=== PATIENT | male | born 1950 | race Caucasian/White ===

== ENCOUNTER 2016-06-18 12:10 | Outpatient (CLI) | payer MEDICARE, MEDICAID | END 2016-06-18 12:11 | disposition home or self-care (01) | DX: E11.9 Type 2 diabetes mellitus without complications (principal); E78.5 Hyperlipidemia, unspecified; E03.9 Hypothyroidism, unspecified; I10 Essential (primary) hypertension; R10.9 Unspecified abdominal pain ==

== ENCOUNTER 2018-01-31 11:15 | Outpatient (CLI) | payer MEDICARE, MEDICAID ==
--- NOTE | 2018-01-31 13:03 | Ultrasound Report ---
Reason: UNDIAGNOSED HEART MURMUR Procedure Date: 01/31/2018 Accession Number: [id number] / [id number] Procedure: US - Aorta Screening CPT Code: FULL RESULT: EXAM: AORTIC DOPPLER ULTRASOUND EXAM DATE: 01/31/2018 11:57 AM. CLINICAL HISTORY: Undiagnosed heart murmur. COMPARISON: Abdomen 01/12/2013 8:37 AM. Abdomen complete 11/11/2015 3:12 PM. TECHNIQUE: Real-time sonographic imaging of retroperitoneal vascular structures, including color-flow, Doppler flow and spectral analysis was performed by the pattern ruler. Multiple patient portal representative static images were saved for review. FINDINGS: Aorta: The abdominal aorta was adequately visualized. There is subjectively atherosclerotic disease without evidence of aneurysm. Aorta: Proximal: Sagittal AP: 2.4 cm. Mid: Transverse: 2.1 x 2.1 cm. Distal: Transverse: 1.8 x 1.9 cm. Caliber WNL: Yes. Plaque visualized: Yes. Iliacs: Right Iliac: Transverse: 0.8 x 0.9 cm. Left Iliac: Transverse: 0.7 x 0.8 cm. Iliac Vessels: The visualized proximal common iliac arteries are normal in caliber. Other: None. IMPRESSION: Atherosclerotic disease. No abdominal aortic aneurysm. RADIA
== END 2018-01-31 11:16 | disposition home or self-care (01) ==
LOC: DI 11:15
PROVIDERS: ATTEND Family Medicine
DX: Z13.6 Encounter for screening for cardiovascular disorders (principal); R01.1 Cardiac murmur, unspecified; F17.200 Nicotine dependence, unspecified, uncomplicated; I70.0 Atherosclerosis of aorta
CPT/HCPCS: 76706

== ENCOUNTER 2018-02-02 11:17 | Outpatient (CLI) | payer MEDICARE, MEDICAID | END 2018-02-02 11:18 | disposition home or self-care (01) | LOC: DI 11:17 | PROVIDERS: ATTEND Family Medicine | DX: R01.1 Cardiac murmur, unspecified (principal); I35.8 Other nonrheumatic aortic valve disorders; I34.0 Nonrheumatic mitral (valve) insufficiency; I51.7 Cardiomegaly | CPT/HCPCS: 93306 ==

== ENCOUNTER 2018-03-10 07:45 | Outpatient (CLI) | payer MEDICARE, MEDICAID | END 2018-03-10 07:46 | disposition short-term general hospital (02) | LOC: EMS 07:45 | PROVIDERS: ATTEND Surgery | DX: M54.5 Low back pain (principal); W08.XXXA Fall from other furniture, initial encounter; Y93.89 Activity, other specified; Y92.008 Other place in unspecified non-institutional (private) residence as the place of occurrence of the external cause | CPT/HCPCS: A0425; A0429 ==

== ENCOUNTER 2019-02-27 05:31 | Outpatient (CLI) | payer MEDICARE, MEDICAID | END 2019-02-27 05:32 | disposition EMS.NT | LOC: EMS 05:31 | PROVIDERS: ATTEND Surgery | DX: R06.02 Shortness of breath (principal) ==

== ENCOUNTER 2019-09-03 17:46 | Outpatient (CLI) | payer MEDICARE, MEDICAID | END 2019-09-03 17:47 | disposition critical access hospital (66) | LOC: EMS 17:46 | PROVIDERS: ATTEND Surgery | DX: R58 Hemorrhage, not elsewhere classified (principal) | CPT/HCPCS: A0425; A0429 ==

== ENCOUNTER 2019-09-03 18:06 | Emergency (ER) | payer MEDICARE, MEDICAID ==
[2019-09-03 18:10] VITALS: BP 118/68
--- NOTE | 2019-09-03 18:10 | ED Physician Documentation ---
History of Present Illness - Stated complaint Stated Complaint: ABNORMAL BLEEDING - History obtained from History obtained from: Patient, EMS - Additonal information Additional information: 68-year-old gentleman gets dialysis on //. After dialysis today the access site in the left upper extremity had continued bleeding which they were unable to stop. He has no other complaints. Review of Systems Constitutional: reports: Reviewed and negative Nose: reports: Reviewed and negative Throat: reports: Reviewed and negative PD PAST MEDICAL HISTORY - Past Medical History Cardiovascular: Hypertension, High cholesterol Respiratory: None Endocrine/Autoimmune: HyPOthyroidism GI: GERD : Dialysis HEENT: None Psych: Schizophrenia Musculoskeletal: Chronic back pain Derm: None - Past Surgical History Past Surgical History: Yes General: Cholecystectomy HEENT: Tonsil/Adenoidectomy - Present Medications Home Medications: Ambulatory Orders Medication Instructions Recorded Confirmed Albuterol Sulfate [Proair Hfa] PRN 07/19/13 01/23/15 Calcium Acetate [Phoslo] 667 mg PO TIDWM 07/19/13 01/23/15 Cholecalciferol (Vitamin D3) 1,000 unit PO BID 07/19/13 01/23/15 [Vitamin D] Gabapentin [Neurontin] 600 mg PO Q6HR 07/19/13 01/23/15 Levothyroxine Sodium [Levoxyl] 225 mcg PO DAILY 07/19/13 01/23/15 Lisinopril 20 mg PO DAILY 07/19/13 01/23/15 Loratadine [Claritin] 10 mg PO DAILY 07/19/13 01/23/15 Methylcellulose [Fiber] 500 mg PO 07/19/13 01/23/15 Metoclopramide Inj [Reglan] 07/19/13 01/23/15 Metoprolol Succinate [Toprol Xl] 25 mg PO DAILY 07/19/13 01/23/15 Metoprolol Succinate [Toprol Xl] 50 mg PO QPM 07/19/13 01/23/15 Morphine Ir [Ms Ir] 15 mg PO Q6H PRN 07/19/13 01/23/15 Olanzapine [Zyprexa] 5 mg PO DAILY 07/19/13 01/23/15 Omeprazole [Prilosec] 40 mg PO DAILY 07/19/13 01/23/15 PARoxetine HCl [Paxil] 20 mg PO DAILY 07/19/13 01/23/15 Sevelamer Carbonate [Renvela] 1,600 mg PO AC 07/19/13 01/23/15 Simvastatin [Zocor] 20 mg PO QPM 07/19/13 01/23/15 levoFLOXacin [Levaquin] 500 mg PO ONCE #5 tablet 04/22/14 01/23/15 Aspirin 325 mg PO DAILY 01/23/15 01/23/15 Testosterone [Androderm] 4 mg TOP DAILY 01/23/15 01/23/15 - Allergies Allergies/Adverse Reactions: Allergies Allergy/AdvReac Type Severity Reaction Status Date / Time Penicillins Allergy Severe Unknown Verified 09/03/19 18:10 codeine AdvReac Severe Unknown Verified 09/03/19 18:10 - Social History Does the pt smoke?: Yes Smoking Status: Current every day smoker Does the pt drink ETOH?: No Does the pt have substance abuse?: No - Immunizations Immunizations are current?: Yes - POLST Patient has POLST: No PD ED PE NORMAL - Vitals Vital signs reviewed: Yes - General General: Alert and oriented X 3, No acute distress - Extremities Extremities: Other (He has a clamp on over the dialysis access on the left upper extremity. On my initial evaluation we remove the clamp and there was no active bleeding.) - Neuro Neuro: Alert and oriented X 3, Normal speech Results - Vitals Vitals: Vital Signs - 24 hr 09/03/19 09/03/19 18:06 18:11 Temperature 37.0 C Heart Rate 88 84 Respiratory 16 16 Rate Blood Pressure 118/68 118/68 O2 Saturation 97 100 Oxygen O2 Source Room air Procedures - Laceration (location) LUE Length in cm: 0.1 Wound type: Linear Anesthesia: Lidocaine 1% with epi Wound Preparation: Betadine Skin layer closure: Nylon, Size #-0 - enter number (4-0), Sutures - enter # (1) Complexity: Simple PD MEDICAL DECISION MAKING - ED course ED course: 68-year-old gentleman presents with vascular access bleeding from dialysis, it has stopped on arrival and we will observe him for a bit to make sure there is no recurrence. Subsequently it did start bleeding again a few minutes later and was closed with a single 4 oh horizontal mattress nylon stitch. Departure - Departure Disposition: 01 Home, Self Care Clinical Impression: Surgical arteriovenous fistula hemorrhage Qualifiers: Encounter type: initial encounter Qualified Code(s): T82.838A - Hemorrhage due to vascular prosthetic devices, implants and grafts, initial encounter Condition: Good Record reviewed to determine appropriate education?: Yes Instructions: ED Shunt Dialysis Fistula Bleeding Comments: Come back for any signs of infection which would include: Redness, swelling, drainage, increased pain, or fevers. You can wash it soap and water. Keep it covered and moist with bacitracin ointment which is available over the counter; avoid neosporin. Follow-up with your physician in 7 days for suture removal. Discharge Date/Time: 09/03/19 18:57
[2019-09-03] MEDS ORDERED: LIDOCAINE 1%-EPI 1:100000 20 ML MDV SUBQ STA (18:20)
== END 2019-09-03 18:57 | disposition home or self-care (01) ==
LOC: EDUNIT# → ED 18:06
DX: T82.838A Hemorrhage due to vascular prosthetic devices, implants and grafts, initial encounter (principal); Y83.2 Surgical operation with anastomosis, bypass or graft as the cause of abnormal reaction of the patient, or of later complication, without mention of misadventure at the time of the procedure; Z99.2 Dependence on renal dialysis; I10 Essential (primary) hypertension; F17.200 Nicotine dependence, unspecified, uncomplicated; Z79.82 Long term (current) use of aspirin
CPT/HCPCS: 12001; 99282; 99283

== ENCOUNTER 2020-05-18 15:38 | Outpatient (CLI) | payer MEDICARE, MEDICAID | END 2020-05-18 15:39 | disposition critical access hospital (66) | LOC: EMS 15:38 | PROVIDERS: ATTEND Emergency Medicine | DX: T82.838A Hemorrhage due to vascular prosthetic devices, implants and grafts, initial encounter (principal) | CPT/HCPCS: A0425; A0429 ==

== ENCOUNTER 2020-05-18 15:40 | Emergency (ER) | payer MEDICARE, MEDICAID ==
[2020-05-18] MEDS ORDERED: SODIUM CHLORIDE 0.9% 1,000 ML IV STA ×2 (15:46→16:09)
--- NOTE | 2020-05-18 15:50 | ED Physician Documentation ---
History of Present Illness - Stated complaint Stated Complaint: BLEED - History obtained from History obtained from: Patient - History of Present Illness Timing: Today Pain level max: 0 Pain level now: 0 - Additonal information Additional information: 69-year-old male with a history of dialysis and AV fistula presents to the emergency department with hemorrhaging from the left AV fistula. Patient is minimally responsive here. Tourniquet applied at 1535 by EMS. Review of Systems Unable to obtain: Unresponsive PD PAST MEDICAL HISTORY - Past Medical History Cardiovascular: Hypertension, High cholesterol Respiratory: None Endocrine/Autoimmune: HyPOthyroidism GI: GERD : Dialysis HEENT: None Psych: Schizophrenia Musculoskeletal: Chronic back pain Derm: None - Past Surgical History Past Surgical History: Yes General: Cholecystectomy HEENT: Tonsil/Adenoidectomy - Present Medications Home Medications: Ambulatory Orders Medication Instructions Recorded Confirmed Albuterol Sulfate [Proair Hfa] PRN 07/19/13 01/23/15 Calcium Acetate [Phoslo] 667 mg PO TIDWM 07/19/13 01/23/15 Cholecalciferol (Vitamin D3) 1,000 unit PO BID 07/19/13 01/23/15 [Vitamin D] Gabapentin [Neurontin] 600 mg PO Q6HR 07/19/13 01/23/15 Levothyroxine Sodium [Levoxyl] 225 mcg PO DAILY 07/19/13 01/23/15 Lisinopril 20 mg PO DAILY 07/19/13 01/23/15 Loratadine [Claritin] 10 mg PO DAILY 07/19/13 01/23/15 Methylcellulose [Fiber] 500 mg PO 07/19/13 01/23/15 Metoclopramide Inj [Reglan] 07/19/13 01/23/15 Metoprolol Succinate [Toprol Xl] 25 mg PO DAILY 07/19/13 01/23/15 Metoprolol Succinate [Toprol Xl] 50 mg PO QPM 07/19/13 01/23/15 Morphine Ir [Ms Ir] 15 mg PO Q6H PRN 07/19/13 01/23/15 Olanzapine [Zyprexa] 5 mg PO DAILY 07/19/13 01/23/15 Omeprazole [Prilosec] 40 mg PO DAILY 07/19/13 01/23/15 PARoxetine HCl [Paxil] 20 mg PO DAILY 07/19/13 01/23/15 Sevelamer Carbonate [Renvela] 1,600 mg PO AC 07/19/13 01/23/15 Simvastatin [Zocor] 20 mg PO QPM 07/19/13 01/23/15 levoFLOXacin [Levaquin] 500 mg PO ONCE #5 tablet 04/22/14 01/23/15 Aspirin 325 mg PO DAILY 01/23/15 01/23/15 Testosterone [Androderm] 4 mg TOP DAILY 01/23/15 01/23/15 - Allergies Allergies/Adverse Reactions: Allergies Allergy/AdvReac Type Severity Reaction Status Date / Time Penicillins Allergy Severe Unknown Verified 09/03/19 18:10 codeine AdvReac Severe Unknown Verified 09/03/19 18:10 - Social History Does the pt smoke?: Yes Smoking Status: Current every day smoker Does the pt drink ETOH?: No Does the pt have substance abuse?: No - Immunizations Immunizations are current?: Yes - POLST Patient has POLST: No PD ED PE NORMAL - Vitals Vital signs reviewed: Yes - General General: Other (pale, minimally responsive) - HEENT HEENT: PERRL, Moist mucous membranes - Neck Neck: Supple, no meningeal sign - Cardiac Cardiac: RRR - Respiratory Respiratory: No respiratory distress, Clear bilaterally - Abdomen Abdomen: Soft, Non tender, Non distended - Derm Derm: Warm and dry - Extremities Extremities: Other (large opening in the L AV fistula, minimal ooze. tourniquet in place. ) - Neuro Neuro: Other (drowsy) Eye Opening: To Pain Motor: Withdraws to Pain Verbal: Incomprehensible GCS Score: 8 Results - Vitals Vitals: Vital Signs - 24 hr 05/18/20 05/18/20 05/18/20 16:00 16:01 16:06 Temperature 36.9 C Heart Rate 126 H 125 H 128 H Respiratory 26 H 22 14 Rate Blood Pressure 111/90 H 111/90 H 59/45 L O2 Saturation 100 98 96 05/18/20 05/18/20 05/18/20 16:10 16:11 16:14 Temperature Heart Rate 128 H 129 H 127 H Respiratory 20 20 20 Rate Blood Pressure 49/38 L 58/38 L 61/42 L O2 Saturation 100 100 100 Oxygen O2 Source Mechanical ventilator - Labs Labs: Laboratory Tests 05/18/20 05/18/2021 15:50 15:50 15:50 WBC 4.6 L RBC 2.49 L Hgb 8.2 L Hct 28.3 L MCV 113.7 H MCH 32.9 H MCHC 29.0 L RDW 13.6 Plt Count 149 MPV 11.2 Neut # (Auto) 2.6 Lymph # (Auto) 1.[address] [place] # (Auto) 0.4 Eos # (Auto) 0.2 Baso # (Auto) 0.1 Absolute Nucleated RBC 0.00 Nucleated RBC % 0.0 Manual Slide Review Indicated Platelet Estimate NORMAL (130-450,000) Platelet Morphology NORMAL APPEARANCE RBC Morph Micro Appear 2+ MACROCYTOSIS PT 11.6 INR 1.0 APTT 54.5 H Sodium 142 Potassium 5.2 H Chloride 95 L Carbon Dioxide 16 L Anion Gap 31.0 H BUN 22 H Creatinine 7.2 H* Estimated GFR (MDRD) 8 L Glucose 252 H Calcium 9.5 Total Bilirubin 0.4 AST 25 ALT 11 Alkaline Phosphatase 119 Total Protein 5.5 L Albumin 3.1 L Globulin 2.4 Albumin/Globulin Ratio 1.3 Lipase 19 L Blood Type Antibody Screen Crossmatch IS Only 05/18/20 15:50 WBC RBC Hgb Hct MCV MCH MCHC RDW Plt Count MPV Neut # (Auto) Lymph # (Auto) [place] # (Auto) Eos # (Auto) Baso # (Auto) Absolute Nucleated RBC Nucleated RBC % Manual Slide Review Platelet Estimate Platelet Morphology RBC Morph Micro Appear PT INR APTT Sodium Potassium Chloride Carbon Dioxide Anion Gap BUN Creatinine Estimated GFR (MDRD) Glucose Calcium Total Bilirubin AST ALT Alkaline Phosphatase Total Protein Albumin Globulin Albumin/Globulin Ratio Lipase Blood Type A POSITIVE Antibody Screen NEGATIVE Crossmatch IS Only See Detail - Rads (name of study) cxr Radiology: Prelim report reviewed, EMP read contemporaneously, See rad report (ETT tube in place) Procedures - Intubation Provider: Emergency physician Medications: Ketamine, Rocuronium Blade: Glidescope Tube: Size-enter number (7.5), Cuffed Route: Oral Confirmation: Direct visualization, Bilateral breath sounds, No abdominal breath sound, End tidal CO2, Pulse ox, Chest xray Complications: No compications PD MEDICAL DECISION MAKING - ED course Complexity details: reviewed results, re-evaluated patient, considered differential, d/w family (patient's prior to life flight leaving), d/w animal nutrition consultant ED course: Patient is a 69-year-old male who was on dialysis, last dialysis was yesterday. AV fistula a large hemorrhage today. Hypotensive. Port accessed. IV fluids and blood given. Patient was intubated. Patient will need to be flown emergently to [facility] for vascular surgery evaluation. Discussed the case with Dr. Barragan, emergency department physician at [facility] in [place] who graciously accepts in transfer. COBRA forms completed. This document was made in part using voice recognition software. While efforts are made to proofread this document, sound alike and grammatical errors may occur. The vascular surgery PA called after the patient had left to go to [facility] in [place]. The history and physical exam as well as the patient's current condition were related to him. The vascular PA questioned why our surgeon was not putting a "stitch in the patient's arm" and why the patient was not sent to [facility] instead. I informed him that they are the closest facility with the appropriate services. This patient is well beyond the scope of a general surgeon at a critical access hospital at this point. The patient is unstable at the time of transfer but as stable as our capabilities would allow here. The tourniquet was left in place. - Critical Care Time(min): 45 Time Includes: Direct patient care, Review records, Reassess patient, Document care, Coordinate care, Medical consult, See progress note Data interpretation: See progress note Procedures included in critical care time: See progress note Procedures excluded from critical care time: Intubation, See progress note Departure - Departure Disposition: 02 Transfer Acute Care Hosp Clinical Impression: Hemorrhage Hemorrhage of arteriovenous fistula Qualifiers: Encounter type: initial encounter Qualified Code(s): T82.838A - Hemorrhage due to vascular prosthetic devices, implants and grafts, initial encounter Condition: Critical Discharge Date/Time: 05/18/20 16:30
[2020-05-18 15:57] LABS: BASOPHILS # (AUTO) 0.1 10^3/uL (0.0-0.1); BASOPHILS % (AUTO) 1.3 %; EOSINOPHILS # (AUTO) 0.2 10^3/uL (0.0-0.7); EOSINOPHILS % (AUTO) 3.9 %; HCT - HEMATOCRIT 28.3 % (42.0-52.0); HGB - HEMOGLOBIN 8.2 g/dL (14.0-18.0); LYMPHOCYTES # (AUTO) 1.3 10^3/uL (1.5-3.5); LYMPHOCYTES % (AUTO) 27.5 %; MEAN CORPUSCULAR HEMOGLOBIN 32.9 pg (27.0-31.0); MEAN CORPUSCULAR VOLUME 113.7 fL (80.0-94.0); MEAN PLATELET VOLUME 11.2 fL (7.4-11.4); MONOCYTES # (AUTO) 0.4 10^3/uL (0.0-1.0); MONOCYTES % (AUTO) 9.3 %; NEUTROPHILS # (AUTO) 2.6 10^3/uL (1.5-6.6); NEUTROPHILS % (AUTO) 57.3 %; PLT - PLATELET COUNT 149 10^3/uL (130-450); RED BLOOD COUNT 2.49 10^6/uL (4.70-6.10); RED CELL DISTRIBUTION WIDTH 13.6 % (12.0-15.0); WHITE BLOOD COUNT 4.6 x10^3/uL (4.8-10.8)
[2020-05-18 16:02] LABS: SLIDE REVIEW? Indicated
[2020-05-18 16:03] LABS: PT - PROTHROMBIN TIME 11.6 secs (9.9-12.6)
[2020-05-18 16:10] LABS: PARTIAL THROMBOPLASTIN TIME 54.5 secs (24.9-33.3)
[2020-05-18] MEDS ORDERED: ROCURONIUM 50 MG/5 ML VIAL ONE (16:11)
[2020-05-18 16:13] LABS: ALBUMIN 3.1 g/dL (3.2-5.5); ALBUMIN/GLOBULIN RATIO 1.3 (1.0-2.2); BILIRUBIN,TOTAL 0.4 mg/dL (0.2-1.0); CALCIUM 9.5 mg/dL (8.5-10.3); POTASSIUM 5.2 mmol/L (3.5-5.0); TOTAL PROTEIN 5.5 g/dL (6.7-8.2)
[2020-05-18] MEDS ORDERED: ROCURONIUM 50 MG/5 ML VIAL IVP STA (16:13)
[2020-05-18] MEDS ORDERED: KETAMINE 500 MG/10 ML VIAL IVP STA (16:13)
[2020-05-18 16:19] LABS: CREATININE 7.2 mg/dL (0.6-1.2)
[2020-05-18 16:22] LABS: PLATELET ESTIMATE, MANUAL NORMAL (130-450,000) (NORMAL); PLATELET MORPHOLOGY NORMAL APPEARANCE (NORMAL); RBC MORPHOLOGY (MULTIPLE) 2+ MACROCYTOSIS (NORMAL)
--- NOTE | 2020-05-18 16:32 | XRAY Report ---
PROCEDURE: Post ET Tube 1V CXR INDICATIONS: New Intubation TECHNIQUE: One view of the chest was acquired. COMPARISON: CXR 02/11/2016. FINDINGS: Surgical changes and devices: Endotracheal tube in the mid trachea. Right-sided port with the cathete r tip in the region of the cavoatrial junction. External pacing pad. ACDF. Lungs and pleura: No pleural effusions or pneumothorax. Lungs are clear. Mediastinum: Mediastinal contours appear normal. Heart size is normal. Bones and chest wall: No suspicious bony lesions. Overlying soft tissues appear unremarkable. IMPRESSION: Endotracheal tube in the mid trachea and satisfactory position. No obvious airspace opacity. Reviewed by: Ravinder Mendoza MD on 05/18/2020 3:31 PM JOHN Approved by: Ravinder Mendoza MD on 05/18/2020 3:31 PM JOHN Station ID: [id number]
[2020-05-18 19:16] VITALS: BP 61/42
== END 2020-05-18 16:30 | disposition short-term general hospital (02) ==
LOC: EDUNIT# → EDBD → SUPCPDRO 15:40 → ED 15:40
DX: T82.838A Hemorrhage due to vascular prosthetic devices, implants and grafts, initial encounter (principal); Y83.2 Surgical operation with anastomosis, bypass or graft as the cause of abnormal reaction of the patient, or of later complication, without mention of misadventure at the time of the procedure; Y92.002 Bathroom of unspecified non-institutional (private) residence as the place of occurrence of the external cause; I95.9 Hypotension, unspecified; R40.0 Somnolence; Z99.2 Dependence on renal dialysis; I10 Essential (primary) hypertension; Z79.82 Long term (current) use of aspirin; F17.200 Nicotine dependence, unspecified, uncomplicated
CPT/HCPCS: 31500; 36415; 36430; 71045; 80053; 83690; 85025; 85610; 85730; 86850; 86900; 86901; 86920; 96361; 96374; 99291; P9016

== ENCOUNTER 2020-06-21 15:51 | Emergency (ER) | payer MEDICARE, MEDICAID ==
--- OUTSIDE RECORDS SUMMARY | 2020-06-21 15:56 | EXTERNAL MEDICAL SUMMARY RPT | Continuity of Care Document ---
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 [id number] Secondary malignant neoplasm of [facility] [id number] Malignant neoplasm of upper lobe, [facility]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 [id number] [facility] [id number] Secondary malignant neoplasm of [facility] [id number] Mal[facility] ne[facility] of [facility], [facility]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 [id number] Secondary malignant neoplasm of [facility] [id number] Malignant neoplasm of [facility] of unspecified bronch [id number] Secondary malignant neoplasm of [facility] [id number] [facility] [employer] [id number] neutropenic fever [employer] [facility] Medications date description facility [id number] Docusate Sodium 100 MG Oral Capsule [facility] [id number] atorvastatin [address] [facility] 87665715 pioglitazone [address] [facility] 02759146 Acetaminophen 325 MG Oral Tablet [facility] 08178506 Metoprolol Tartrate [address] [facility] Procedures date description facility [id number] [facility] date description facility [id number] [facility] date description facility [id number] [facility] Vital Signs date measurement value source 20200407 BP_diastolic 67 mm[Hg] 94717448 BP_systolic 145 mm[Hg] 28717563 heart_rate 77 /min 20572070 respiration_rate 20 /min 82133854 temperature_metric 37 C 50670168 temperature_standard 98.6 F 16097009 weight_metric 33.95 kg 57624722 weight_standard 74.84 lb date measurement value source 78270359 BP_diastolic 54 mm[Hg] 66769140 BP_systolic 103 mm[Hg] 42444203 heart_rate 122 /min 22371511 respiration_rate 8 /min 15229781 temperature_metric 39.56 C 39162397 temperature_standard 103.2 F Social History date description facility [id number]
--- OUTSIDE RECORDS SUMMARY | 2020-06-21 16:41 | EXTERNAL MEDICAL SUMMARY RPT | Continuity of Care Document ---
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 of unspecified bronch 51943231 Secondary malignant neoplasm of [facility] 86962314 [facility] [employer] [id number] neutropenic fever [employer] Medications date description facility [id number] Docusate Sodium 100 MG Oral Capsule [facility] 20021825 atorvastatin 80 MG Oral Tablet [facility] 25473515 pioglitazone 45 MG Oral Tablet [facility] 77892310 Acetaminophen 325 MG Oral Tablet [facility] 64141377 Metoprolol Tartrate 25 MG Oral Tablet [facility] Procedures date description facility [id number] [facility] date description facility [id number] [facility] date description facility 20200612 [facility] Vital Signs date measurement value source 20200407 BP_diastolic 67 mm[Hg] 70884806 BP_systolic 145 mm[Hg] 89343032 heart_rate 77 /min 94191911 respiration_rate 20 /min 60613482 temperature_metric 37 C 42537601 temperature_standard 98.6 F 51794900 weight_metric 33.95 kg 26650083 weight_standard 74.84 lb date measurement value source 68886464 BP_diastolic 54 mm[Hg] 05193677 BP_systolic 103 mm[Hg] 64214584 heart_rate 122 /min 02497618 respiration_rate 8 /min 23822348 temperature_metric 39.56 C 44815418 temperature_standard 103.2 F Social History date description facility [id number]
[2020-06-21 16:55] LABS: BASOPHILS # (AUTO) 0.1 10^3/uL (0.0-0.1); BASOPHILS % (AUTO) 1.6 %; EOSINOPHILS # (AUTO) 0.1 10^3/uL (0.0-0.7); EOSINOPHILS % (AUTO) 3.1 %; HCT - HEMATOCRIT 29.6 % (42.0-52.0); LYMPHOCYTES # (AUTO) 0.5 10^3/uL (1.5-3.5); LYMPHOCYTES % (AUTO) 13.2 %; MEAN CORPUSCULAR HEMOGLOBIN 31.1 pg (27.0-31.0); MEAN CORPUSCULAR HGB CONC 30.4 g/dL (32.0-36.0); MEAN CORPUSCULAR VOLUME 102.4 fL (80.0-94.0); MEAN PLATELET VOLUME 11.8 fL (7.4-11.4); MONOCYTES # (AUTO) 0.5 10^3/uL (0.0-1.0); MONOCYTES % (AUTO) 12.2 %; NEUTROPHILS # (AUTO) 2.6 10^3/uL (1.5-6.6); NEUTROPHILS % (AUTO) 68.3 %; PLT - PLATELET COUNT 173 10^3/uL (130-450); RED BLOOD COUNT 2.89 10^6/uL (4.70-6.10); RED CELL DISTRIBUTION WIDTH 18.3 % (12.0-15.0); WHITE BLOOD COUNT 3.9 x10^3/uL (4.8-10.8)
[2020-06-21 17:03] LABS: PT - PROTHROMBIN TIME 11.5 secs (9.9-12.6)
[2020-06-21 17:04] VITALS: BP 120/63
[2020-06-21 17:06] LABS: ALBUMIN 3.3 g/dL (3.2-5.5); ALKALINE PHOSPHATASE 127 IU/L (42-121); ALT ALANINE AMINOTRANSFERASE < 10 IU/L (10-60); AST ASPARTATE AMINOTRANSFERASE 20 IU/L (10-42); BILIRUBIN,TOTAL 0.4 mg/dL (0.2-1.0); BUN - BLOOD UREA NITROGEN 28 mg/dL (6-20); CALCIUM 9.5 mg/dL (8.5-10.3); CARBON DIOXIDE - CO2 29 mmol/L (21-32); CHLORIDE 99 mmol/L (101-111); CREATININE 5.1 mg/dL (0.6-1.2); GFR - MDRD 11 (>89); GLUCOSE 151 mg/dL (70-100); LIPASE 28 U/L (22-51); SODIUM 141 mmol/L (135-145); TOTAL PROTEIN 6.6 g/dL (6.7-8.2)
--- NOTE | 2020-06-21 17:13 | ED Physician Documentation ---
History of Present Illness - Stated complaint Stated Complaint: SENT BY FOR LOW HEMOGLOBIN - Chief complaint Chief Complaint: General - History obtained from History obtained from: Patient - Additonal information Additional information: 69-year-old gentleman with history of stroke and dialysis. Reportedly had a lab draw yesterday during dialysis and was called by his warehouse distribution specialist and referred here because his hemoglobin was low and they recommended a transfusion. He says he feels fine without dark or tarry stools, weakness or dizziness. 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" - Past Surgical History Past Surgical History: Yes General: Cholecystectomy Neuro: Other HEENT: Tonsil/Adenoidectomy - Present Medications Home Medications: Ambulatory Orders Medication Instructions Recorded Confirmed Albuterol Sulfate [Proair Hfa] PRN 07/19/13 01/23/15 Calcium Acetate [Phoslo] 667 mg PO TIDWM 07/19/13 01/23/15 Cholecalciferol (Vitamin D3) 1,000 unit PO BID 07/19/13 01/23/15 [Vitamin D] Gabapentin [Neurontin] 600 mg PO Q6HR 07/19/13 01/23/15 Levothyroxine Sodium [Levoxyl] 225 mcg PO DAILY 07/19/13 01/23/15 Lisinopril 20 mg PO DAILY 07/19/13 01/23/15 Loratadine [Claritin] 10 mg PO DAILY 07/19/13 01/23/15 Methylcellulose [Fiber] 500 mg PO 07/19/13 01/23/15 Metoclopramide Inj [Reglan] 07/19/13 01/23/15 Metoprolol Succinate [Toprol Xl] 25 mg PO DAILY 07/19/13 01/23/15 Metoprolol Succinate [Toprol Xl] 50 mg PO QPM 07/19/13 01/23/15 Morphine Ir [Ms Ir] 15 mg PO Q6H PRN 07/19/13 01/23/15 Olanzapine [Zyprexa] 5 mg PO DAILY 07/19/13 01/23/15 Omeprazole [Prilosec] 40 mg PO DAILY 07/19/13 01/23/15 PARoxetine HCl [Paxil] 20 mg PO DAILY 07/19/13 01/23/15 Sevelamer Carbonate [Renvela] 1,600 mg PO AC 07/19/13 01/23/15 Simvastatin [Zocor] 20 mg PO QPM 07/19/13 01/23/15 levoFLOXacin [Levaquin] 500 mg PO ONCE #5 tablet 04/22/14 01/23/15 Aspirin 325 mg PO DAILY 01/23/15 01/23/15 Testosterone [Androderm] 4 mg TOP DAILY 01/23/15 01/23/15 - Allergies Allergies/Adverse Reactions: Allergies Allergy/AdvReac Type Severity Reaction Status Date / Time Penicillins Allergy Severe Unknown Verified 06/21/20 15:59 codeine AdvReac Severe Unknown Verified 06/21/20 15:59 - Social History Does the pt smoke?: Yes Smoking Status: Current every day smoker Does the pt drink ETOH?: No Does the pt have substance abuse?: No - Immunizations Immunizations are current?: Yes - POLST Patient has POLST: No PD ED PE NORMAL - Vitals Vital signs reviewed: Yes - General General: Alert and oriented X 3, Other (slight slurred speech from prior stroke) - Neck Neck: Supple, no meningeal sign, No bony TTP - Abdomen Abdomen: Soft, Non tender - Back Back: No CVA TTP - Neuro Neuro: Alert and oriented X 3, Normal speech Results - Vitals Vitals: Vital Signs - 24 hr 06/21/20 06/21/20 15:59 17:03 Temperature 36.5 C 36.9 C Heart Rate 85 85 Respiratory 16 15 Rate Blood Pressure 110/50 L 120/63 O2 Saturation 98 100 Oxygen O2 Source Room air - Labs Labs: Laboratory Tests 06/21/20 06/21/20 06/21/20 16:47 16:47 16:47 WBC 3.9 L RBC 2.89 L Hgb 9.0 L Hct 29.6 L MCV 102.4 H MCH 31.1 H MCHC 30.4 L RDW 18.3 H Plt Count 173 MPV 11.8 H Neut # (Auto) 2.6 Lymph # (Auto) 0.5 L Barber # (Auto) 0.5 Eos # (Auto) 0.1 Baso # (Auto) 0.1 Absolute Nucleated RBC 0.00 Nucleated RBC % 0.0 PT 11.5 INR 1.0 Sodium 141 Potassium 5.0 Chloride 99 L Carbon Dioxide 29 Anion Gap 13.0 BUN 28 H Creatinine 5.1 H Estimated GFR (MDRD) 11 L Glucose 151 H Calcium 9.5 Total Bilirubin 0.4 AST 20 ALT < 10 L Alkaline Phosphatase 127 H Total Protein 6.6 L Albumin 3.3 Globulin 3.3 Albumin/Globulin Ratio 1.0 Lipase 28 PD MEDICAL DECISION MAKING - ED course ED course: With the warehouse distribution specialist on-call for Dr. Vital who had referred him in. He states that their lab had told him that it was 6.5. Today it is 9 which is at his baseline negating necessity for further work-up. Departure - Departure Disposition: 01 Home, Self Care Clinical Impression: Chronic anemia Renal failure Qualifiers: Renal failure chronicity: chronic Chronic kidney disease stage: on chronic dialysis Qualified Code(s): N18.6 - End stage renal disease; Z99.2 - Dependence on renal dialysis Condition: Good Record reviewed to determine appropriate education?: Yes Comments: For us, your labs are basically at their baseline. Presume that the values from yesterday were a lab error or somehow from dilution. Dialysis as routine.
== END 2020-06-21 17:22 | disposition home or self-care (01) ==
LOC: ED 15:51
DX: D53.9 Nutritional anemia, unspecified (principal); I12.0 Hypertensive chronic kidney disease with stage 5 chronic kidney disease or end stage renal disease; N18.6 End stage renal disease; Z99.2 Dependence on renal dialysis; I69.328 Other speech and language deficits following cerebral infarction; F17.200 Nicotine dependence, unspecified, uncomplicated
CPT/HCPCS: 36415; 80053; 83690; 85025; 85610; 86850; 86900; 86901; 99283

== ENCOUNTER 2020-07-11 09:10 | Outpatient (CLI) | payer MEDICARE, MEDICAID | END 2020-07-11 09:11 | disposition home or self-care (01) | LOC: LAB 09:10 | PROVIDERS: ATTEND Surgery Vascular Surgery | DX: Z20.822 Contact with and (suspected) exposure to COVID-19 (principal) ==

== ENCOUNTER 2020-09-26 08:59 | Outpatient (CLI) | payer MEDICARE, MEDICAID | END 2020-09-26 09:00 | disposition home or self-care (01) | LOC: LAB 08:59 | PROVIDERS: ATTEND Specialist | DX: Z20.822 Contact with and (suspected) exposure to COVID-19 (principal) ==

== ENCOUNTER 2020-11-04 11:57 | Outpatient (CLI) | payer MEDICARE, MEDICAID ==
[2020-11-04 13:04] LABS: CHOL/HDL RATIO 2.1 (<5.0); CHOLESTEROL 105 mg/dL; HDL CHOLESTEROL 50 mg/dL; LDL CHOLESTEROL,CALCULATED 39 mg/dL; LDL/HDL RATIO 0.8 (<3.6); TRIGLYCERIDES 80 mg/dL; VLDL CHOLESTEROL 16 mg/dL
[2020-11-04 13:18] LABS: ESTIMATED AVERAGE GLUCOSE 151 mg/dL (70-100); HEMOGLOBIN A1c% 6.9 % (4.27-6.07)
== END 2020-11-04 11:58 | disposition home or self-care (01) ==
LOC: LAB 11:57
PROVIDERS: ATTEND Family Medicine
DX: E11.9 Type 2 diabetes mellitus without complications (principal); E78.5 Hyperlipidemia, unspecified
CPT/HCPCS: 36415; 80061; 82043; 82570; 83036; 83721

== ENCOUNTER 2020-12-08 07:00 | Outpatient (CLI) | payer MEDICARE, MEDICAID | END 2020-12-08 23:59 | disposition home or self-care (01) | LOC: LAB 07:00 | PROVIDERS: ATTEND Surgery | DX: Z01.812 Encounter for preprocedural laboratory examination (principal); Z20.822 Contact with and (suspected) exposure to COVID-19 ==

== ENCOUNTER 2021-02-03 10:38 | Outpatient (CLI) | payer MEDICARE, MEDICAID ==
[2021-02-03 10:56] LABS: BASOPHILS % (AUTO) 0.9 %; EOSINOPHILS # (AUTO) 0.3 10^3/uL (0.0-0.7); EOSINOPHILS % (AUTO) 5.3 %; HCT - HEMATOCRIT 31.3 % (42.0-52.0); HGB - HEMOGLOBIN 10.1 g/dL (14.0-18.0); LYMPHOCYTES # (AUTO) 0.4 10^3/uL (1.5-3.5); LYMPHOCYTES % (AUTO) 8.5 %; MEAN CORPUSCULAR HEMOGLOBIN 33.2 pg (27.0-31.0); MEAN CORPUSCULAR HGB CONC 32.3 g/dL (32.0-36.0); MEAN PLATELET VOLUME 11.1 fL (7.4-11.4); MONOCYTES # (AUTO) 0.4 10^3/uL (0.0-1.0); MONOCYTES % (AUTO) 8.8 %; NEUTROPHILS # (AUTO) 3.6 10^3/uL (1.5-6.6); NEUTROPHILS % (AUTO) 75.9 %; PLT - PLATELET COUNT 91 10^3/uL (130-450); RED BLOOD COUNT 3.04 10^6/uL (4.70-6.10); RED CELL DISTRIBUTION WIDTH 14.4 % (12.0-15.0); WHITE BLOOD COUNT 4.7 x10^3/uL (4.8-10.8)
[2021-02-03 11:17] LABS: ALBUMIN 3.6 g/dL (3.2-5.5); ALBUMIN/GLOBULIN RATIO 1.1 (1.0-2.2); ALKALINE PHOSPHATASE 241 IU/L (42-121); ALT ALANINE AMINOTRANSFERASE 18 IU/L (10-60); AST ASPARTATE AMINOTRANSFERASE 20 IU/L (10-42); BUN - BLOOD UREA NITROGEN 28 mg/dL (6-20); CARBON DIOXIDE - CO2 31 mmol/L (21-32); CHLORIDE 90 mmol/L (101-111); CHOL/HDL RATIO 2.1 (<5.0); CHOLESTEROL 109 mg/dL; CREATININE 4.5 mg/dL (0.6-1.2); GFR - MDRD 13 (>89); GLUCOSE 172 mg/dL (70-100); HDL CHOLESTEROL 53 mg/dL; LDL CHOLESTEROL,CALCULATED 45 mg/dL; LDL/HDL RATIO 0.8 (<3.6); POTASSIUM 4.2 mmol/L (3.5-5.0); SODIUM 135 mmol/L (135-145); TOTAL PROTEIN 6.8 g/dL (6.7-8.2); TRIGLYCERIDES 56 mg/dL; VLDL CHOLESTEROL 11 mg/dL
[2021-02-03 11:29] LABS: THYROID STIMULATING HORMONE 2.52 uIU/mL (0.34-5.60)
[2021-02-03 11:31] LABS: FREE T4 (FREE THYROXINE) 1.18 ng/dL (0.58-1.64)
[2021-02-03 13:28] LABS: ESTIMATED AVERAGE GLUCOSE 166 mg/dL (70-100); HEMOGLOBIN A1c% 7.4 % (4.27-6.07)
== END 2021-02-03 10:39 | disposition home or self-care (01) ==
LOC: LAB 10:38
PROVIDERS: ATTEND Family Medicine
DX: I12.0 Hypertensive chronic kidney disease with stage 5 chronic kidney disease or end stage renal disease (principal); N18.6 End stage renal disease; E11.22 Type 2 diabetes mellitus with diabetic chronic kidney disease; E03.9 Hypothyroidism, unspecified
CPT/HCPCS: 36415; 80053; 80061; 83036; 83721; 84439; 84443; 85025

== ENCOUNTER 2021-05-12 09:32 | Outpatient (CLI) | payer MEDICARE, MEDICAID ==
[2021-05-12 10:15] LABS: ALBUMIN 3.3 g/dL (3.2-5.5); ALKALINE PHOSPHATASE 172 IU/L (42-121); ALT ALANINE AMINOTRANSFERASE 17 IU/L (10-60); AST ASPARTATE AMINOTRANSFERASE 24 IU/L (10-42); BILIRUBIN,TOTAL 0.8 mg/dL (0.2-1.0); BUN - BLOOD UREA NITROGEN 32 mg/dL (6-20); CALCIUM 8.9 mg/dL (8.5-10.3); CARBON DIOXIDE - CO2 30 mmol/L (21-32); CHLORIDE 91 mmol/L (101-111); CHOL/HDL RATIO 2.4 (<5.0); CHOLESTEROL 156 mg/dL; CREATININE 4.3 mg/dL (0.6-1.2); GFR - MDRD 14 (>89); GLUCOSE 181 mg/dL (70-100); HDL CHOLESTEROL 65 mg/dL; LDL CHOLESTEROL,CALCULATED 71 mg/dL; LDL/HDL RATIO 1.1 (<3.6); POTASSIUM 4.1 mmol/L (3.5-5.0); SODIUM 135 mmol/L (135-145); TOTAL PROTEIN 6.5 g/dL (6.7-8.2); TRIGLYCERIDES 98 mg/dL; VLDL CHOLESTEROL 20 mg/dL
[2021-05-12 20:14] LABS: ESTIMATED AVERAGE GLUCOSE 186 mg/dL (70-100); HEMOGLOBIN A1c% 8.1 % (4.27-6.07)
== END 2021-05-12 09:33 | disposition home or self-care (01) ==
LOC: LAB 09:32
PROVIDERS: ATTEND Family Medicine
DX: E11.9 Type 2 diabetes mellitus without complications (principal)
CPT/HCPCS: 36415; 80053; 80061; 82043; 82570; 83036; 83721

== ENCOUNTER 2021-06-18 10:01 | Outpatient (CLI) | payer MEDICARE, MEDICAID ==
[2021-06-18 10:42] LABS: ALBUMIN 3.4 g/dL (3.2-5.5); ALBUMIN/GLOBULIN RATIO 1.1 (1.0-2.2); ALKALINE PHOSPHATASE 152 IU/L (42-121); ALT ALANINE AMINOTRANSFERASE 18 IU/L (10-60); AST ASPARTATE AMINOTRANSFERASE 22 IU/L (10-42); BILIRUBIN,TOTAL 0.8 mg/dL (0.2-1.0); BUN - BLOOD UREA NITROGEN 27 mg/dL (6-20); CALCIUM 9.2 mg/dL (8.5-10.3); CARBON DIOXIDE - CO2 32 mmol/L (21-32); CHLORIDE 92 mmol/L (101-111); CHOL/HDL RATIO 1.9 (<5.0); CHOLESTEROL 151 mg/dL; CREATININE 4.3 mg/dL (0.6-1.2); GFR - MDRD 14 (>89); GLUCOSE 202 mg/dL (70-100); HDL CHOLESTEROL 80 mg/dL; LDL CHOLESTEROL,CALCULATED 57 mg/dL; LDL/HDL RATIO 0.7 (<3.6); POTASSIUM 4.3 mmol/L (3.5-5.0); SODIUM 137 mmol/L (135-145); TOTAL PROTEIN 6.6 g/dL (6.7-8.2); TRIGLYCERIDES 69 mg/dL; VLDL CHOLESTEROL 14 mg/dL
== END 2021-06-18 10:02 | disposition home or self-care (01) ==
LOC: LAB 10:01
PROVIDERS: ATTEND Family Medicine
DX: E11.9 Type 2 diabetes mellitus without complications (principal)
CPT/HCPCS: 36415; 80053; 80061; 81599; 82043; 82570; 83036; 83721

== ENCOUNTER 2021-09-17 09:38 | Outpatient (CLI) | payer MEDICARE, MEDICAID ==
[2021-09-17 10:12] LABS: ALBUMIN 3.4 g/dL (3.2-5.5); ALBUMIN/GLOBULIN RATIO 1.1 (1.0-2.2); ALKALINE PHOSPHATASE 271 IU/L (42-121); ALT ALANINE AMINOTRANSFERASE 22 IU/L (10-60); AST ASPARTATE AMINOTRANSFERASE 32 IU/L (10-42); BILIRUBIN,TOTAL 1.1 mg/dL (0.2-1.0); BUN - BLOOD UREA NITROGEN 30 mg/dL (6-20); CALCIUM 9.8 mg/dL (8.5-10.3); CARBON DIOXIDE - CO2 33 mmol/L (21-32); CHLORIDE 90 mmol/L (101-111); CHOL/HDL RATIO 1.8 (<5.0); CHOLESTEROL 128 mg/dL; CREATININE 3.5 mg/dL (0.6-1.2); GFR - MDRD 18 (>89); GLUCOSE 135 mg/dL (70-100); HDL CHOLESTEROL 71 mg/dL; LDL CHOLESTEROL,CALCULATED 43 mg/dL; LDL/HDL RATIO 0.6 (<3.6); POTASSIUM 3.6 mmol/L (3.5-5.0); SODIUM 135 mmol/L (135-145); TOTAL PROTEIN 6.6 g/dL (6.7-8.2); TRIGLYCERIDES 72 mg/dL; VLDL CHOLESTEROL 14 mg/dL
[2021-09-17 10:23] LABS: THYROID STIMULATING HORMONE 46.9 uIU/mL (0.34-5.60)
[2021-09-17 11:10] LABS: ESTIMATED AVERAGE GLUCOSE 171 mg/dL (70-100); HEMOGLOBIN A1c% 7.6 % (4.27-6.07)
[2021-09-17 11:19] LABS: FREE T4 (FREE THYROXINE) 1.32 ng/dL (0.58-1.64)
== END 2021-09-17 09:39 | disposition home or self-care (01) ==
LOC: LAB 09:38
PROVIDERS: ATTEND Family Medicine
DX: E11.9 Type 2 diabetes mellitus without complications (principal); E78.5 Hyperlipidemia, unspecified; I63.9 Cerebral infarction, unspecified; N04.9 Nephrotic syndrome with unspecified morphologic changes; I10 Essential (primary) hypertension; E03.9 Hypothyroidism, unspecified
CPT/HCPCS: 36415; 80053; 80061; 83036; 83721; 84439; 84443

== ENCOUNTER 2021-09-24 16:28 | Emergency (ER) | payer MEDICARE, MEDICAID ==
--- OUTSIDE RECORDS SUMMARY | 2021-09-24 16:36 | EXTERNAL MEDICAL SUMMARY RPT | Continuity of Care Document ---
:1950 Author Organization [facility] Address [address] [place] [id number] Phone Allergies No information. Encounters No information. Functional Status No information. Immunizations No information. Medications No information. Problems No information. Procedures No information. Results/Labs test date author facility value unit interpret ation Result panel 1 (unknown) (no date) (unknown) (unknown) 0 /uL (unkn own) (unknown) (no date) (unknown) (unknown) 1.0 % (unkn own) (unknown) (no date) (unknown) (unknown) 10.3 g/dL (unkn own) (unknown) (no date) (unknown) (unknown) 100 /uL (unkn own) (unknown) (no date) (unknown) (unknown) 103 X10 3/uL (unkn own) (unknown) (no date) (unknown) (unknown) 15.2 % (unkn own) (unknown) (no date) (unknown) (unknown) 3.05 X10 6/uL (unkn own) (unknown) (no date) (unknown) (unknown) 3.1 % (unkn own) (unknown) (no date) (unknown) (unknown) 30.2 % (unkn own) (unknown) (no date) (unknown) (unknown) 3200 /uL (unkn own) (unknown) (no date) (unknown) (unknown) 33.6 PG (unkn own) (unknown) (no date) (unknown) (unknown) 34.0 % (unkn own) (unknown) (no date) (unknown) (unknown) 4.2 X10 3/uL (unkn own) (unknown) (no date) (unknown) (unknown) 400 /uL (unkn own) (unknown) (no date) (unknown) (unknown) 400 /uL (unkn own) (unknown) (no date) (unknown) (unknown) 76.8 % (unkn own) (unknown) (no date) (unknown) (unknown) 9.3 % (unkn own) (unknown) (no date) (unknown) (unknown) 9.8 % (unkn own) (unknown) (no date) (unknown) (unknown) 99.0 fL (unkn own) Result panel 2 (unknown) (no date) (unknown) (unknown) 0.7 mg/dL (unkn own) (unknown) (no date) (unknown) (unknown) 1.4 (units unknown) (unknown) (unknown) (no date) (unknown) (unknown) 136 mmol/L (unkn own) (unknown) (no date) (unknown) (unknown) 18 mL/min (unkn own) (unknown) (no date) (unknown) (unknown) 185 mg/dL (unkn own) (unknown) (no date) (unknown) (unknown) 199 U/L (unkn own) (unknown) (no date) (unknown) (unknown) 2.7 g/dL (unkn own) (unknown) (no date) (unknown) (unknown) 20 IU/L (unkn own) (unknown) (no date) (unknown) (unknown) 3.58 mg/dL (unkn own) (unknown) (no date) (unknown) (unknown) 3.9 g/dL (unkn own) (unknown) (no date) (unknown) (unknown) 3.9 mmol/L (unkn own) (unknown) (no date) (unknown) (unknown) 33 IU/L (unkn own) (unknown) (no date) (unknown) (unknown) 35 mg/dL (unkn own) (unknown) (no date) (unknown) (unknown) 36 mmol/L (unkn own) (unknown) (no date) (unknown) (unknown) 6.6 g/dL (unkn own) (unknown) (no date) (unknown) (unknown) 9.3 mg/dL (unkn own) (unknown) (no date) (unknown) (unknown) 9.8 (units unknown) (unknown) (unknown) (no date) (unknown) (unknown) 94 mmol/L (unkn own) Result panel 3 (unknown) (no (unknown) (unknown) (no value) (units (unk nown) date) unknown) (unknown) (no (unknown) (unknown) Date of Service: (units (unknown) date) 07/02/21 unknown) (unknown) (no (unknown) (unknown) (no value) (units (unk nown) date) unknown) (unknown) (no (unknown) (unknown) Allergies (units (unkn own) date) unknown) (unknown) (no (unknown) (unknown) Home Medications (units (unknown) date) unknown) (unknown) (no (unknown) (unknown) Intake and Output (units (unknown) date) unknown) (unknown) (no (unknown) (unknown) [facility] (units (unknown) date) [address] unknown) [place] [address] (unknown) (no (unknown) (unknown) Laboratory Last (units (unknown) date) Values unknown) (unknown) (no (unknown) (unknown) Oncology Progress (units (unknown) date) Note unknown) (unknown) (no (unknown) (unknown) Patient Weight (units (unknown) date) unknown) (unknown) (no (unknown) (unknown) (no value) (units (unk nown) date) unknown) (unknown) (no (unknown) (unknown) Weight 79.3 kg (units (unknown) date) unknown) (unknown) (no (unknown) (unknown) 07/01/21 07/02/21 (units (unknown) date) 07/02/21 unknown) (unknown) (no (unknown) (unknown) 07/02/21 (units (unkno wn) date) unknown) (unknown) (no (unknown) (unknown) 23:59 (units (unkno wn) date) unknown) (unknown) (no (unknown) (unknown) 23:59 07:59 15:59 (units (unknown) date) unknown) (unknown) (no (unknown) (unknown) Medication (units (unk nown) date) Instructions unknown) Recorded Confirmed Type (unknown) (no (unknown) (unknown) Rx (units (unkno wn) date) unknown) (unknown) (no (unknown) (unknown) am recommending we (units (unknown) date) continue the unknown) immunotherapy with pembrolizumab. On top of (unknown) (no (unknown) (unknown) and complications (units (unknown) date) of Alimta and unknown) Avastin. 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 unknown) (unknown) (no (unknown) (unknown) (Incruse Ellipta) (units (unknown) date) unknown) (unknown) (no (unknown) (unknown) (Renvela) (units (unkn own) date) unknown) (unknown) (no (unknown) (unknown) - Date of Visit (units (unknown) date) unknown) (unknown) (no (unknown) (unknown) - Imaging (units (unkn own) date) unknown) (unknown) (no (unknown) (unknown) - Labs (units (unkno wn) date) unknown) (unknown) (no (unknown) (unknown) - Patient (units (unkn own) date) Self-Reported unknown) Symptoms (unknown) (no (unknown) (unknown) [id number] (units (unkno wn) date) unknown) (unknown) (no (unknown) (unknown) 05/23/2018. (units (un known) date) unknown) (unknown) (no (unknown) (unknown) 1. 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 (unknown) (no (unknown) (unknown) 2. Stereotactic (units (unknown) date) radiation to the unknown) brain (unknown) (no (unknown) (unknown) 04/01/2021 with (units ( unknown) date) removal of 1350 cc unknown) of bloody fluid. Despite continued treatment (unknown) (no (unknown) (unknown) 3. 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, high PD- (unknown) (no (unknown) (unknown) ALT 18 IU/L (<50) (units (unknown) date) 06/11/21 09:50 unknown) (unknown) (no (unknown) (unknown) AST 26 IU/L (units (u nknown) date) (17-59) 06/11/21 unknown) 09:50 (unknown) (no (unknown) (unknown) Abdomen: Soft, (units (unknown) date) NTND, BS normal, no unknown) palpable organomegaly (unknown) (no (unknown) (unknown) Additional (units (unk nown) date) studies: unknown) (unknown) (no (unknown) (unknown) Age/Sex: 70 / M (units (unknown) date) unknown) (unknown) (no (unknown) (unknown) Albumin 3.6 g/dL (units (unknown) date) (3.5-5.0) unknown) 06/11/21 09:50 (unknown) (no (unknown) (unknown) Albumin/Globulin (units (unknown) date) Ratio 1.3 unknown) (1.0-2.8) 06/11/21 09:50 (unknown) (no (unknown) (unknown) Alkaline (units (unkno wn) date) Phosphatase 167 unknown) U/L (38-126) H 06/11/21 09:50 (unknown) (no (unknown) (unknown) Allergy/AdvReac (units (unknown) date) Type Severity unknown) Reaction Status Date / Time (unknown) (no (unknown) (unknown) Antibody Screen (units (unknown) date) Negative 07/10/20 unknown) 12:55 (unknown) (no (unknown) (unknown) Assessment and (units (unknown) date) Plan unknown) (unknown) (no (unknown) (unknown) Assessment: (units (un known) date) unknown) (unknown) (no (unknown) (unknown) BUN 26 mg/dL (units ( unknown) date) (9-20) H 06/11/21 unknown) 09:50 (unknown) (no (unknown) (unknown) BUN/Creatinine (units (unknown) date) Ratio 7.0 (6-22) unknown) 06/11/21 09:50 (unknown) (no (unknown) (unknown) Baso # (Auto) 0 (units (unknown) date) /uL (0-100) unknown) 07/02/21 08:30 (unknown) (no (unknown) (unknown) Baso % (Auto) 1.0 (units (unknown) date) % (0-2) 07/02/21 unknown) 08:30 (unknown) (no (unknown) (unknown) Because of (units (unk nown) date) worsening shortness unknown) of breath, patient underwent CT of the chest (unknown) (no (unknown) (unknown) Blood Type A (units ( unknown) date) Positive 07/10/20 unknown) 12:55 (unknown) (no (unknown) (unknown) Borderline (units (unk nown) date) axillary lymph unknown) nodes noted slightly worse on the right. (unknown) (no (unknown) (unknown) CALCIUM ACETATE (units (unknown) date) (PHOSLO-) 667 mg PO unknown) QDAY #0 10/11/12 06/11/21 History (unknown) (no (unknown) (unknown) Calcium 9.1 mg/dL (units (unknown) date) (8.4-10.2) unknown) 06/11/21 09:50 (unknown) (no (unknown) (unknown) Call for any (units (u nknown) date) concerns or unknown) questions. (unknown) (no (unknown) (unknown) Carbon Dioxide 31 (units (unknown) date) mmol/L (22-32) unknown) 06/11/21 09:50 (unknown) (no (unknown) (unknown) Cardiovascular: (units (unknown) date) RRR, S1 and S2 unknown) normal, no M/G/R. (unknown) (no (unknown) (unknown) Chief Complaint: (units (unknown) date) Héctor is a 70 year unknown) old with metastatic adenocarcinoma of the lung (unknown) (no (unknown) (unknown) Chloride 96 (units (u nknown) date) mmol/L (98-107) L unknown) 06/11/21 09:50 (unknown) (no (unknown) (unknown) Creatinine 3.71 (units (unknown) date) mg/dL (0.66-1.25) unknown) H 06/11/21 09:50 (unknown) (no (unknown) (unknown) Crossmatch See (units (unknown) date) Detail 07/10/20 unknown) 12:55 (unknown) (no (unknown) (unknown) : 1950 (units (unknown) date) Acct:[id number] unknown) (unknown) (no (unknown) (unknown) Date of visit: (units (unknown) date) 07/02/21 unknown) (unknown) (no (unknown) (unknown) Miladys is a (units (un known) date) 70-year-old man unknown) with metastatic adenocarcinoma of the lung with (unknown) (no (unknown) (unknown) ECOG 1 (units (unkno wn) date) unknown) (unknown) (no (unknown) (unknown) Endoscopic (units (unk nown) date) polypectomy of unknown) large intestine (12/01/11) (unknown) (no (unknown) (unknown) Eos # (Auto) 100 (units (unknown) date) /uL (0-450) unknown) 07/02/21 08:30 (unknown) (no (unknown) (unknown) Eos % (Auto) 3.1 (units (unknown) date) % (2-4) 07/02/21 unknown) 08:30 (unknown) (no (unknown) (unknown) Estimated GFR 17 (units (unknown) date) mL/min (>60) L unknown) 06/11/21 09:50 (unknown) (no (unknown) (unknown) Exam (units (unkno wn) date) unknown) (unknown) (no (unknown) (unknown) Extremities: No LE (units (unknown) date) pitting edema. unknown) (unknown) (no (unknown) (unknown) Free T4 2.20 (units ( unknown) date) ng/dL (0.78-2.19) unknown) H 04/19/19 13:40 (unknown) (no (unknown) (unknown) Gen: WDWN, NAD, (units (unknown) date) pleasant and unknown) cooperative. (unknown) (no (unknown) (unknown) GenericComposite[P (units (unknown) date) lt Count 103 unknown) X10^3/uL (150-400) L 07/02/21 08:30 ] (unknown) (no (unknown) (unknown) GenericComposite[R (units (unknown) date) BC 3.05 X10^6/uL unknown) (4.5-5.9) L 07/02/21 08:30 ] (unknown) (no (unknown) (unknown) GenericComposite[W (units (unknown) date) BC 4.2 X10^3/uL unknown) (4.5-11.0) L 07/02/21 08:30 ] (unknown) (no (unknown) (unknown) Globulin 2.8 g/dL (units (unknown) date) (1.7-4.1) unknown) 06/11/21 09:50 (unknown) (no (unknown) (unknown) Glucose 217 mg/dL (units (unknown) date) (80-110) H unknown) 06/11/21 09:50 (unknown) (no (unknown) (unknown) HEENT: NCAT, (units ( unknown) date) EOMI, PERRLA, unknown) anicteric sclera. (unknown) (no (unknown) (unknown) Hct 30.2 % (units (un known) date) (41-53) L unknown) 07/02/21 08:30 (unknown) (no (unknown) (unknown) He came in today (units (unknown) date) accompanied by her unknown) family member. The patient is complaining (unknown) (no (unknown) (unknown) He has been on (units (unknown) date) immunotherapy with unknown) pembrolizumab since 05/23/2018. (unknown) (no (unknown) (unknown) He is status post (units (unknown) date) resection of a unknown) right frontal brain tumor in February 2018, and (unknown) (no (unknown) (unknown) Hgb 10.3 g/dL (units (unknown) date) (13.5-17.5) L unknown) 07/02/21 08:30 (unknown) (no (unknown) (unknown) History (units (unkno wn) date) unknown) (unknown) (no (unknown) (unknown) Home Medications (units (unknown) date) and Allergies unknown) (unknown) (no (unknown) (unknown) In early 2021, he (units (unknown) date) developed unknown) progressive worsening shortness of breath. He was (unknown) (no (unknown) (unknown) Injection of other (units (unknown) date) agent into spinal unknown) canal (10/19/12) (unknown) (no (unknown) (unknown) Injection of (units (u nknown) date) steroid (10/19/12) unknown) (unknown) (no (unknown) (unknown) Interval history: (units (unknown) date) unknown) (unknown) (no (unknown) (unknown) L1, positive KRAS, (units (unknown) date) and negative for unknown) EGFR/ALK/ROS-1/BRAF . (unknown) (no (unknown) (unknown) Lymph # (Auto) (units (unknown) date) 400 /uL (9550-1989) unknown) L 07/02/21 08:30 (unknown) (no (unknown) (unknown) Lymph % (Auto) (units (unknown) date) 9.3 % (25-40) L unknown) 07/02/21 08:30 (unknown) (no (unknown) (unknown) Lymphatic: no (units ( unknown) date) palpable lymph unknown) nodes in the neck, or axillae (unknown) (no (unknown) (unknown) MCH 33.6 PG (units (u nknown) date) (26-34) 07/02/21 unknown) 08:30 (unknown) (no (unknown) (unknown) MCHC 34.0 % (units (u nknown) date) (30-36) 07/02/21 unknown) 08:30 (unknown) (no (unknown) (unknown) MCV 99.0 fL (units (u nknown) date) (80-100) 07/02/21 unknown) 08:30 (unknown) (no (unknown) (unknown) [place] # (Auto) 400 (units (unknown) date) /uL (0-900) unknown) 07/02/21 08:30 (unknown) (no (unknown) (unknown) [place] % (Auto) 9.8 (units (unknown) date) % (3-14) 07/02/21 unknown) 08:30 (unknown) (no (unknown) (unknown) Narrative: (units (unk nown) date) unknown) (unknown) (no (unknown) (unknown) Neck: Supple, No (units (unknown) date) palpable unknown) thyromegaly or lymphadenopathy. (unknown) (no (unknown) (unknown) Neurological: AOx3, (units (unknown) date) CN II-XII grossly unknown) intact. No focal motor or sensory deficit. (unknown) (no (unknown) (unknown) Neut # (Auto) (units ( unknown) date) 3200 /uL unknown) (5212-0061) 07/02/21 08:30 (unknown) (no (unknown) (unknown) Neut % (Auto) (units ( unknown) date) 76.8 % (50-75) H unknown) 07/02/21 08:30 (unknown) (no (unknown) (unknown) OMEPRAZOLE 40 mg (units (unknown) date) PO BID #0 10/11/12 unknown) 06/11/21 History (unknown) (no (unknown) (unknown) Ok to proceed to (units (unknown) date) Pembolizumab today unknown) (unknown) (no (unknown) (unknown) On 04/30/2021, we (units (unknown) date) restarted unknown) pembrolizumab 200 mg iv q21d. He has tolerated well. (unknown) (no (unknown) (unknown) On 04/21/2021, (units (u nknown) date) patient underwent unknown) successful ultrasound-guided right thoracentesis (unknown) (no (unknown) (unknown) On 05/28/2021, (units ( unknown) date) patient underwent unknown) CT chest abdomen and pelvis with contrast that (unknown) (no (unknown) (unknown) Oncological (units (un known) date) History Summary: unknown) (unknown) (no (unknown) (unknown) Other endoscopy of (units (unknown) date) small intestine unknown) (12/01/11) (unknown) (no (unknown) (unknown) Other x-ray of (units (unknown) date) cervical spine unknown) (10/19/12) (unknown) (no (unknown) (unknown) Other: (units (unkno wn) date) unknown) (unknown) (no (unknown) (unknown) PN -Subjective (units (unknown) date) unknown) (unknown) (no (unknown) (unknown) Patient underwent (units (unknown) date) MRI of the brain unknown) 11/18/2020 that showed no evidence of (unknown) (no (unknown) (unknown) Patient: (units (unkno wn) date) Miladys Díaz Kristin unknown) MR#: [id number] (unknown) (no (unknown) (unknown) Penicillins (units (un known) date) Allergy Severe unknown) passed out Verified 12/09/20 07:05 (unknown) (no (unknown) (unknown) Plan: (units (unkno wn) date) unknown) (unknown) (no (unknown) (unknown) Potassium 4.2 (units (unknown) date) mmol/L (3.4-5.1) unknown) 06/11/21 09:50 (unknown) (no (unknown) (unknown) Procedures (units (unk nown) date) unknown) (unknown) (no (unknown) (unknown) Provider: (units (unkn own) date) Willy Iglesias MD unknown) (unknown) (no (unknown) (unknown) Psychiatric: (units (u nknown) date) normal affect; unknown) normal thought process. (unknown) (no (unknown) (unknown) RDW 15.2 % (units (un known) date) (11.6-14.8) H unknown) 07/02/21 08:30 (unknown) (no (unknown) (unknown) ROS1 and BRAF. The (units (unknown) date) cancer does have unknown) high PD-L1 expression. He underwent (unknown) (no (unknown) (unknown) RTC in 3 weeks for (units (unknown) date) pembrolizuamb/alimt unknown) a/avastin (unknown) (no (unknown) (unknown) Random Cortisol (units (unknown) date) 14.0 ug/dL unknown) 01/24/19 11:25 (unknown) (no (unknown) (unknown) Respiratory: (units (u nknown) date) Significantly unknown) decreased breathing sound heard over on the right (unknown) (no (unknown) (unknown) Results (units (unkno wn) date) unknown) (unknown) (no (unknown) (unknown) Rx (units (unkno wn) date) unknown) (unknown) (no (unknown) (unknown) SR Cardiovascular (units (unknown) date) issues: Shortness unknown) of breath with activity or lying flat (unknown) (no (unknown) (unknown) SR Constitution: (units (unknown) date) Fatigue/Malaise unknown) (unknown) (no (unknown) (unknown) SR Endocrine (units (u nknown) date) issues: Cold unknown) intolerance (unknown) (no (unknown) (unknown) SR (units (unkno wn) date) Gastrointestinal unknown) issues: Vomiting (unknown) (no (unknown) (unknown) SR Musculoskeletal (units (unknown) date) issues: Difficulty unknown) walking (unknown) (no (unknown) (unknown) SR Neuro issues: (units (unknown) date) Tremors or shaking, unknown) Difficulty balancing (unknown) (no (unknown) (unknown) SR Skin issues: (units (unknown) date) Skin rash or unknown) itching (unknown) (no (unknown) (unknown) SR ears, nose, (units (unknown) date) mouth, throat unknown) issues: Cough (unknown) (no (unknown) (unknown) SR eye issues: (units (unknown) date) Double vision unknown) (unknown) (no (unknown) (unknown) SR respiratory (units (unknown) date) issues: Cough, unknown) Shortness of breath, Difficulty breathing (unknown) (no (unknown) (unknown) Signed By: (units (unk nown) date) unknown) (unknown) (no (unknown) (unknown) Sodium 137 mmol/L (units (unknown) date) (137-145) unknown) 06/11/21 09:50 (unknown) (no (unknown) (unknown) TSH 4.60 uIU/mL (units (unknown) date) (0.47-4.68) unknown) 06/11/21 09:50 (unknown) (no (unknown) (unknown) Today, I reviewed (units (unknown) date) the CT of the chest unknown) abdomen pelvis with the patient. It (unknown) (no (unknown) (unknown) Total Bilirubin (units (unknown) date) 0.7 mg/dL (0.2-1.3) unknown) 06/11/21 09:50 (unknown) (no (unknown) (unknown) Total Protein 6.4 (units (unknown) date) g/dL (6.3-8.2) unknown) 06/11/21 09:50 (unknown) (no (unknown) (unknown) Treatment Summary (units (unknown) date) unknown) (unknown) (no (unknown) (unknown) VITAMIN D (Vitamin (units (unknown) date) D3) 4,000 unit PO unknown) DAILY #0 10/11/12 06/11/21 History (unknown) (no (unknown) (unknown) Vital signs: (units (u nknown) date) unknown) (unknown) (no (unknown) (unknown) Vitamin B12 1000 (units (unknown) date) mcg x1 today unknown) (unknown) (no (unknown) (unknown) Weight 79.3 kg (units (unknown) date) unknown) (unknown) (no (unknown) (unknown) [DIALYVITE] 100 mg (units (unknown) date) PO QDAY #0 10/11/12 unknown) 06/11/21 History (unknown) (no (unknown) (unknown) [Endoscopic] (units (u nknown) date) polypectomy of unknown) rectum (12/01/11) (unknown) (no (unknown) (unknown) abnormal right (units (unknown) date) axillary lymph unknown) nodes, new left upper lung nodule, and increasing (unknown) (no (unknown) (unknown) acetaminophen 325 (units (unknown) date) mg tablet 650 mg PO unknown) Q4H PRN 06/12/20 06/11/21 History (unknown) (no (unknown) (unknown) acid 0.8 mg tablet (units (unknown) date) (Kristal-Braden) unknown) (unknown) (no (unknown) (unknown) aerosol inhaler (units (unknown) date) (ProAir HFA) unknown) (unknown) (no (unknown) (unknown) albuterol sulfate (units (unknown) date) 1.25 mg/3 mL 1.25 unknown) mg (3 mL) INHALATION Q4-6H 01/08/19 06/11/21 (unknown) (no (unknown) (unknown) albuterol sulfate (units (unknown) date) 90 mcg/actuation 2 unknown) puff INHALATION Q4-6H 05/09/18 06/11/21 (unknown) (no (unknown) (unknown) as well as (units (unk nown) date) enlarged left unknown) retroperitoneal lymph node. (unknown) (no (unknown) (unknown) aspirin 81 mg (units ( unknown) date) tablet 81 mg PO unknown) DAILY 06/12/20 06/11/21 History (unknown) (no (unknown) (unknown) atorvastatin 80 mg (units (unknown) date) tablet 40 mg PO unknown) DAILY 06/12/20 06/11/21 History (unknown) (no (unknown) (unknown) base with our (units ( unknown) date) pharmacist on unknown) dosing of Alimta and Avastin in patients on (unknown) (no (unknown) (unknown) blister powder for (units (unknown) date) inhalation unknown) (unknown) (no (unknown) (unknown) brain metastasis. (units (unknown) date) His cancer is unknown) positive for KRAS, but negative for EGFR, ALK, (unknown) (no (unknown) (unknown) brinzolamide 1 (units (unknown) date) %-brimonidine 0.2 % unknown) 1 drp OPHTHALMIC (EYE) BID 06/12/20 06/11/21 (unknown) (no (unknown) (unknown) cancer here for (units (unknown) date) scheduled follow up unknown) visit. (unknown) (no (unknown) (unknown) cinnamon (units (unkno wn) date) bark-chromium 1 cap unknown) PO DAILY 09/25/20 06/11/21 History (unknown) (no (unknown) (unknown) clearly showed (units ( unknown) date) evidence of disease unknown) progression. I talked with the patient that I (unknown) (no (unknown) (unknown) codeine AdvReac (units (unknown) date) Intermediate unknown) Vomiting Verified 12/09/20 07:05 (unknown) (no (unknown) (unknown) collapse/consolida (units (unknown) date) tion within the unknown) right middle and lower lobes, new left (unknown) (no (unknown) (unknown) docusate sodium (units (unknown) date) 100 mg capsule 100 unknown) mg PO BID 06/12/20 06/11/21 History (unknown) (no (unknown) (unknown) doxycycline (units (un known) date) hyclate 100 mg unknown) capsule 100 mg PO BID #20 cap 04/17/21 06/11/21 Rx (unknown) (no (unknown) (unknown) enlarged subcarinal (units (unknown) date) lymph node and unknown) abnormal appearing right axillary lymph nodes (unknown) (no (unknown) (unknown) eye (units (unkno wn) date) drops,suspension unknown) (Simbrinza) (unknown) (no (unknown) (unknown) found to have new (units (unknown) date) right pleural unknown) effusion requiring right thoracentesis on (unknown) (no (unknown) (unknown) gabapentin 100 mg (units (unknown) date) tablet 100 mg PO unknown) BEDTIME 09/25/20 06/11/21 History (unknown) (no (unknown) (unknown) hemodialysis. I (units (unknown) date) talked with the unknown) patient briefly about the possible side effects (unknown) (no (unknown) (unknown) intermittent (units (u nknown) date) episodes of unknown) shortness of breath, but no chest pain. He denies any (unknown) (no (unknown) (unknown) ketoconazole 2 % (units (unknown) date) topical cream 1 unknown) applic TOPICAL BID 05/09/18 06/11/21 History (unknown) (no (unknown) (unknown) kidney damage (units ( unknown) date) etc.. Patient unknown) voiced understanding and is interested in the (unknown) (no (unknown) (unknown) levothyroxine 200 (units (unknown) date) mcg tablet 200 mcg unknown) PO DAILY 90 Days #1 tab 04/30/21 06/11/21 (unknown) (no (unknown) (unknown) loratadine 10 mg (units (unknown) date) capsule 10 mg PO unknown) DAILY 05/09/18 06/11/21 History (unknown) (no (unknown) (unknown) metoprolol (units (unk nown) date) tartrate 25 mg unknown) tablet 12.5 mg PO PRN PRN 06/12/20 06/11/21 History (unknown) (no (unknown) (unknown) mg capsule (units (unk nown) date) unknown) (unknown) (no (unknown) (unknown) moderate (units (unkno wn) date) centrilobular unknown) emphysema and stable chronic pericardial thickening. (unknown) (no (unknown) (unknown) morphine AdvReac (units (unknown) date) Vomiting Verified unknown) 12/09/20 07:05 (unknown) (no (unknown) (unknown) new headache. He (units (unknown) date) is experiencing unknown) fatigue. No rashes, and no diarrhea. (unknown) (no (unknown) (unknown) olanzapine 5 mg (units (unknown) date) tablet (Zyprexa) 5 unknown) mg PO QDAY #0 10/11/12 06/11/21 History (unknown) (no (unknown) (unknown) paroxetine HCl 20 (units (unknown) date) mg tablet (Paxil) unknown) 20 mg PO QDAY #0 10/11/12 06/11/21 History (unknown) (no (unknown) (unknown) picolinate-ALA 500 (units (unknown) date) mg-100 mcg-150 unknown) (unknown) (no (unknown) (unknown) pioglitazone 45 mg (units (unknown) date) tablet 45 mg PO unknown) DAILY 06/12/20 06/11/21 History (unknown) (no (unknown) (unknown) preparation for (units (unknown) date) initiation of the unknown) treatment in 3 weeks. (unknown) (no (unknown) (unknown) progression (units (un known) date) involving right unknown) pleural space, increasing subcarinal lymph node, (unknown) (no (unknown) (unknown) pulmonary nodule (units (unknown) date) and a previously unknown) visualized pulmonary nodule unchanged, (unknown) (no (unknown) (unknown) radiation to the (units (unknown) date) brain. He has been unknown) on immunotherapy with pembrolizumab since (unknown) (no (unknown) (unknown) recurrence or (units (u nknown) date) metastasis. 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 In addition it (unknown) (no (unknown) (unknown) sevelamer (units (unkn own) date) carbonate 800 mg unknown) tablet 800 mg PO DAILY #0 10/11/12 06/11/21 History (unknown) (no (unknown) (unknown) showed bilateral (units (unknown) date) solid and subsolid unknown) pulmonary nodules that have increased in (unknown) (no (unknown) (unknown) showed interval (units (unknown) date) increase of the unknown) right pleural effusion and increased (unknown) (no (unknown) (unknown) side of the lung. (units (unknown) date) Rhonchi is and unknown) crackles heard in both lungs. Mild scattered (unknown) (no (unknown) (unknown) size when compared (units (unknown) date) to the prior study unknown) from 09/09/2020. It showed mild to (unknown) (no (unknown) (unknown) solution for (units (u nknown) date) nebulization PRN unknown) #75 ml (unknown) (no (unknown) (unknown) stable. 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 (unknown) (no (unknown) (unknown) stereotactic (units (u nknown) date) radiation to the unknown) brain. (unknown) (no (unknown) (unknown) suppression, (units (u nknown) date) nausea, vomiting, unknown) immune related side effects, as well as possible (unknown) (no (unknown) (unknown) synergistic and (units (unknown) date) helpful for control unknown) of pleural fluid collection. I will touch (unknown) (no (unknown) (unknown) that Alimta is (units (unknown) date) effective in unknown) patients with adenocarcinoma, while Avastin is (unknown) (no (unknown) (unknown) that, I would (units ( unknown) date) recommend adding unknown) Alimta and Avastin. I talked with the patient (unknown) (no (unknown) (unknown) the shortness of (units (unknown) date) breath has improved unknown) significantly. (unknown) (no (unknown) (unknown) travoprost 0.004 % (units (unknown) date) eye drops 1 drp unknown) OPHTHALMIC (EYE) BEDTIME 06/12/20 06/11/21 (unknown) (no (unknown) (unknown) treatment. Today (units (unknown) date) I will give patient unknown) vitamin B12 injection 1000 mcg in (unknown) (no (unknown) (unknown) umeclidinium 62.5 (units (unknown) date) mcg/actuation 1 inh unknown) INHALATION DAILY 05/09/18 06/11/21 History (unknown) (no (unknown) (unknown) vitamin B (units (unkn own) date) complex-vitamin unknown) C-folic 1 tab DAILY 09/25/20 06/11/21 History (unknown) (no (unknown) (unknown) wheezes heard. (units (unknown) date) unknown) (unknown) (no (unknown) (unknown) with (units (unkno wn) date) pembrolizumab, unknown) repeat CT chest abdomen pelvis on 05/28/2021 showed disease (unknown) (no (unknown) (unknown) with removal of (units (unknown) date) 1350 cc of bloody unknown) fluid. After the procedure, patient said that (unknown) (no (unknown) (unknown) without contrast (units (unknown) date) on April 16, unknown) 2021. The scan showed new small to moderate Result panel 4 (unknown) (no (unknown) (unknown) (no value) (units (unk nown) date) unknown) (unknown) (no (unknown) (unknown) Date of Service: (units (unknown) date) 07/02/21 unknown) (unknown) (no (unknown) (unknown) (no value) (units (unk nown) date) unknown) (unknown) (no (unknown) (unknown) Allergies (units (unkn own) date) unknown) (unknown) (no (unknown) (unknown) Home Medications (units (unknown) date) unknown) (unknown) (no (unknown) (unknown) Intake and Output (units (unknown) date) unknown) (unknown) (no (unknown) (unknown) [facility] (units (unknown) date) [address] unknown) [place] [address] (unknown) (no (unknown) (unknown) Laboratory Last (units (unknown) date) Values unknown) (unknown) (no (unknown) (unknown) Oncology Progress (units (unknown) date) Note unknown) (unknown) (no (unknown) (unknown) Patient Weight (units (unknown) date) unknown) (unknown) (no (unknown) (unknown) (no value) (units (unk nown) date) unknown) (unknown) (no (unknown) (unknown) Weight 79.3 kg (units (unknown) date) unknown) (unknown) (no (unknown) (unknown) 07/01/21 07/02/21 (units (unknown) date) 07/02/21 unknown) (unknown) (no (unknown) (unknown) 07/02/21 (units (unkno wn) date) unknown) (unknown) (no (unknown) (unknown) 23:59 (units (unkno wn) date) unknown) (unknown) (no (unknown) (unknown) 23:59 07:59 15:59 (units (unknown) date) unknown) (unknown) (no (unknown) (unknown) Medication (units (unk nown) date) Instructions unknown) Recorded Confirmed Type (unknown) (no (unknown) (unknown) Rx (units (unkno wn) date) unknown) (unknown) (no (unknown) (unknown) am recommending we (units (unknown) date) continue the unknown) immunotherapy with pembrolizumab. On top of (unknown) (no (unknown) (unknown) and complications (units (unknown) date) of Alimta and unknown) Avastin. 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 unknown) (unknown) (no (unknown) (unknown) (Incruse Ellipta) (units (unknown) date) unknown) (unknown) (no (unknown) (unknown) (Renvela) (units (unkn own) date) unknown) (unknown) (no (unknown) (unknown) - Date of Visit (units (unknown) date) unknown) (unknown) (no (unknown) (unknown) - Imaging (units (unkn own) date) unknown) (unknown) (no (unknown) (unknown) - Labs (units (unkno wn) date) unknown) (unknown) (no (unknown) (unknown) - Patient (units (unkn own) date) Self-Reported unknown) Symptoms (unknown) (no (unknown) (unknown) [id number] (units (unkno wn) date) unknown) (unknown) (no (unknown) (unknown) 05/23/2018. (units (un known) date) unknown) (unknown) (no (unknown) (unknown) 1. 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 (unknown) (no (unknown) (unknown) 2. Stereotactic (units (unknown) date) radiation to the unknown) brain (unknown) (no (unknown) (unknown) 04/01/2021 with (units ( unknown) date) removal of 1350 cc unknown) of bloody fluid. Despite continued treatment (unknown) (no (unknown) (unknown) 3. 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, high PD- (unknown) (no (unknown) (unknown) ALT 18 IU/L (<50) (units (unknown) date) 06/11/21 09:50 unknown) (unknown) (no (unknown) (unknown) AST 26 IU/L (units (u nknown) date) (17-59) 06/11/21 unknown) 09:50 (unknown) (no (unknown) (unknown) Abdomen: Soft, (units (unknown) date) NTND, BS normal, no unknown) palpable organomegaly (unknown) (no (unknown) (unknown) Additional (units (unk nown) date) studies: unknown) (unknown) (no (unknown) (unknown) Age/Sex: 70 / M (units (unknown) date) unknown) (unknown) (no (unknown) (unknown) Albumin 3.6 g/dL (units (unknown) date) (3.5-5.0) unknown) 06/11/21 09:50 (unknown) (no (unknown) (unknown) Albumin/Globulin (units (unknown) date) Ratio 1.3 unknown) (1.0-2.8) 06/11/21 09:50 (unknown) (no (unknown) (unknown) Alkaline (units (unkno wn) date) Phosphatase 167 unknown) U/L (38-126) H 06/11/21 09:50 (unknown) (no (unknown) (unknown) Allergy/AdvReac (units (unknown) date) Type Severity unknown) Reaction Status Date / Time (unknown) (no (unknown) (unknown) Antibody Screen (units (unknown) date) Negative 07/10/20 unknown) 12:55 (unknown) (no (unknown) (unknown) Assessment and (units (unknown) date) Plan unknown) (unknown) (no (unknown) (unknown) Assessment: (units (un known) date) unknown) (unknown) (no (unknown) (unknown) BUN 26 mg/dL (units ( unknown) date) (9-20) H 06/11/21 unknown) 09:50 (unknown) (no (unknown) (unknown) BUN/Creatinine (units (unknown) date) Ratio 7.0 (6-22) unknown) 06/11/21 09:50 (unknown) (no (unknown) (unknown) Baso # (Auto) 0 (units (unknown) date) /uL (0-100) unknown) 07/02/21 08:30 (unknown) (no (unknown) (unknown) Baso % (Auto) 1.0 (units (unknown) date) % (0-2) 07/02/21 unknown) 08:30 (unknown) (no (unknown) (unknown) Because of (units (unk nown) date) worsening shortness unknown) of breath, patient underwent CT of the chest (unknown) (no (unknown) (unknown) Blood Type A (units ( unknown) date) Positive 07/10/20 unknown) 12:55 (unknown) (no (unknown) (unknown) Borderline (units (unk nown) date) axillary lymph unknown) nodes noted slightly worse on the right. (unknown) (no (unknown) (unknown) CALCIUM ACETATE (units (unknown) date) (PHOSLO-) 667 mg PO unknown) QDAY #0 10/11/12 06/11/21 History (unknown) (no (unknown) (unknown) Calcium 9.1 mg/dL (units (unknown) date) (8.4-10.2) unknown) 06/11/21 09:50 (unknown) (no (unknown) (unknown) Call for any (units (u nknown) date) concerns or unknown) questions. (unknown) (no (unknown) (unknown) Carbon Dioxide 31 (units (unknown) date) mmol/L (22-32) unknown) 06/11/21 09:50 (unknown) (no (unknown) (unknown) Cardiovascular: (units (unknown) date) RRR, S1 and S2 unknown) normal, no M/G/R. (unknown) (no (unknown) (unknown) Chief Complaint: (units (unknown) date) Don is a 70 year unknown) old with metastatic adenocarcinoma of the lung (unknown) (no (unknown) (unknown) Chloride 96 (units (u nknown) date) mmol/L (98-107) L unknown) 06/11/21 09:50 (unknown) (no (unknown) (unknown) Creatinine 3.71 (units (unknown) date) mg/dL (0.66-1.25) unknown) H 06/11/21 09:50 (unknown) (no (unknown) (unknown) Crossmatch See (units (unknown) date) Detail 07/10/20 unknown) 12:55 (unknown) (no (unknown) (unknown) : 1950 (units (unknown) date) Acct:[id number] unknown) (unknown) (no (unknown) (unknown) Date of visit: (units (unknown) date) 07/02/21 unknown) (unknown) (no (unknown) (unknown) Miladys is a (units (un known) date) 70-year-old man unknown) with metastatic adenocarcinoma of the lung with (unknown) (no (unknown) (unknown) ECOG 1 (units (unkno wn) date) unknown) (unknown) (no (unknown) (unknown) Endoscopic (units (unk nown) date) polypectomy of unknown) large intestine (12/01/11) (unknown) (no (unknown) (unknown) Eos # (Auto) 100 (units (unknown) date) /uL (0-450) unknown) 07/02/21 08:30 (unknown) (no (unknown) (unknown) Eos % (Auto) 3.1 (units (unknown) date) % (2-4) 07/02/21 unknown) 08:30 (unknown) (no (unknown) (unknown) Estimated GFR 17 (units (unknown) date) mL/min (>60) L unknown) 06/11/21 09:50 (unknown) (no (unknown) (unknown) Exam (units (unkno wn) date) unknown) (unknown) (no (unknown) (unknown) Extremities: No LE (units (unknown) date) pitting edema. unknown) (unknown) (no (unknown) (unknown) Free T4 2.20 (units ( unknown) date) ng/dL (0.78-2.19) unknown) H 04/19/19 13:40 (unknown) (no (unknown) (unknown) Gen: WDWN, NAD, (units (unknown) date) pleasant and unknown) cooperative. (unknown) (no (unknown) (unknown) GenericComposite[P (units (unknown) date) lt Count 103 unknown) X10^3/uL (150-400) L 07/02/21 08:30 ] (unknown) (no (unknown) (unknown) GenericComposite[R (units (unknown) date) BC 3.05 X10^6/uL unknown) (4.5-5.9) L 07/02/21 08:30 ] (unknown) (no (unknown) (unknown) GenericComposite[W (units (unknown) date) BC 4.2 X10^3/uL unknown) (4.5-11.0) L 07/02/21 08:30 ] (unknown) (no (unknown) (unknown) Globulin 2.8 g/dL (units (unknown) date) (1.7-4.1) unknown) 06/11/21 09:50 (unknown) (no (unknown) (unknown) Glucose 217 mg/dL (units (unknown) date) (80-110) H unknown) 06/11/21 09:50 (unknown) (no (unknown) (unknown) HEENT: NCAT, (units ( unknown) date) EOMI, PERRLA, unknown) anicteric sclera. (unknown) (no (unknown) (unknown) Hct 30.2 % (units (un known) date) (41-53) L unknown) 07/02/21 08:30 (unknown) (no (unknown) (unknown) He came in today (units (unknown) date) accompanied by her unknown) family member. The patient is complaining (unknown) (no (unknown) (unknown) He has been on (units (unknown) date) immunotherapy with unknown) pembrolizumab since 05/23/2018. (unknown) (no (unknown) (unknown) He is status post (units (unknown) date) resection of a unknown) right frontal brain tumor in February 2018, and (unknown) (no (unknown) (unknown) Hgb 10.3 g/dL (units (unknown) date) (13.5-17.5) L unknown) 07/02/21 08:30 (unknown) (no (unknown) (unknown) History (units (unkno wn) date) unknown) (unknown) (no (unknown) (unknown) Home Medications (units (unknown) date) and Allergies unknown) (unknown) (no (unknown) (unknown) In early 2021, he (units (unknown) date) developed unknown) progressive worsening shortness of breath. He was (unknown) (no (unknown) (unknown) Injection of other (units (unknown) date) agent into spinal unknown) canal (10/19/12) (unknown) (no (unknown) (unknown) Injection of (units (u nknown) date) steroid (10/19/12) unknown) (unknown) (no (unknown) (unknown) Interval history: (units (unknown) date) unknown) (unknown) (no (unknown) (unknown) L1, positive KRAS, (units (unknown) date) and negative for unknown) EGFR/ALK/ROS-1/BRAF . (unknown) (no (unknown) (unknown) Lymph # (Auto) (units (unknown) date) 400 /uL (7121-6024) unknown) L 07/02/21 08:30 (unknown) (no (unknown) (unknown) Lymph % (Auto) (units (unknown) date) 9.3 % (25-40) L unknown) 07/02/21 08:30 (unknown) (no (unknown) (unknown) Lymphatic: no (units ( unknown) date) palpable lymph unknown) nodes in the neck, or axillae (unknown) (no (unknown) (unknown) MCH 33.6 PG (units (u nknown) date) (26-34) 07/02/21 unknown) 08:30 (unknown) (no (unknown) (unknown) MCHC 34.0 % (units (u nknown) date) (30-36) 07/02/21 unknown) 08:30 (unknown) (no (unknown) (unknown) MCV 99.0 fL (units (u nknown) date) (80-100) 07/02/21 unknown) 08:30 (unknown) (no (unknown) (unknown) [place] # (Auto) 400 (units (unknown) date) /uL (0-900) unknown) 07/02/21 08:30 (unknown) (no (unknown) (unknown) [place] % (Auto) 9.8 (units (unknown) date) % (3-14) 07/02/21 unknown) 08:30 (unknown) (no (unknown) (unknown) Narrative: (units (unk nown) date) unknown) (unknown) (no (unknown) (unknown) Neck: Supple, No (units (unknown) date) palpable unknown) thyromegaly or lymphadenopathy. (unknown) (no (unknown) (unknown) Neurological: AOx3, (units (unknown) date) CN II-XII grossly unknown) intact. No focal motor or sensory deficit. (unknown) (no (unknown) (unknown) Neut # (Auto) (units ( unknown) date) 3200 /uL unknown) (4476-1080) 07/02/21 08:30 (unknown) (no (unknown) (unknown) Neut % (Auto) (units ( unknown) date) 76.8 % (50-75) H unknown) 07/02/21 08:30 (unknown) (no (unknown) (unknown) OMEPRAZOLE 40 mg (units (unknown) date) PO BID #0 10/11/12 unknown) 06/11/21 History (unknown) (no (unknown) (unknown) Ok to proceed to (units (unknown) date) Pembolizumab today unknown) (unknown) (no (unknown) (unknown) On 04/30/2021, we (units (unknown) date) restarted unknown) pembrolizumab 200 mg iv q21d. He has tolerated well. (unknown) (no (unknown) (unknown) On 04/21/2021, (units (u nknown) date) patient underwent unknown) successful ultrasound-guided right thoracentesis (unknown) (no (unknown) (unknown) On 05/28/2021, (units ( unknown) date) patient underwent unknown) CT chest abdomen and pelvis with contrast that (unknown) (no (unknown) (unknown) Oncological (units (un known) date) History Summary: unknown) (unknown) (no (unknown) (unknown) Other endoscopy of (units (unknown) date) small intestine unknown) (12/01/11) (unknown) (no (unknown) (unknown) Other x-ray of (units (unknown) date) cervical spine unknown) (10/19/12) (unknown) (no (unknown) (unknown) Other: (units (unkno wn) date) unknown) (unknown) (no (unknown) (unknown) PN -Subjective (units (unknown) date) unknown) (unknown) (no (unknown) (unknown) Patient underwent (units (unknown) date) MRI of the brain unknown) 11/18/2020 that showed no evidence of (unknown) (no (unknown) (unknown) Patient: (units (unkno wn) date) Miladys Díaz unknown) MR#: [id number] (unknown) (no (unknown) (unknown) Penicillins (units (un known) date) Allergy Severe unknown) passed out Verified 12/09/20 07:05 (unknown) (no (unknown) (unknown) Plan: (units (unkno wn) date) unknown) (unknown) (no (unknown) (unknown) Potassium 4.2 (units (unknown) date) mmol/L (3.4-5.1) unknown) 06/11/21 09:50 (unknown) (no (unknown) (unknown) Procedures (units (unk nown) date) unknown) (unknown) (no (unknown) (unknown) Provider: (units (unkn own) date) Willy Iglesias MD unknown) (unknown) (no (unknown) (unknown) Psychiatric: (units (u nknown) date) normal affect; unknown) normal thought process. (unknown) (no (unknown) (unknown) RDW 15.2 % (units (un known) date) (11.6-14.8) H unknown) 07/02/21 08:30 (unknown) (no (unknown) (unknown) ROS1 and BRAF. The (units (unknown) date) cancer does have unknown) high PD-L1 expression. He underwent (unknown) (no (unknown) (unknown) RTC in 3 weeks for (units (unknown) date) pembrolizuamb/alimt unknown) a/avastin (unknown) (no (unknown) (unknown) Random Cortisol (units (unknown) date) 14.0 ug/dL unknown) 11/27/19 11:25 (unknown) (no (unknown) (unknown) Respiratory: (units (u nknown) date) Significantly unknown) decreased breathing sound heard over on the right (unknown) (no (unknown) (unknown) Results (units (unkno wn) date) unknown) (unknown) (no (unknown) (unknown) Rx (units (unkno wn) date) unknown) (unknown) (no (unknown) (unknown) SR Cardiovascular (units (unknown) date) issues: Shortness unknown) of breath with activity or lying flat (unknown) (no (unknown) (unknown) SR Constitution: (units (unknown) date) Fatigue/Malaise unknown) (unknown) (no (unknown) (unknown) SR Endocrine (units (u nknown) date) issues: Cold unknown) intolerance (unknown) (no (unknown) (unknown) SR (units (unkno wn) date) Gastrointestinal unknown) issues: Vomiting (unknown) (no (unknown) (unknown) SR Musculoskeletal (units (unknown) date) issues: Difficulty unknown) walking (unknown) (no (unknown) (unknown) SR Neuro issues: (units (unknown) date) Tremors or shaking, unknown) Difficulty balancing (unknown) (no (unknown) (unknown) SR Skin issues: (units (unknown) date) Skin rash or unknown) itching (unknown) (no (unknown) (unknown) SR ears, nose, (units (unknown) date) mouth, throat unknown) issues: Cough (unknown) (no (unknown) (unknown) SR eye issues: (units (unknown) date) Double vision unknown) (unknown) (no (unknown) (unknown) SR respiratory (units (unknown) date) issues: Cough, unknown) Shortness of breath, Difficulty breathing (unknown) (no (unknown) (unknown) Signed By: (units (unk nown) date) unknown) (unknown) (no (unknown) (unknown) Sodium 137 mmol/L (units (unknown) date) (137-145) unknown) 06/11/21 09:50 (unknown) (no (unknown) (unknown) TSH 4.60 uIU/mL (units (unknown) date) (0.47-4.68) unknown) 06/11/21 09:50 (unknown) (no (unknown) (unknown) Today, I reviewed (units (unknown) date) the CT of the chest unknown) abdomen pelvis with the patient. It (unknown) (no (unknown) (unknown) Total Bilirubin (units (unknown) date) 0.7 mg/dL (0.2-1.3) unknown) 06/11/21 09:50 (unknown) (no (unknown) (unknown) Total Protein 6.4 (units (unknown) date) g/dL (6.3-8.2) unknown) 06/11/21 09:50 (unknown) (no (unknown) (unknown) Treatment Summary (units (unknown) date) unknown) (unknown) (no (unknown) (unknown) VITAMIN D (Vitamin (units (unknown) date) D3) 4,000 unit PO unknown) DAILY #0 10/11/12 06/11/21 History (unknown) (no (unknown) (unknown) Vital signs: (units (u nknown) date) unknown) (unknown) (no (unknown) (unknown) Vitamin B12 1000 (units (unknown) date) mcg x1 today unknown) (unknown) (no (unknown) (unknown) Weight 79.3 kg (units (unknown) date) unknown) (unknown) (no (unknown) (unknown) [DIALYVITE] 100 mg (units (unknown) date) PO QDAY #0 10/11/12 unknown) 06/11/21 History (unknown) (no (unknown) (unknown) [Endoscopic] (units (u nknown) date) polypectomy of unknown) rectum (12/01/11) (unknown) (no (unknown) (unknown) abnormal right (units (unknown) date) axillary lymph unknown) nodes, new left upper lung nodule, and increasing (unknown) (no (unknown) (unknown) acetaminophen 325 (units (unknown) date) mg tablet 650 mg PO unknown) Q4H PRN 06/12/20 06/11/21 History (unknown) (no (unknown) (unknown) acid 0.8 mg tablet (units (unknown) date) (Kristal-Braden) unknown) (unknown) (no (unknown) (unknown) aerosol inhaler (units (unknown) date) (ProAir HFA) unknown) (unknown) (no (unknown) (unknown) albuterol sulfate (units (unknown) date) 1.25 mg/3 mL 1.25 unknown) mg (3 mL) INHALATION Q4-6H 01/08/19 06/11/21 (unknown) (no (unknown) (unknown) albuterol sulfate (units (unknown) date) 90 mcg/actuation 2 unknown) puff INHALATION Q4-6H 05/09/18 06/11/21 (unknown) (no (unknown) (unknown) as well as (units (unk nown) date) enlarged left unknown) retroperitoneal lymph node. (unknown) (no (unknown) (unknown) aspirin 81 mg (units ( unknown) date) tablet 81 mg PO unknown) DAILY 06/12/20 06/11/21 History (unknown) (no (unknown) (unknown) atorvastatin 80 mg (units (unknown) date) tablet 40 mg PO unknown) DAILY 06/12/20 06/11/21 History (unknown) (no (unknown) (unknown) base with our (units ( unknown) date) pharmacist on unknown) dosing of Alimta and Avastin in patients on (unknown) (no (unknown) (unknown) blister powder for (units (unknown) date) inhalation unknown) (unknown) (no (unknown) (unknown) brain metastasis. (units (unknown) date) His cancer is unknown) positive for KRAS, but negative for EGFR, ALK, (unknown) (no (unknown) (unknown) brinzolamide 1 (units (unknown) date) %-brimonidine 0.2 % unknown) 1 drp OPHTHALMIC (EYE) BID 06/12/20 06/11/21 (unknown) (no (unknown) (unknown) cancer here for (units (unknown) date) scheduled follow up unknown) visit. (unknown) (no (unknown) (unknown) cinnamon (units (unkno wn) date) bark-chromium 1 cap unknown) PO DAILY 09/25/20 06/11/21 History (unknown) (no (unknown) (unknown) clearly showed (units ( unknown) date) evidence of disease unknown) progression. I talked with the patient that I (unknown) (no (unknown) (unknown) codeine AdvReac (units (unknown) date) Intermediate unknown) Vomiting Verified 12/09/20 07:05 (unknown) (no (unknown) (unknown) collapse/consolida (units (unknown) date) tion within the unknown) right middle and lower lobes, new left (unknown) (no (unknown) (unknown) docusate sodium (units (unknown) date) 100 mg capsule 100 unknown) mg PO BID 06/12/20 06/11/21 History (unknown) (no (unknown) (unknown) doxycycline (units (un known) date) hyclate 100 mg unknown) capsule 100 mg PO BID #20 cap 04/17/21 06/11/21 Rx (unknown) (no (unknown) (unknown) enlarged subcarinal (units (unknown) date) lymph node and unknown) abnormal appearing right axillary lymph nodes (unknown) (no (unknown) (unknown) eye (units (unkno wn) date) drops,suspension unknown) (Simbrinza) (unknown) (no (unknown) (unknown) found to have new (units (unknown) date) right pleural unknown) effusion requiring right thoracentesis on (unknown) (no (unknown) (unknown) gabapentin 100 mg (units (unknown) date) tablet 100 mg PO unknown) BEDTIME 09/25/20 06/11/21 History (unknown) (no (unknown) (unknown) hemodialysis. I (units (unknown) date) talked with the unknown) patient briefly about the possible side effects (unknown) (no (unknown) (unknown) intermittent (units (u nknown) date) episodes of unknown) shortness of breath, but no chest pain. He denies any (unknown) (no (unknown) (unknown) ketoconazole 2 % (units (unknown) date) topical cream 1 unknown) applic TOPICAL BID 05/09/18 06/11/21 History (unknown) (no (unknown) (unknown) kidney damage (units ( unknown) date) etc.. Patient unknown) voiced understanding and is interested in the (unknown) (no (unknown) (unknown) levothyroxine 200 (units (unknown) date) mcg tablet 200 mcg unknown) PO DAILY 90 Days #1 tab 04/30/21 06/11/21 (unknown) (no (unknown) (unknown) loratadine 10 mg (units (unknown) date) capsule 10 mg PO unknown) DAILY 05/09/18 06/11/21 History (unknown) (no (unknown) (unknown) metoprolol (units (unk nown) date) tartrate 25 mg unknown) tablet 12.5 mg PO PRN PRN 06/12/20 06/11/21 History (unknown) (no (unknown) (unknown) mg capsule (units (unk nown) date) unknown) (unknown) (no (unknown) (unknown) moderate (units (unkno wn) date) centrilobular unknown) emphysema and stable chronic pericardial thickening. (unknown) (no (unknown) (unknown) morphine AdvReac (units (unknown) date) Vomiting Verified unknown) 12/09/20 07:05 (unknown) (no (unknown) (unknown) new headache. He (units (unknown) date) is experiencing unknown) fatigue. No rashes, and no diarrhea. (unknown) (no (unknown) (unknown) olanzapine 5 mg (units (unknown) date) tablet (Zyprexa) 5 unknown) mg PO QDAY #0 10/11/12 06/11/21 History (unknown) (no (unknown) (unknown) paroxetine HCl 20 (units (unknown) date) mg tablet (Paxil) unknown) 20 mg PO QDAY #0 10/11/12 06/11/21 History (unknown) (no (unknown) (unknown) picolinate-ALA 500 (units (unknown) date) mg-100 mcg-150 unknown) (unknown) (no (unknown) (unknown) pioglitazone 45 mg (units (unknown) date) tablet 45 mg PO unknown) DAILY 06/12/20 06/11/21 History (unknown) (no (unknown) (unknown) preparation for (units (unknown) date) initiation of the unknown) treatment in 3 weeks. (unknown) (no (unknown) (unknown) progression (units (un known) date) involving right unknown) pleural space, increasing subcarinal lymph node, (unknown) (no (unknown) (unknown) pulmonary nodule (units (unknown) date) and a previously unknown) visualized pulmonary nodule unchanged, (unknown) (no (unknown) (unknown) radiation to the (units (unknown) date) brain. He has been unknown) on immunotherapy with pembrolizumab since (unknown) (no (unknown) (unknown) recurrence or (units (u nknown) date) metastasis. 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 In addition it (unknown) (no (unknown) (unknown) sevelamer (units (unkn own) date) carbonate 800 mg unknown) tablet 800 mg PO DAILY #0 10/11/12 06/11/21 History (unknown) (no (unknown) (unknown) showed bilateral (units (unknown) date) solid and subsolid unknown) pulmonary nodules that have increased in (unknown) (no (unknown) (unknown) showed interval (units (unknown) date) increase of the unknown) right pleural effusion and increased (unknown) (no (unknown) (unknown) side of the lung. (units (unknown) date) Rhonchi is and unknown) crackles heard in both lungs. Mild scattered (unknown) (no (unknown) (unknown) size when compared (units (unknown) date) to the prior study unknown) from 09/09/2020. It showed mild to (unknown) (no (unknown) (unknown) solution for (units (u nknown) date) nebulization PRN unknown) #75 ml (unknown) (no (unknown) (unknown) stable. 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 (unknown) (no (unknown) (unknown) stereotactic (units (u nknown) date) radiation to the unknown) brain. (unknown) (no (unknown) (unknown) suppression, (units (u nknown) date) nausea, vomiting, unknown) immune related side effects, as well as possible (unknown) (no (unknown) (unknown) synergistic and (units (unknown) date) helpful for control unknown) of pleural fluid collection. I will touch (unknown) (no (unknown) (unknown) that Alimta is (units (unknown) date) effective in unknown) patients with adenocarcinoma, while Avastin is (unknown) (no (unknown) (unknown) that, I would (units ( unknown) date) recommend adding unknown) Alimta and Avastin. I talked with the patient (unknown) (no (unknown) (unknown) the shortness of (units (unknown) date) breath has improved unknown) significantly. (unknown) (no (unknown) (unknown) travoprost 0.004 % (units (unknown) date) eye drops 1 drp unknown) OPHTHALMIC (EYE) BEDTIME 06/12/20 06/11/21 (unknown) (no (unknown) (unknown) treatment. Today (units (unknown) date) I will give patient unknown) vitamin B12 injection 1000 mcg in (unknown) (no (unknown) (unknown) umeclidinium 62.5 (units (unknown) date) mcg/actuation 1 inh unknown) INHALATION DAILY 05/09/18 06/11/21 History (unknown) (no (unknown) (unknown) vitamin B (units (unkn own) date) complex-vitamin unknown) C-folic 1 tab DAILY 09/25/20 06/11/21 History (unknown) (no (unknown) (unknown) wheezes heard. (units (unknown) date) unknown) (unknown) (no (unknown) (unknown) with (units (unkno wn) date) pembrolizumab, unknown) repeat CT chest abdomen pelvis on 05/28/2021 showed disease (unknown) (no (unknown) (unknown) with removal of (units (unknown) date) 1350 cc of bloody unknown) fluid. After the procedure, patient said that (unknown) (no (unknown) (unknown) without contrast (units (unknown) date) on April 16, unknown) 2021. The scan showed new small to moderate Result panel 5 (unknown) (no (unknown) (unknown) (no value) (units (unk nown) date) unknown) (unknown) (no (unknown) (unknown) Date of Service: (units (unknown) date) 07/02/21 unknown) (unknown) (no (unknown) (unknown) (no value) (units (unk nown) date) unknown) (unknown) (no (unknown) (unknown) Allergies (units (unkn own) date) unknown) (unknown) (no (unknown) (unknown) Home Medications (units (unknown) date) unknown) (unknown) (no (unknown) (unknown) Intake and Output (units (unknown) date) unknown) (unknown) (no (unknown) (unknown) [facility] (units (unknown) date) [address] unknown) [place] [address] (unknown) (no (unknown) (unknown) Laboratory Last (units (unknown) date) Values unknown) (unknown) (no (unknown) (unknown) Oncology Progress (units (unknown) date) Note unknown) (unknown) (no (unknown) (unknown) Patient Weight (units (unknown) date) unknown) (unknown) (no (unknown) (unknown) (no value) (units (unk nown) date) unknown) (unknown) (no (unknown) (unknown) Weight 79.3 kg (units (unknown) date) unknown) (unknown) (no (unknown) (unknown) 07/01/21 07/02/21 (units (unknown) date) 07/02/21 unknown) (unknown) (no (unknown) (unknown) 07/02/21 (units (unkno wn) date) unknown) (unknown) (no (unknown) (unknown) 23:59 (units (unkno wn) date) unknown) (unknown) (no (unknown) (unknown) 23:59 07:59 15:59 (units (unknown) date) unknown) (unknown) (no (unknown) (unknown) Medication (units (unk nown) date) Instructions unknown) Recorded Confirmed Type (unknown) (no (unknown) (unknown) Rx (units (unkno wn) date) unknown) (unknown) (no (unknown) (unknown) etc.. During the (units (unknown) date) treatment will unknown) monitoring closely. We will start the Avastin (unknown) (no (unknown) (unknown) in 3 weeks pending (units (unknown) date) approval. unknown) (unknown) (no (unknown) (unknown) will proceed with (units (unknown) date) addition of Avastin unknown) only. 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 unknown) (unknown) (no (unknown) (unknown) (Incruse Ellipta) (units (unknown) date) unknown) (unknown) (no (unknown) (unknown) (Renvela) (units (unkn own) date) unknown) (unknown) (no (unknown) (unknown) - Date of Visit (units (unknown) date) unknown) (unknown) (no (unknown) (unknown) - Imaging (units (unkn own) date) unknown) (unknown) (no (unknown) (unknown) - Labs (units (unkno wn) date) unknown) (unknown) (no (unknown) (unknown) - Patient (units (unkn own) date) Self-Reported unknown) Symptoms (unknown) (no (unknown) (unknown) [id number] (units (unkno wn) date) unknown) (unknown) (no (unknown) (unknown) 05/23/2018. (units (un known) date) unknown) (unknown) (no (unknown) (unknown) 1. 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 (unknown) (no (unknown) (unknown) 2. Stereotactic (units (unknown) date) radiation to the unknown) brain (unknown) (no (unknown) (unknown) 04/01/2021 with (units ( unknown) date) removal of 1350 cc unknown) of bloody fluid. Despite continued treatment (unknown) (no (unknown) (unknown) 3. 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, high PD- (unknown) (no (unknown) (unknown) ALT 18 IU/L (<50) (units (unknown) date) 06/11/21 09:50 unknown) (unknown) (no (unknown) (unknown) AST 26 IU/L (units (u nknown) date) (17-59) 06/11/21 unknown) 09:50 (unknown) (no (unknown) (unknown) Abdomen: Soft, (units (unknown) date) NTND, BS normal, no unknown) palpable organomegaly (unknown) (no (unknown) (unknown) Additional (units (unk nown) date) studies: unknown) (unknown) (no (unknown) (unknown) Age/Sex: 70 / M (units (unknown) date) unknown) (unknown) (no (unknown) (unknown) Albumin 3.6 g/dL (units (unknown) date) (3.5-5.0) unknown) 06/11/21 09:50 (unknown) (no (unknown) (unknown) Albumin/Globulin (units (unknown) date) Ratio 1.3 unknown) (1.0-2.8) 06/11/21 09:50 (unknown) (no (unknown) (unknown) Alkaline (units (unkno wn) date) Phosphatase 167 unknown) U/L (38-126) H 06/11/21 09:50 (unknown) (no (unknown) (unknown) Allergy/AdvReac (units (unknown) date) Type Severity unknown) Reaction Status Date / Time (unknown) (no (unknown) (unknown) Antibody Screen (units (unknown) date) Negative 07/10/20 unknown) 12:55 (unknown) (no (unknown) (unknown) Assessment and (units (unknown) date) Plan unknown) (unknown) (no (unknown) (unknown) Assessment: (units (un known) date) unknown) (unknown) (no (unknown) (unknown) BUN 26 mg/dL (units ( unknown) date) (9-20) H 06/11/21 unknown) 09:50 (unknown) (no (unknown) (unknown) BUN/Creatinine (units (unknown) date) Ratio 7.0 (6-22) unknown) 06/11/21 09:50 (unknown) (no (unknown) (unknown) Baso # (Auto) 0 (units (unknown) date) /uL (0-100) unknown) 07/02/21 08:30 (unknown) (no (unknown) (unknown) Baso % (Auto) 1.0 (units (unknown) date) % (0-2) 07/02/21 unknown) 08:30 (unknown) (no (unknown) (unknown) Because of (units (unk nown) date) worsening shortness unknown) of breath, patient underwent CT of the chest (unknown) (no (unknown) (unknown) Blood Type A (units ( unknown) date) Positive 07/10/20 unknown) 12:55 (unknown) (no (unknown) (unknown) Borderline (units (unk nown) date) axillary lymph unknown) nodes noted slightly worse on the right. (unknown) (no (unknown) (unknown) CALCIUM ACETATE (units (unknown) date) (PHOSLO-) 667 mg PO unknown) QDAY #0 10/11/12 06/11/21 History (unknown) (no (unknown) (unknown) Calcium 9.1 mg/dL (units (unknown) date) (8.4-10.2) unknown) 06/11/21 09:50 (unknown) (no (unknown) (unknown) Call for any (units (u nknown) date) concerns or unknown) questions. (unknown) (no (unknown) (unknown) Carbon Dioxide 31 (units (unknown) date) mmol/L (22-32) unknown) 06/11/21 09:50 (unknown) (no (unknown) (unknown) Cardiovascular: (units (unknown) date) RRR, S1 and S2 unknown) normal, no M/G/R. (unknown) (no (unknown) (unknown) Chief Complaint: (units (unknown) date) Héctor is a 70 year unknown) old with metastatic adenocarcinoma of the lung (unknown) (no (unknown) (unknown) Chloride 96 (units (u nknown) date) mmol/L (98-107) L unknown) 06/11/21 09:50 (unknown) (no (unknown) (unknown) Clinically, (units (un known) date) patient has been unknown) doing relatively stable. He is having some wet (unknown) (no (unknown) (unknown) Clinically, (units (un known) date) patient has unknown) remained relatively stable but has some problems with (unknown) (no (unknown) (unknown) Creatinine 3.71 (units (unknown) date) mg/dL (0.66-1.25) unknown) H 06/11/21 09:50 (unknown) (no (unknown) (unknown) Crossmatch See (units (unknown) date) Detail 07/10/20 unknown) 12:55 (unknown) (no (unknown) (unknown) : 1950 (units (unknown) date) Acct:[id number] unknown) (unknown) (no (unknown) (unknown) Date of visit: (units (unknown) date) 07/02/21 unknown) (unknown) (no (unknown) (unknown) Miladys is a (units (un known) date) 70-year-old man unknown) with metastatic adenocarcinoma of the lung with (unknown) (no (unknown) (unknown) ECOG 1 (units (unkno wn) date) unknown) (unknown) (no (unknown) (unknown) Endoscopic (units (unk nown) date) polypectomy of unknown) large intestine (12/01/11) (unknown) (no (unknown) (unknown) Eos # (Auto) 100 (units (unknown) date) /uL (0-450) unknown) 07/02/21 08:30 (unknown) (no (unknown) (unknown) Eos % (Auto) 3.1 (units (unknown) date) % (2-4) 07/02/21 unknown) 08:30 (unknown) (no (unknown) (unknown) Estimated GFR 17 (units (unknown) date) mL/min (>60) L unknown) 06/11/21 09:50 (unknown) (no (unknown) (unknown) Exam (units (unkno wn) date) unknown) (unknown) (no (unknown) (unknown) Extremities: No LE (units (unknown) date) pitting edema. unknown) (unknown) (no (unknown) (unknown) Free T4 2.20 (units ( unknown) date) ng/dL (0.78-2.19) unknown) H 04/19/19 13:40 (unknown) (no (unknown) (unknown) Gen: WDWN, NAD, (units (unknown) date) pleasant and unknown) cooperative. (unknown) (no (unknown) (unknown) GenericComposite[P (units (unknown) date) lt Count 103 unknown) X10^3/uL (150-400) L 07/02/21 08:30 ] (unknown) (no (unknown) (unknown) GenericComposite[R (units (unknown) date) BC 3.05 X10^6/uL unknown) (4.5-5.9) L 07/02/21 08:30 ] (unknown) (no (unknown) (unknown) GenericComposite[W (units (unknown) date) BC 4.2 X10^3/uL unknown) (4.5-11.0) L 07/02/21 08:30 ] (unknown) (no (unknown) (unknown) Globulin 2.8 g/dL (units (unknown) date) (1.7-4.1) unknown) 06/11/21 09:50 (unknown) (no (unknown) (unknown) Glucose 217 mg/dL (units (unknown) date) (80-110) H unknown) 06/11/21 09:50 (unknown) (no (unknown) (unknown) HEENT: NCAT, (units ( unknown) date) EOMI, PERRLA, unknown) anicteric sclera. (unknown) (no (unknown) (unknown) Hct 30.2 % (units (un known) date) (41-53) L unknown) 07/02/21 08:30 (unknown) (no (unknown) (unknown) He came in today (units (unknown) date) accompanied by her unknown) family member. The patient is complaining (unknown) (no (unknown) (unknown) He has been on (units (unknown) date) immunotherapy with unknown) pembrolizumab since 05/23/2018. (unknown) (no (unknown) (unknown) He is status post (units (unknown) date) resection of a unknown) right frontal brain tumor in February 2018, and (unknown) (no (unknown) (unknown) Hgb 10.3 g/dL (units (unknown) date) (13.5-17.5) L unknown) 07/02/21 08:30 (unknown) (no (unknown) (unknown) History (units (unkno wn) date) unknown) (unknown) (no (unknown) (unknown) Home Medications (units (unknown) date) and Allergies unknown) (unknown) (no (unknown) (unknown) In early 2021, he (units (unknown) date) developed unknown) progressive worsening shortness of breath. He was (unknown) (no (unknown) (unknown) Injection of other (units (unknown) date) agent into spinal unknown) canal (10/19/12) (unknown) (no (unknown) (unknown) Injection of (units (u nknown) date) steroid (10/19/12) unknown) (unknown) (no (unknown) (unknown) Interval history: (units (unknown) date) unknown) (unknown) (no (unknown) (unknown) It has never (units (u nknown) date) happened again. unknown) (unknown) (no (unknown) (unknown) L1, positive KRAS, (units (unknown) date) and negative for unknown) EGFR/ALK/ROS-1/BRAF . (unknown) (no (unknown) (unknown) Lymph # (Auto) (units (unknown) date) 400 /uL (3193-1532) unknown) L 07/02/21 08:30 (unknown) (no (unknown) (unknown) Lymph % (Auto) (units (unknown) date) 9.3 % (25-40) L unknown) 07/02/21 08:30 (unknown) (no (unknown) (unknown) Lymphatic: no (units ( unknown) date) palpable lymph unknown) nodes in the neck, or axillae (unknown) (no (unknown) (unknown) MCH 33.6 PG (units (u nknown) date) (26-34) 07/02/21 unknown) 08:30 (unknown) (no (unknown) (unknown) MCHC 34.0 % (units (u nknown) date) (30-36) 07/02/21 unknown) 08:30 (unknown) (no (unknown) (unknown) MCV 99.0 fL (units (u nknown) date) (80-100) 07/02/21 unknown) 08:30 (unknown) (no (unknown) (unknown) Tuesday, Tuesday, (units (unknown) date) and Tuesday. unknown) Patient reported that about 4 days ago on June 29, (unknown) (no (unknown) (unknown) [place] # (Auto) 400 (units (unknown) date) /uL (0-900) unknown) 07/02/21 08:30 (unknown) (no (unknown) (unknown) [place] % (Auto) 9.8 (units (unknown) date) % (3-14) 07/02/21 unknown) 08:30 (unknown) (no (unknown) (unknown) Narrative: (units (unk nown) date) unknown) (unknown) (no (unknown) (unknown) Neck: Supple, No (units (unknown) date) palpable unknown) thyromegaly or lymphadenopathy. (unknown) (no (unknown) (unknown) Neurological: AOx3, (units (unknown) date) CN II-XII grossly unknown) intact. No focal motor or sensory deficit. (unknown) (no (unknown) (unknown) Neut # (Auto) (units ( unknown) date) 3200 /uL unknown) ([id number]) 07/02/21 08:30 (unknown) (no (unknown) (unknown) Neut % (Auto) (units ( unknown) date) 76.8 % (50-75) H unknown) 07/02/21 08:30 (unknown) (no (unknown) (unknown) OMEPRAZOLE 40 mg (units (unknown) date) PO BID #0 10/11/12 unknown) 06/11/21 History (unknown) (no (unknown) (unknown) Ok to proceed to (units (unknown) date) Pembolizumab today unknown) (unknown) (no (unknown) (unknown) On 04/30/2021, we (units (unknown) date) restarted unknown) pembrolizumab 200 mg iv q21d. He has tolerated well. (unknown) (no (unknown) (unknown) On 04/21/2021, (units (u nknown) date) patient underwent unknown) successful ultrasound-guided right thoracentesis (unknown) (no (unknown) (unknown) On 05/28/2021, (units ( unknown) date) patient underwent unknown) CT chest abdomen and pelvis with contrast that (unknown) (no (unknown) (unknown) Oncological (units (un known) date) History Summary: unknown) (unknown) (no (unknown) (unknown) Other endoscopy of (units (unknown) date) small intestine unknown) (12/01/11) (unknown) (no (unknown) (unknown) Other x-ray of (units (unknown) date) cervical spine unknown) (10/19/12) (unknown) (no (unknown) (unknown) Other: (units (unkno wn) date) unknown) (unknown) (no (unknown) (unknown) PN -Subjective (units (unknown) date) unknown) (unknown) (no (unknown) (unknown) Patient underwent (units (unknown) date) MRI of the brain unknown) 11/18/2020 that showed no evidence of (unknown) (no (unknown) (unknown) Patient: (units (unkno wn) date) Miladys Díaz unknown) MR#: [id number] (unknown) (no (unknown) (unknown) Penicillins (units (un known) date) Allergy Severe unknown) passed out Verified 12/09/20 07:05 (unknown) (no (unknown) (unknown) Plan: (units (unkno wn) date) unknown) (unknown) (no (unknown) (unknown) Potassium 4.2 (units (unknown) date) mmol/L (3.4-5.1) unknown) 06/11/21 09:50 (unknown) (no (unknown) (unknown) Procedures (units (unk nown) date) unknown) (unknown) (no (unknown) (unknown) Provider: (units (unkn own) date) Willy Iglesias MD unknown) (unknown) (no (unknown) (unknown) Psychiatric: (units (u nknown) date) normal affect; unknown) normal thought process. (unknown) (no (unknown) (unknown) RDW 15.2 % (units (un known) date) (11.6-14.8) H unknown) 07/02/21 08:30 (unknown) (no (unknown) (unknown) RN visit only in 3 (units (unknown) date) weeks for unknown) pembrolizuamb/avast in (unknown) (no (unknown) (unknown) ROS1 and BRAF. The (units (unknown) date) cancer does have unknown) high PD-L1 expression. He underwent (unknown) (no (unknown) (unknown) RTC in 6 weeks for (units (unknown) date) follow up visit unknown) (unknown) (no (unknown) (unknown) Random Cortisol (units (unknown) date) 14.0 ug/dL unknown) 01/24/19 11:25 (unknown) (no (unknown) (unknown) Respiratory: (units (u nknown) date) Significantly unknown) decreased breathing sound heard over on the right (unknown) (no (unknown) (unknown) Results (units (unkno wn) date) unknown) (unknown) (no (unknown) (unknown) Rx (units (unkno wn) date) unknown) (unknown) (no (unknown) (unknown) SR Cardiovascular (units (unknown) date) issues: Shortness unknown) of breath with activity or lying flat (unknown) (no (unknown) (unknown) SR Constitution: (units (unknown) date) Fatigue/Malaise unknown) (unknown) (no (unknown) (unknown) SR Endocrine (units (u nknown) date) issues: Cold unknown) intolerance (unknown) (no (unknown) (unknown) SR (units (unkno wn) date) Gastrointestinal unknown) issues: Vomiting (unknown) (no (unknown) (unknown) SR Musculoskeletal (units (unknown) date) issues: Difficulty unknown) walking (unknown) (no (unknown) (unknown) SR Neuro issues: (units (unknown) date) Tremors or shaking, unknown) Difficulty balancing (unknown) (no (unknown) (unknown) SR Skin issues: (units (unknown) date) Skin rash or unknown) itching (unknown) (no (unknown) (unknown) SR ears, nose, (units (unknown) date) mouth, throat unknown) issues: Cough (unknown) (no (unknown) (unknown) SR eye issues: (units (unknown) date) Double vision unknown) (unknown) (no (unknown) (unknown) SR respiratory (units (unknown) date) issues: Cough, unknown) Shortness of breath, Difficulty breathing (unknown) (no (unknown) (unknown) Signed (units (unkno wn) date) By:<Electronically unknown) signed by Willy Iglesias MD>07/02/21 0916 (unknown) (no (unknown) (unknown) Sodium 137 mmol/L (units (unknown) date) (137-145) unknown) 06/11/21 09:50 (unknown) (no (unknown) (unknown) TSH 4.60 uIU/mL (units (unknown) date) (0.47-4.68) unknown) 06/11/21 09:50 (unknown) (no (unknown) (unknown) Total Bilirubin (units (unknown) date) 0.7 mg/dL (0.2-1.3) unknown) 06/11/21 09:50 (unknown) (no (unknown) (unknown) Total Protein 6.4 (units (unknown) date) g/dL (6.3-8.2) unknown) 06/11/21 09:50 (unknown) (no (unknown) (unknown) Treatment Summary (units (unknown) date) unknown) (unknown) (no (unknown) (unknown) VITAMIN D (Vitamin (units (unknown) date) D3) 4,000 unit PO unknown) DAILY #0 10/11/12 06/11/21 History (unknown) (no (unknown) (unknown) Vital signs: (units (u nknown) date) unknown) (unknown) (no (unknown) (unknown) Vitamin B12 1000 (units (unknown) date) mcg x1 today unknown) (unknown) (no (unknown) (unknown) Weight 79.3 kg (units (unknown) date) unknown) (unknown) (no (unknown) (unknown) [DIALYVITE] 100 mg (units (unknown) date) PO QDAY #0 10/11/12 unknown) 06/11/21 History (unknown) (no (unknown) (unknown) [Endoscopic] (units (u nknown) date) polypectomy of unknown) rectum (12/01/11) (unknown) (no (unknown) (unknown) abnormal right (units (unknown) date) axillary lymph unknown) nodes, new left upper lung nodule, and increasing (unknown) (no (unknown) (unknown) acetaminophen 325 (units (unknown) date) mg tablet 650 mg PO unknown) Q4H PRN 06/12/20 06/11/21 History (unknown) (no (unknown) (unknown) acid 0.8 mg tablet (units (unknown) date) (Kristal-Braden) unknown) (unknown) (no (unknown) (unknown) aerosol inhaler (units (unknown) date) (ProAir HFA) unknown) (unknown) (no (unknown) (unknown) albuterol sulfate (units (unknown) date) 1.25 mg/3 mL 1.25 unknown) mg (3 mL) INHALATION Q4-6H 01/08/19 06/11/21 (unknown) (no (unknown) (unknown) albuterol sulfate (units (unknown) date) 90 mcg/actuation 2 unknown) puff INHALATION Q4-6H 05/09/18 06/11/21 (unknown) (no (unknown) (unknown) as well as (units (unk nown) date) enlarged left unknown) retroperitoneal lymph node. (unknown) (no (unknown) (unknown) aspirin 81 mg (units ( unknown) date) tablet 81 mg PO unknown) DAILY 06/12/20 06/11/21 History (unknown) (no (unknown) (unknown) atorvastatin 80 mg (units (unknown) date) tablet 40 mg PO unknown) DAILY 06/12/20 06/11/21 History (unknown) (no (unknown) (unknown) blister powder for (units (unknown) date) inhalation unknown) (unknown) (no (unknown) (unknown) brain metastasis. (units (unknown) date) His cancer is unknown) positive for KRAS, but negative for EGFR, ALK, (unknown) (no (unknown) (unknown) brinzolamide 1 (units (unknown) date) %-brimonidine 0.2 % unknown) 1 drp OPHTHALMIC (EYE) BID 06/12/20 06/11/21 (unknown) (no (unknown) (unknown) cancer here for (units (unknown) date) scheduled follow up unknown) visit. (unknown) (no (unknown) (unknown) cinnamon (units (unkno wn) date) bark-chromium 1 cap unknown) PO DAILY 09/25/20 06/11/21 History (unknown) (no (unknown) (unknown) codeine AdvReac (units (unknown) date) Intermediate unknown) Vomiting Verified 12/09/20 07:05 (unknown) (no (unknown) (unknown) collapse/consolida (units (unknown) date) tion within the unknown) right middle and lower lobes, new left (unknown) (no (unknown) (unknown) cough. But no (units (unknown) date) headache. No fever unknown) and no chills. He continues on hemodialysis (unknown) (no (unknown) (unknown) docusate sodium (units (unknown) date) 100 mg capsule 100 unknown) mg PO BID 06/12/20 06/11/21 History (unknown) (no (unknown) (unknown) doxycycline (units (un known) date) hyclate 100 mg unknown) capsule 100 mg PO BID #20 cap 04/17/21 06/11/21 Rx (unknown) (no (unknown) (unknown) effects of Avastin (units (unknown) date) especially the risk unknown) of blood clot, bleeding, and hypertension (unknown) (no (unknown) (unknown) enlarged subcarinal (units (unknown) date) lymph node and unknown) abnormal appearing right axillary lymph nodes (unknown) (no (unknown) (unknown) eye (units (unkno wn) date) drops,suspension unknown) (Simbrinza) (unknown) (no (unknown) (unknown) found to have new (units (unknown) date) right pleural unknown) effusion requiring right thoracentesis on (unknown) (no (unknown) (unknown) gabapentin 100 mg (units (unknown) date) tablet 100 mg PO unknown) BEDTIME 09/25/20 06/11/21 History (unknown) (no (unknown) (unknown) guidelines, Alimta (units (unknown) date) is contraindicated unknown) in patients on hemodialysis. Therefore we (unknown) (no (unknown) (unknown) he has noticed 1 (units (unknown) date) episode of painless unknown) bleeding from the urine. It is small to (unknown) (no (unknown) (unknown) intermittent (units (u nknown) date) episodes of unknown) shortness of breath, but no chest pain. He denies any (unknown) (no (unknown) (unknown) ketoconazole 2 % (units (unknown) date) topical cream 1 unknown) applic TOPICAL BID 05/09/18 06/11/21 History (unknown) (no (unknown) (unknown) levothyroxine 200 (units (unknown) date) mcg tablet 200 mcg unknown) PO DAILY 90 Days #1 tab 04/30/21 06/11/21 (unknown) (no (unknown) (unknown) loratadine 10 mg (units (unknown) date) capsule 10 mg PO unknown) DAILY 05/09/18 06/11/21 History (unknown) (no (unknown) (unknown) metoprolol (units (unk nown) date) tartrate 25 mg unknown) tablet 12.5 mg PO PRN PRN 06/12/20 06/11/21 History (unknown) (no (unknown) (unknown) mg capsule (units (unk nown) date) unknown) (unknown) (no (unknown) (unknown) moderate amount. (units (unknown) date) It is not unknown) associated with any trauma and any pain problems. (unknown) (no (unknown) (unknown) moderate (units (unkno wn) date) centrilobular unknown) emphysema and stable chronic pericardial thickening. (unknown) (no (unknown) (unknown) morphine AdvReac (units (unknown) date) Vomiting Verified unknown) 12/09/20 07:05 (unknown) (no (unknown) (unknown) new headache. He (units (unknown) date) is experiencing unknown) fatigue. No rashes, and no diarrhea. (unknown) (no (unknown) (unknown) olanzapine 5 mg (units (unknown) date) tablet (Zyprexa) 5 unknown) mg PO QDAY #0 10/11/12 06/11/21 History (unknown) (no (unknown) (unknown) paroxetine HCl 20 (units (unknown) date) mg tablet (Paxil) unknown) 20 mg PO QDAY #0 10/11/12 06/11/21 History (unknown) (no (unknown) (unknown) picolinate-ALA 500 (units (unknown) date) mg-100 mcg-150 unknown) (unknown) (no (unknown) (unknown) pioglitazone 45 mg (units (unknown) date) tablet 45 mg PO unknown) DAILY 06/12/20 06/11/21 History (unknown) (no (unknown) (unknown) progression (units (un known) date) involving right unknown) pleural space, increasing subcarinal lymph node, (unknown) (no (unknown) (unknown) pulmonary nodule (units (unknown) date) and a previously unknown) visualized pulmonary nodule unchanged, (unknown) (no (unknown) (unknown) radiation to the (units (unknown) date) brain. He has been unknown) on immunotherapy with pembrolizumab since (unknown) (no (unknown) (unknown) recurrence or (units (u nknown) date) metastasis. 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 In addition it (unknown) (no (unknown) (unknown) sevelamer (units (unkn own) date) carbonate 800 mg unknown) tablet 800 mg PO DAILY #0 10/11/12 06/11/21 History (unknown) (no (unknown) (unknown) showed bilateral (units (unknown) date) solid and subsolid unknown) pulmonary nodules that have increased in (unknown) (no (unknown) (unknown) showed interval (units (unknown) date) increase of the unknown) right pleural effusion and increased (unknown) (no (unknown) (unknown) side of the lung. (units (unknown) date) Rhonchi is and unknown) crackles heard in both lungs. Mild scattered (unknown) (no (unknown) (unknown) size when compared (units (unknown) date) to the prior study unknown) from 09/09/2020. It showed mild to (unknown) (no (unknown) (unknown) solution for (units (u nknown) date) nebulization PRN unknown) #75 ml (unknown) (no (unknown) (unknown) stable. 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 (unknown) (no (unknown) (unknown) stereotactic (units (u nknown) date) radiation to the unknown) brain. (unknown) (no (unknown) (unknown) the shortness of (units (unknown) date) breath has improved unknown) significantly. (unknown) (no (unknown) (unknown) travoprost 0.004 % (units (unknown) date) eye drops 1 drp unknown) OPHTHALMIC (EYE) BEDTIME 06/12/20 06/11/21 (unknown) (no (unknown) (unknown) umeclidinium 62.5 (units (unknown) date) mcg/actuation 1 inh unknown) INHALATION DAILY 05/09/18 06/11/21 History (unknown) (no (unknown) (unknown) vitamin B (units (unkn own) date) complex-vitamin unknown) C-folic 1 tab DAILY 09/25/20 06/11/21 History (unknown) (no (unknown) (unknown) wet cough. Today (units (unknown) date) I talked with the unknown) patient that upon reviewing of the (unknown) (no (unknown) (unknown) wheezes heard. (units (unknown) date) unknown) (unknown) (no (unknown) (unknown) with (units (unkno wn) date) pembrolizumab, unknown) repeat CT chest abdomen pelvis on 05/28/2021 showed disease (unknown) (no (unknown) (unknown) with removal of (units (unknown) date) 1350 cc of bloody unknown) fluid. After the procedure, patient said that (unknown) (no (unknown) (unknown) without contrast (units (unknown) date) on April 16, unknown) 2021. The scan showed new small to moderate Result panel 6 (unknown) (no date) (unknown) (unknown) 7.04 uIU/mL (unkn own) Result panel 7 (unknown) (no date) (unknown) (unknown) 1.2 % (unkn own) (unknown) (no date) (unknown) (unknown) 10.2 g/dL (unkn own) (unknown) (no date) (unknown) (unknown) 10.7 % (unkn own) (unknown) (no date) (unknown) (unknown) 100 /uL (unkn own) (unknown) (no date) (unknown) (unknown) 100 /uL (unkn own) (unknown) (no date) (unknown) (unknown) 15.0 % (unkn own) (unknown) (no date) (unknown) (unknown) 2.7 % (unkn own) (unknown) (no date) (unknown) (unknown) 3.07 X10 6/uL (unkn own) (unknown) (no date) (unknown) (unknown) 30.5 % (unkn own) (unknown) (no date) (unknown) (unknown) 300 /uL (unkn own) (unknown) (no date) (unknown) (unknown) 33.2 PG (unkn own) (unknown) (no date) (unknown) (unknown) 33.5 % (unkn own) (unknown) (no date) (unknown) (unknown) 3500 /uL (unkn own) (unknown) (no date) (unknown) (unknown) 4.5 X10 3/uL (unkn own) (unknown) (no date) (unknown) (unknown) 500 /uL (unkn own) (unknown) (no date) (unknown) (unknown) 7.2 % (unkn own) (unknown) (no date) (unknown) (unknown) 78.2 % (unkn own) (unknown) (no date) (unknown) (unknown) 97 X10 3/uL (unkn own) (unknown) (no date) (unknown) (unknown) 99.3 fL (unkn own) Result panel 8 (unknown) (no date) (unknown) (unknown) 0.8 mg/dL (unkn own) (unknown) (no date) (unknown) (unknown) 1.4 (units unknown) (unknown) (unknown) (no date) (unknown) (unknown) 134 mmol/L (unkn own) (unknown) (no date) (unknown) (unknown) 16 mL/min (unkn own) (unknown) (no date) (unknown) (unknown) 19 IU/L (unkn own) (unknown) (no date) (unknown) (unknown) 2.8 g/dL (unkn own) (unknown) (no date) (unknown) (unknown) 209 mg/dL (unkn own) (unknown) (no date) (unknown) (unknown) 239 U/L (unkn own) (unknown) (no date) (unknown) (unknown) 3.8 g/dL (unkn own) (unknown) (no date) (unknown) (unknown) 3.83 mg/dL (unkn own) (unknown) (no date) (unknown) (unknown) 3.9 mmol/L (unkn own) (unknown) (no date) (unknown) (unknown) 31 IU/L (unkn own) (unknown) (no date) (unknown) (unknown) 32 mmol/L (unkn own) (unknown) (no date) (unknown) (unknown) 38 mg/dL (unkn own) (unknown) (no date) (unknown) (unknown) 6.6 g/dL (unkn own) (unknown) (no date) (unknown) (unknown) 9.6 mg/dL (unkn own) (unknown) (no date) (unknown) (unknown) 9.9 (units unknown) (unknown) (unknown) (no date) (unknown) (unknown) 94 mmol/L (unkn own) Result panel 9 (unknown) (no date) (unknown) (unknown) 2.82 uIU/mL (unkn own) Result panel 10 (unknown) (no date) (unknown) (unknown) 1.2 % (unkn own) (unknown) (no date) (unknown) (unknown) 100 /uL (unkn own) (unknown) (no date) (unknown) (unknown) 100 /uL (unkn own) (unknown) (no date) (unknown) (unknown) 101 X10 3/uL (unkn own) (unknown) (no date) (unknown) (unknown) 11.4 g/dL (unkn own) (unknown) (no date) (unknown) (unknown) 15.4 % (unkn own) (unknown) (no date) (unknown) (unknown) 2.7 % (unkn own) (unknown) (no date) (unknown) (unknown) 3.40 X10 6/uL (unkn own) (unknown) (no date) (unknown) (unknown) 33.2 % (unkn own) (unknown) (no date) (unknown) (unknown) 33.5 PG (unkn own) (unknown) (no date) (unknown) (unknown) 34.3 % (unkn own) (unknown) (no date) (unknown) (unknown) 400 /uL (unkn own) (unknown) (no date) (unknown) (unknown) 4200 /uL (unkn own) (unknown) (no date) (unknown) (unknown) 5.3 X10 3/uL (unkn own) (unknown) (no date) (unknown) (unknown) 500 /uL (unkn own) (unknown) (no date) (unknown) (unknown) 7.7 % (unkn own) (unknown) (no date) (unknown) (unknown) 79.6 % (unkn own) (unknown) (no date) (unknown) (unknown) 8.8 % (unkn own) (unknown) (no date) (unknown) (unknown) 97.6 fL (unkn own) Result panel 11 (unknown) (no date) (unknown) (unknown) 0.9 mg/dL (unkn own) (unknown) (no date) (unknown) (unknown) 1.4 (units unknown) (unknown) (unknown) (no date) (unknown) (unknown) 135 mmol/L (unkn own) (unknown) (no date) (unknown) (unknown) 154 mg/dL (unkn own) (unknown) (no date) (unknown) (unknown) 19 IU/L (unkn own) (unknown) (no date) (unknown) (unknown) 19 mL/min (unkn own) (unknown) (no date) (unknown) (unknown) 2.8 g/dL (unkn own) (unknown) (no date) (unknown) (unknown) 268 U/L (unkn own) (unknown) (no date) (unknown) (unknown) 27 mg/dL (unkn own) (unknown) (no date) (unknown) (unknown) 3.41 mg/dL (unkn own) (unknown) (no date) (unknown) (unknown) 3.8 g/dL (unkn own) (unknown) (no date) (unknown) (unknown) 3.9 mmol/L (unkn own) (unknown) (no date) (unknown) (unknown) 33 IU/L (unkn own) (unknown) (no date) (unknown) (unknown) 33 mmol/L (unkn own) (unknown) (no date) (unknown) (unknown) 6.6 g/dL (unkn own) (unknown) (no date) (unknown) (unknown) 7.9 (units unknown) (unknown) (unknown) (no date) (unknown) (unknown) 9.1 mg/dL (unkn own) (unknown) (no date) (unknown) (unknown) 92 mmol/L (unkn own) Result panel 12 (unknown) (no (unknown) (unknown) (no value) (units (unk nown) date) unknown) (unknown) (no (unknown) (unknown) Date of Service: (units (unknown) date) 08/13/21 unknown) (unknown) (no (unknown) (unknown) (no value) (units (unk nown) date) unknown) (unknown) (no (unknown) (unknown) Allergies (units (unkn own) date) unknown) (unknown) (no (unknown) (unknown) Home Medications (units (unknown) date) unknown) (unknown) (no (unknown) (unknown) Intake and Output (units (unknown) date) unknown) (unknown) (no (unknown) (unknown) [facility] (units (unknown) date) [address] unknown) [place] [address] (unknown) (no (unknown) (unknown) Laboratory Last (units (unknown) date) Values unknown) (unknown) (no (unknown) (unknown) Oncology Progress (units (unknown) date) Note unknown) (unknown) (no (unknown) (unknown) Patient Weight (units (unknown) date) unknown) (unknown) (no (unknown) (unknown) Vital Signs (units (un known) date) unknown) (unknown) (no (unknown) (unknown) (no value) (units (unk nown) date) unknown) (unknown) (no (unknown) (unknown) Temp Pulse Resp BP (units (unknown) date) Pulse Ox unknown) (unknown) (no (unknown) (unknown) Weight 80.5 kg (units (unknown) date) unknown) (unknown) (no (unknown) (unknown) 08/12/21 08/13/21 (units (unknown) date) 08/13/21 unknown) (unknown) (no (unknown) (unknown) 08/13/21 (units (unkno wn) date) unknown) (unknown) (no (unknown) (unknown) 08/13/21 09:18 98 (units (unknown) date) F 65 18 166/82 H unknown) 97 (unknown) (no (unknown) (unknown) 23:59 (units (unkno wn) date) unknown) (unknown) (no (unknown) (unknown) 23:59 07:59 15:59 (units (unknown) date) unknown) (unknown) (no (unknown) (unknown) Medication (units (unk nown) date) Instructions unknown) Recorded Confirmed Type (unknown) (no (unknown) (unknown) Rx (units (unkno wn) date) unknown) (unknown) (no (unknown) (unknown) etc.. During the (units (unknown) date) treatment will unknown) monitoring closely. We will start the Avastin (unknown) (no (unknown) (unknown) in 3 weeks pending (units (unknown) date) approval. unknown) (unknown) (no (unknown) (unknown) will proceed with (units (unknown) date) addition of Avastin unknown) only. 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 unknown) (unknown) (no (unknown) (unknown) (Incruse Ellipta) (units (unknown) date) unknown) (unknown) (no (unknown) (unknown) (Renvela) (units (unkn own) date) unknown) (unknown) (no (unknown) (unknown) - Date of Visit (units (unknown) date) unknown) (unknown) (no (unknown) (unknown) - Imaging (units (unkn own) date) unknown) (unknown) (no (unknown) (unknown) - Labs (units (unkno wn) date) unknown) (unknown) (no (unknown) (unknown) - Patient (units (unkn own) date) Self-Reported unknown) Symptoms (unknown) (no (unknown) (unknown) [id number] (units (unkno wn) date) unknown) (unknown) (no (unknown) (unknown) 05/23/2018. (units (un known) date) unknown) (unknown) (no (unknown) (unknown) 06/11/21 History (units (unknown) date) unknown) (unknown) (no (unknown) (unknown) 1. 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 (unknown) (no (unknown) (unknown) 2. Stereotactic (units (unknown) date) radiation to the unknown) brain (unknown) (no (unknown) (unknown) 04/01/2021 with (units ( unknown) date) removal of 1350 cc unknown) of bloody fluid. Despite continued treatment (unknown) (no (unknown) (unknown) 3. 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, high PD- (unknown) (no (unknown) (unknown) ALT 19 IU/L (<50) (units (unknown) date) 07/23/21 10:25 unknown) (unknown) (no (unknown) (unknown) AST 31 IU/L (units (u nknown) date) (17-59) 07/23/21 unknown) 10:25 (unknown) (no (unknown) (unknown) Abdomen: Soft, (units (unknown) date) NTND, BS normal, no unknown) palpable organomegaly (unknown) (no (unknown) (unknown) Additional (units (unk nown) date) studies: unknown) (unknown) (no (unknown) (unknown) Age/Sex: 70 / M (units (unknown) date) unknown) (unknown) (no (unknown) (unknown) Albumin 3.8 g/dL (units (unknown) date) (3.5-5.0) unknown) 07/23/21 10:25 (unknown) (no (unknown) (unknown) Albumin/Globulin (units (unknown) date) Ratio 1.4 unknown) (1.0-2.8) 07/23/21 10:25 (unknown) (no (unknown) (unknown) Alkaline (units (unkno wn) date) Phosphatase 239 unknown) U/L (38-126) H 07/23/21 10:25 (unknown) (no (unknown) (unknown) Allergy/AdvReac (units (unknown) date) Type Severity unknown) Reaction Status Date / Time (unknown) (no (unknown) (unknown) Antibody Screen (units (unknown) date) Negative 07/10/20 unknown) 12:55 (unknown) (no (unknown) (unknown) Assessment and (units (unknown) date) Plan unknown) (unknown) (no (unknown) (unknown) Assessment: (units (un known) date) unknown) (unknown) (no (unknown) (unknown) BUN 38 mg/dL (units ( unknown) date) (9-20) H 07/23/21 unknown) 10:25 (unknown) (no (unknown) (unknown) BUN/Creatinine (units (unknown) date) Ratio 9.9 (6-22) unknown) 07/23/21 10:25 (unknown) (no (unknown) (unknown) Baso # (Auto) 100 (units (unknown) date) /uL (0-100) unknown) 08/13/21 08:50 (unknown) (no (unknown) (unknown) Baso % (Auto) 1.2 (units (unknown) date) % (0-2) 08/13/21 unknown) 08:50 (unknown) (no (unknown) (unknown) Because of (units (unk nown) date) worsening shortness unknown) of breath, patient underwent CT of the chest (unknown) (no (unknown) (unknown) Blood Type A (units ( unknown) date) Positive 07/10/20 unknown) 12:55 (unknown) (no (unknown) (unknown) Borderline (units (unk nown) date) axillary lymph unknown) nodes noted slightly worse on the right. (unknown) (no (unknown) (unknown) CALCIUM ACETATE (units (unknown) date) (PHOSLO-) 667 mg PO unknown) QDAY ##0 10/11/12 06/11/21 History (unknown) (no (unknown) (unknown) Calcium 9.6 mg/dL (units (unknown) date) (8.4-10.2) unknown) 07/23/21 10:25 (unknown) (no (unknown) (unknown) Call for any (units (u nknown) date) concerns or unknown) questions. (unknown) (no (unknown) (unknown) Carbon Dioxide 32 (units (unknown) date) mmol/L (22-32) unknown) 07/23/21 10:25 (unknown) (no (unknown) (unknown) Cardiovascular: (units (unknown) date) RRR, S1 and S2 unknown) normal, no M/G/R. (unknown) (no (unknown) (unknown) Chief Complaint: (units (unknown) date) Héctor is a 70 year unknown) old with metastatic adenocarcinoma of the lung (unknown) (no (unknown) (unknown) Chloride 94 (units (u nknown) date) mmol/L (98-107) L unknown) 07/23/21 10:25 (unknown) (no (unknown) (unknown) Clinically, (units (un known) date) patient has been unknown) doing relatively stable. He is having some wet (unknown) (no (unknown) (unknown) Clinically, (units (un known) date) patient has unknown) remained relatively stable but has some problems with (unknown) (no (unknown) (unknown) Creatinine 3.83 (units (unknown) date) mg/dL (0.66-1.25) unknown) H 07/23/21 10:25 (unknown) (no (unknown) (unknown) Crossmatch See (units (unknown) date) Detail 07/10/20 unknown) 12:55 (unknown) (no (unknown) (unknown) : 1950 (units (unknown) date) Acct:[id number] unknown) (unknown) (no (unknown) (unknown) Date of visit: (units (unknown) date) 08/13/21 unknown) (unknown) (no (unknown) (unknown) Miladys is a (units (un known) date) 70-year-old man unknown) with metastatic adenocarcinoma of the lung with (unknown) (no (unknown) (unknown) ECOG 1 (units (unkno wn) date) unknown) (unknown) (no (unknown) (unknown) Endoscopic (units (unk nown) date) polypectomy of unknown) large intestine (12/01/11) (unknown) (no (unknown) (unknown) Eos # (Auto) 100 (units (unknown) date) /uL (0-450) unknown) 08/13/21 08:50 (unknown) (no (unknown) (unknown) Eos % (Auto) 2.7 (units (unknown) date) % (2-4) 08/13/21 unknown) 08:50 (unknown) (no (unknown) (unknown) Estimated GFR 16 (units (unknown) date) mL/min (>60) L unknown) 07/23/21 10:25 (unknown) (no (unknown) (unknown) Exam (units (unkno wn) date) unknown) (unknown) (no (unknown) (unknown) Extremities: No LE (units (unknown) date) pitting edema. unknown) (unknown) (no (unknown) (unknown) Free T4 2.20 (units ( unknown) date) ng/dL (0.78-2.19) unknown) H 04/19/19 13:40 (unknown) (no (unknown) (unknown) Gen: WDWN, NAD, (units (unknown) date) pleasant and unknown) cooperative. (unknown) (no (unknown) (unknown) GenericComposite[P (units (unknown) date) lt Count 101 unknown) X10^3/uL (150-400) L 08/13/21 08:50 ] (unknown) (no (unknown) (unknown) GenericComposite[R (units (unknown) date) BC 3.40 X10^6/uL unknown) (4.5-5.9) L 08/13/21 08:50 ] (unknown) (no (unknown) (unknown) GenericComposite[W (units (unknown) date) BC 5.3 X10^3/uL unknown) (4.5-11.0) 08/13/21 08:50 ] (unknown) (no (unknown) (unknown) Globulin 2.8 g/dL (units (unknown) date) (1.7-4.1) unknown) 07/23/21 10:25 (unknown) (no (unknown) (unknown) Glucose 209 mg/dL (units (unknown) date) (80-110) H unknown) 07/23/21 10:25 (unknown) (no (unknown) (unknown) HEENT: NCAT, (units ( unknown) date) EOMI, PERRLA, unknown) anicteric sclera. (unknown) (no (unknown) (unknown) Hct 33.2 % (units (un known) date) (41-53) L unknown) 08/13/21 08:50 (unknown) (no (unknown) (unknown) He came in today (units (unknown) date) accompanied by her unknown) family member. The patient is complaining (unknown) (no (unknown) (unknown) He has been on (units (unknown) date) immunotherapy with unknown) pembrolizumab since 05/23/2018. 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 He was (unknown) (no (unknown) (unknown) Injection of other (units (unknown) date) agent into spinal unknown) canal (10/19/12) (unknown) (no (unknown) (unknown) Injection of (units (u nknown) date) steroid (10/19/12) unknown) (unknown) (no (unknown) (unknown) Interval history: (units (unknown) date) unknown) (unknown) (no (unknown) (unknown) It has never (units (u nknown) date) happened again. unknown) (unknown) (no (unknown) (unknown) L1, positive KRAS, (units (unknown) date) and negative for unknown) EGFR/ALK/ROS-1/BRAF . (unknown) (no (unknown) (unknown) Lymph # (Auto) (units (unknown) date) 400 /uL (7890-4572) unknown) L 08/13/21 08:50 (unknown) (no (unknown) (unknown) Lymph % (Auto) (units (unknown) date) 7.7 % (25-40) L unknown) 08/13/21 08:50 (unknown) (no (unknown) (unknown) Lymphatic: no (units ( unknown) date) palpable lymph unknown) nodes in the neck, or axillae (unknown) (no (unknown) (unknown) MCH 33.5 PG (units (u nknown) date) (26-34) 08/13/21 unknown) 08:50 (unknown) (no (unknown) (unknown) MCHC 34.3 % (units (u nknown) date) (30-36) 08/13/21 unknown) 08:50 (unknown) (no (unknown) (unknown) MCV 97.6 fL (units (u nknown) date) (80-100) 08/13/21 unknown) 08:50 (unknown) (no (unknown) (unknown) Tuesday, Tuesday, (units (unknown) date) and Tuesday. unknown) Patient reported that about 4 days ago on June 29, (unknown) (no (unknown) (unknown) [place] # (Auto) 500 (units (unknown) date) /uL (0-900) unknown) 08/13/21 08:50 (unknown) (no (unknown) (unknown) [place] % (Auto) 8.8 (units (unknown) date) % (3-14) 08/13/21 unknown) 08:50 (unknown) (no (unknown) (unknown) Narrative: (units (unk nown) date) unknown) (unknown) (no (unknown) (unknown) Neck: Supple, No (units (unknown) date) palpable unknown) thyromegaly or lymphadenopathy. (unknown) (no (unknown) (unknown) Neurological: AOx3, (units (unknown) date) CN II-XII grossly unknown) intact. No focal motor or sensory deficit. (unknown) (no (unknown) (unknown) Neut # (Auto) (units ( unknown) date) 4200 /uL unknown) (3932-0388) 08/13/21 08:50 (unknown) (no (unknown) (unknown) Neut % (Auto) (units ( unknown) date) 79.6 % (50-75) H unknown) 08/13/21 08:50 (unknown) (no (unknown) (unknown) OMEPRAZOLE 40 mg (units (unknown) date) PO BID ##0 10/11/12 unknown) 06/11/21 History (unknown) (no (unknown) (unknown) Ok to proceed to (units (unknown) date) Pembolizumab today unknown) (unknown) (no (unknown) (unknown) On 04/30/2021, we (units (unknown) date) restarted unknown) pembrolizumab 200 mg iv q21d. He has tolerated well. (unknown) (no (unknown) (unknown) On 04/21/2021, (units (u nknown) date) patient underwent unknown) successful ultrasound-guided right thoracentesis (unknown) (no (unknown) (unknown) On 05/28/2021, (units ( unknown) date) patient underwent unknown) CT chest abdomen and pelvis with contrast that (unknown) (no (unknown) (unknown) Oncological (units (un known) date) History Summary: unknown) (unknown) (no (unknown) (unknown) Other endoscopy of (units (unknown) date) small intestine unknown) (12/01/11) (unknown) (no (unknown) (unknown) Other x-ray of (units (unknown) date) cervical spine unknown) (10/19/12) (unknown) (no (unknown) (unknown) Other: (units (unkno wn) date) unknown) (unknown) (no (unknown) (unknown) PN -Subjective (units (unknown) date) unknown) (unknown) (no (unknown) (unknown) Patient underwent (units (unknown) date) MRI of the brain unknown) 11/18/2020 that showed no evidence of (unknown) (no (unknown) (unknown) Patient: (units (unkno wn) date) Miladys Díaz unknown) MR#: [id number] (unknown) (no (unknown) (unknown) Penicillins (units (un known) date) Allergy Severe unknown) passed out Verified 12/09/20 07:05 (unknown) (no (unknown) (unknown) Plan: (units (unkno wn) date) unknown) (unknown) (no (unknown) (unknown) Potassium 3.9 (units (unknown) date) mmol/L (3.4-5.1) unknown) 07/23/21 10:25 (unknown) (no (unknown) (unknown) Procedures (units (unk nown) date) unknown) (unknown) (no (unknown) (unknown) Provider: (units (unkn own) date) Willy Iglesias MD unknown) (unknown) (no (unknown) (unknown) Psychiatric: (units (u nknown) date) normal affect; unknown) normal thought process. (unknown) (no (unknown) (unknown) RDW 15.4 % (units (un known) date) (11.6-14.8) H unknown) 08/13/21 08:50 (unknown) (no (unknown) (unknown) RN visit only in 3 (units (unknown) date) weeks for unknown) pembrolizuamb/avast in (unknown) (no (unknown) (unknown) ROS1 and BRAF. The (units (unknown) date) cancer does have unknown) high PD-L1 expression. He underwent (unknown) (no (unknown) (unknown) RTC in 6 weeks for (units (unknown) date) follow up visit unknown) (unknown) (no (unknown) (unknown) Random Cortisol (units (unknown) date) 14.0 ug/dL unknown) 01/24/19 11:25 (unknown) (no (unknown) (unknown) Respiratory: (units (u nknown) date) Significantly unknown) decreased breathing sound heard over on the right (unknown) (no (unknown) (unknown) Results (units (unkno wn) date) unknown) (unknown) (no (unknown) (unknown) Rx (units (unkno wn) date) unknown) (unknown) (no (unknown) (unknown) SR Cardiovascular (units (unknown) date) issues: Shortness unknown) of breath with activity or lying flat (unknown) (no (unknown) (unknown) SR Constitution: (units (unknown) date) Fatigue/Malaise unknown) (unknown) (no (unknown) (unknown) SR Endocrine (units (u nknown) date) issues: Cold unknown) intolerance (unknown) (no (unknown) (unknown) SR (units (unkno wn) date) Gastrointestinal unknown) issues: Vomiting (unknown) (no (unknown) (unknown) SR Musculoskeletal (units (unknown) date) issues: Muscle unknown) weakness (unknown) (no (unknown) (unknown) SR Neuro issues: (units (unknown) date) Headache, Tremors unknown) or shaking (unknown) (no (unknown) (unknown) SR Skin issues: (units (unknown) date) Skin rash or unknown) itching (unknown) (no (unknown) (unknown) SR ears, nose, (units (unknown) date) mouth, throat unknown) issues: Cough (unknown) (no (unknown) (unknown) SR eye issues: (units (unknown) date) Vision changes unknown) (unknown) (no (unknown) (unknown) SR respiratory (units (unknown) date) issues: Cough, unknown) Shortness of breath (unknown) (no (unknown) (unknown) Signed By: (units (unk nown) date) unknown) (unknown) (no (unknown) (unknown) Sodium 134 mmol/L (units (unknown) date) (137-145) L unknown) 07/23/21 10:25 (unknown) (no (unknown) (unknown) TSH 2.82 uIU/mL (units (unknown) date) (0.47-4.68) unknown) 07/23/21 10:25 (unknown) (no (unknown) (unknown) Total Bilirubin (units (unknown) date) 0.8 mg/dL (0.2-1.3) unknown) 07/23/21 10:25 (unknown) (no (unknown) (unknown) Total Protein 6.6 (units (unknown) date) g/dL (6.3-8.2) unknown) 07/23/21 10:25 (unknown) (no (unknown) (unknown) Treatment Summary (units (unknown) date) unknown) (unknown) (no (unknown) (unknown) VITAMIN D (Vitamin (units (unknown) date) D3) 4,000 unit PO unknown) DAILY ##0 10/11/12 06/11/21 History (unknown) (no (unknown) (unknown) Vital signs: (units (u nknown) date) unknown) (unknown) (no (unknown) (unknown) Vitamin B12 1000 (units (unknown) date) mcg x1 today unknown) (unknown) (no (unknown) (unknown) Weight 80.5 kg (units (unknown) date) unknown) (unknown) (no (unknown) (unknown) [DIALYVITE] 100 mg (units (unknown) date) PO QDAY ##0 unknown) 10/11/12 06/11/21 History (unknown) (no (unknown) (unknown) [Endoscopic] (units (u nknown) date) polypectomy of unknown) rectum (12/01/11) (unknown) (no (unknown) (unknown) abnormal right (units (unknown) date) axillary lymph unknown) nodes, new left upper lung nodule, and increasing (unknown) (no (unknown) (unknown) acetaminophen 325 (units (unknown) date) mg tablet 650 mg PO unknown) Q4H PRN Pain, Moderate 06/12/20 06/11/21 (unknown) (no (unknown) (unknown) acid 0.8 mg tablet (units (unknown) date) (Kristal-Braden) unknown) (unknown) (no (unknown) (unknown) aerosol inhaler (units (unknown) date) (ProAir HFA) unknown) (unknown) (no (unknown) (unknown) albuterol sulfate (units (unknown) date) 1.25 mg/3 mL 1.25 unknown) mg (3 mL) inhalation Q4-6H 01/08/19 06/11/21 (unknown) (no (unknown) (unknown) albuterol sulfate (units (unknown) date) 90 mcg/actuation 2 unknown) puff inhalation Q4-6H 05/09/18 06/11/21 (unknown) (no (unknown) (unknown) as well as (units (unk nown) date) enlarged left unknown) retroperitoneal lymph node. (unknown) (no (unknown) (unknown) aspirin 81 mg (units ( unknown) date) tablet 81 mg PO unknown) DAILY 06/12/20 06/11/21 History (unknown) (no (unknown) (unknown) atorvastatin 80 mg (units (unknown) date) tablet 40 mg PO unknown) DAILY 06/12/20 06/11/21 History (unknown) (no (unknown) (unknown) blister powder for (units (unknown) date) inhalation unknown) (unknown) (no (unknown) (unknown) brain metastasis. (units (unknown) date) His cancer is unknown) positive for KRAS, but negative for EGFR, ALK, (unknown) (no (unknown) (unknown) brinzolamide 1 (units (unknown) date) %-brimonidine 0.2 % unknown) 1 drp ophthalmic (eye) BID 06/12/20 06/11/21 (unknown) (no (unknown) (unknown) cancer here for (units (unknown) date) scheduled follow up unknown) visit. (unknown) (no (unknown) (unknown) cinnamon (units (unkno wn) date) bark-chromium 1 cap unknown) PO DAILY 09/25/20 06/11/21 History (unknown) (no (unknown) (unknown) codeine AdvReac (units (unknown) date) Intermediate unknown) Vomiting Verified 12/09/20 07:05 (unknown) (no (unknown) (unknown) collapse/consolida (units (unknown) date) tion within the unknown) right middle and lower lobes, new left (unknown) (no (unknown) (unknown) cough. But no (units (unknown) date) headache. No fever unknown) and no chills. He continues on hemodialysis (unknown) (no (unknown) (unknown) docusate sodium (units (unknown) date) 100 mg capsule 100 unknown) mg PO BID 06/12/20 06/11/21 History (unknown) (no (unknown) (unknown) doxycycline (units (un known) date) hyclate 100 mg unknown) capsule 100 mg PO BID #20 caps 04/17/21 06/11/21 Rx (unknown) (no (unknown) (unknown) effects of Avastin (units (unknown) date) especially the risk unknown) of blood clot, bleeding, and hypertension (unknown) (no (unknown) (unknown) enlarged subcarinal (units (unknown) date) lymph node and unknown) abnormal appearing right axillary lymph nodes (unknown) (no (unknown) (unknown) eye (units (unkno wn) date) drops,suspension unknown) (Simbrinza) (unknown) (no (unknown) (unknown) found to have new (units (unknown) date) right pleural unknown) effusion requiring right thoracentesis on (unknown) (no (unknown) (unknown) gabapentin 100 mg (units (unknown) date) tablet 100 mg PO unknown) BEDTIME 09/25/20 06/11/21 History (unknown) (no (unknown) (unknown) guidelines, Alimta (units (unknown) date) is contraindicated unknown) in patients on hemodialysis. Therefore we (unknown) (no (unknown) (unknown) he has noticed 1 (units (unknown) date) episode of painless unknown) bleeding from the urine. It is small to (unknown) (no (unknown) (unknown) intermittent (units (u nknown) date) episodes of unknown) shortness of breath, but no chest pain. He denies any (unknown) (no (unknown) (unknown) ketoconazole 2 % (units (unknown) date) topical cream 1 unknown) applic topical BID 05/09/18 06/11/21 History (unknown) (no (unknown) (unknown) levothyroxine 200 (units (unknown) date) mcg tablet 200 mcg unknown) PO DAILY 90 days #1 tab 04/30/21 06/11/21 (unknown) (no (unknown) (unknown) loratadine 10 mg (units (unknown) date) capsule 10 mg PO unknown) DAILY 05/09/18 06/11/21 History (unknown) (no (unknown) (unknown) metoprolol (units (unk nown) date) tartrate 25 mg unknown) tablet 12.5 mg PO PRN PRN Hypertension 06/12/20 (unknown) (no (unknown) (unknown) mg capsule (units (unk nown) date) unknown) (unknown) (no (unknown) (unknown) moderate amount. (units (unknown) date) It is not unknown) associated with any trauma and any pain problems. (unknown) (no (unknown) (unknown) moderate (units (unkno wn) date) centrilobular unknown) emphysema and stable chronic pericardial thickening. (unknown) (no (unknown) (unknown) morphine AdvReac (units (unknown) date) Vomiting Verified unknown) 12/09/20 07:05 (unknown) (no (unknown) (unknown) new headache. He (units (unknown) date) is experiencing unknown) fatigue. No rashes, and no diarrhea. (unknown) (no (unknown) (unknown) olanzapine 5 mg (units (unknown) date) tablet (Zyprexa) 5 unknown) mg PO QDAY ##0 10/11/12 06/11/21 History (unknown) (no (unknown) (unknown) paroxetine HCl 20 (units (unknown) date) mg tablet (Paxil) unknown) 20 mg PO QDAY ##0 10/11/12 06/11/21 History (unknown) (no (unknown) (unknown) picolinate-ALA 500 (units (unknown) date) mg-100 mcg-150 unknown) (unknown) (no (unknown) (unknown) pioglitazone 45 mg (units (unknown) date) tablet 45 mg PO unknown) DAILY 06/12/20 06/11/21 History (unknown) (no (unknown) (unknown) progression (units (un known) date) involving right unknown) pleural space, increasing subcarinal lymph node, (unknown) (no (unknown) (unknown) pulmonary nodule (units (unknown) date) and a previously unknown) visualized pulmonary nodule unchanged, (unknown) (no (unknown) (unknown) radiation to the (units (unknown) date) brain. He has been unknown) on immunotherapy with pembrolizumab since (unknown) (no (unknown) (unknown) recurrence or (units (u nknown) date) metastasis. 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 In addition it (unknown) (no (unknown) (unknown) sevelamer (units (unkn own) date) carbonate 800 mg unknown) tablet 800 mg PO DAILY ##0 10/11/12 06/11/21 History (unknown) (no (unknown) (unknown) showed bilateral (units (unknown) date) solid and subsolid unknown) pulmonary nodules that have increased in (unknown) (no (unknown) (unknown) showed interval (units (unknown) date) increase of the unknown) right pleural effusion and increased (unknown) (no (unknown) (unknown) side of the lung. (units (unknown) date) Rhonchi is and unknown) crackles heard in both lungs. Mild scattered (unknown) (no (unknown) (unknown) size when compared (units (unknown) date) to the prior study unknown) from 09/09/2020. It showed mild to (unknown) (no (unknown) (unknown) solution for (units (u nknown) date) nebulization PRN unknown) bronchospasm #75 mL (unknown) (no (unknown) (unknown) stable. 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 (unknown) (no (unknown) (unknown) stereotactic (units (u nknown) date) radiation to the unknown) brain. (unknown) (no (unknown) (unknown) the shortness of (units (unknown) date) breath has improved unknown) significantly. (unknown) (no (unknown) (unknown) travoprost 0.004 % (units (unknown) date) eye drops 1 drp unknown) ophthalmic (eye) BEDTIME 06/12/20 06/11/21 (unknown) (no (unknown) (unknown) umeclidinium 62.5 (units (unknown) date) mcg/actuation 1 inh unknown) inhalation DAILY 05/09/18 06/11/21 History (unknown) (no (unknown) (unknown) vitamin B (units (unkn own) date) complex-vitamin unknown) C-folic 1 tab DAILY 09/25/20 06/11/21 History (unknown) (no (unknown) (unknown) wet cough. Today (units (unknown) date) I talked with the unknown) patient that upon reviewing of the (unknown) (no (unknown) (unknown) wheezes heard. (units (unknown) date) unknown) (unknown) (no (unknown) (unknown) with (units (unkno wn) date) pembrolizumab, unknown) repeat CT chest abdomen pelvis on 05/28/2021 showed disease (unknown) (no (unknown) (unknown) with removal of (units (unknown) date) 1350 cc of bloody unknown) fluid. After the procedure, patient said that (unknown) (no (unknown) (unknown) without contrast (units (unknown) date) on April 16, unknown) 2021. The scan showed new small to moderate Result panel 13 (unknown) (no (unknown) (unknown) (no value) (units (unk nown) date) unknown) (unknown) (no (unknown) (unknown) Date of Service: (units (unknown) date) 08/13/21 unknown) (unknown) (no (unknown) (unknown) (no value) (units (unk nown) date) unknown) (unknown) (no (unknown) (unknown) Allergies (units (unkn own) date) unknown) (unknown) (no (unknown) (unknown) Home Medications (units (unknown) date) unknown) (unknown) (no (unknown) (unknown) Intake and Output (units (unknown) date) unknown) (unknown) (no (unknown) (unknown) [facility] (units (unknown) date) [address] unknown) [place] [address] (unknown) (no (unknown) (unknown) Laboratory Last (units (unknown) date) Values unknown) (unknown) (no (unknown) (unknown) Oncology Progress (units (unknown) date) Note unknown) (unknown) (no (unknown) (unknown) Patient Weight (units (unknown) date) unknown) (unknown) (no (unknown) (unknown) Vital Signs (units (un known) date) unknown) (unknown) (no (unknown) (unknown) (no value) (units (unk nown) date) unknown) (unknown) (no (unknown) (unknown) Temp Pulse Resp BP (units (unknown) date) Pulse Ox unknown) (unknown) (no (unknown) (unknown) Weight 80.5 kg (units (unknown) date) unknown) (unknown) (no (unknown) (unknown) 08/12/21 08/13/21 (units (unknown) date) 08/13/21 unknown) (unknown) (no (unknown) (unknown) 08/13/21 (units (unkno wn) date) unknown) (unknown) (no (unknown) (unknown) 08/13/21 09:18 98 (units (unknown) date) F 65 18 166/82 H unknown) 97 (unknown) (no (unknown) (unknown) 23:59 (units (unkno wn) date) unknown) (unknown) (no (unknown) (unknown) 23:59 07:59 15:59 (units (unknown) date) unknown) (unknown) (no (unknown) (unknown) Medication (units (unk nown) date) Instructions unknown) Recorded Confirmed Type (unknown) (no (unknown) (unknown) Rx (units (unkno wn) date) unknown) (unknown) (no (unknown) (unknown) tolerated quite (units (unknown) date) well. 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 unknown) (unknown) (no (unknown) (unknown) (Incruse Ellipta) (units (unknown) date) unknown) (unknown) (no (unknown) (unknown) (Renvela) (units (unkn own) date) unknown) (unknown) (no (unknown) (unknown) - Date of Visit (units (unknown) date) unknown) (unknown) (no (unknown) (unknown) - Imaging (units (unkn own) date) unknown) (unknown) (no (unknown) (unknown) - Labs (units (unkno wn) date) unknown) (unknown) (no (unknown) (unknown) - Patient (units (unkn own) date) Self-Reported unknown) Symptoms (unknown) (no (unknown) (unknown) [id number] (units (unkno wn) date) unknown) (unknown) (no (unknown) (unknown) 05/23/2018. (units (un known) date) unknown) (unknown) (no (unknown) (unknown) 06/11/21 History (units (unknown) date) unknown) (unknown) (no (unknown) (unknown) 1. 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 (unknown) (no (unknown) (unknown) 2. Stereotactic (units (unknown) date) radiation to the unknown) brain (unknown) (no (unknown) (unknown) 04/01/2021 with (units ( unknown) date) removal of 1350 cc unknown) of bloody fluid. Despite continued treatment (unknown) (no (unknown) (unknown) 3. 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, high PD- (unknown) (no (unknown) (unknown) ALT 19 IU/L (<50) (units (unknown) date) 07/23/21 10:25 unknown) (unknown) (no (unknown) (unknown) AST 31 IU/L (units (u nknown) date) (17-59) 07/23/21 unknown) 10:25 (unknown) (no (unknown) (unknown) Abdomen: Soft, (units (unknown) date) NTND, BS normal, no unknown) palpable organomegaly (unknown) (no (unknown) (unknown) Additional (units (unk nown) date) studies: unknown) (unknown) (no (unknown) (unknown) Age/Sex: 70 / M (units (unknown) date) unknown) (unknown) (no (unknown) (unknown) Albumin 3.8 g/dL (units (unknown) date) (3.5-5.0) unknown) 07/23/21 10:25 (unknown) (no (unknown) (unknown) Albumin/Globulin (units (unknown) date) Ratio 1.4 unknown) (1.0-2.8) 07/23/21 10:25 (unknown) (no (unknown) (unknown) Alkaline (units (unkno wn) date) Phosphatase 239 unknown) U/L (38-126) H 07/23/21 10:25 (unknown) (no (unknown) (unknown) Allergy/AdvReac (units (unknown) date) Type Severity unknown) Reaction Status Date / Time (unknown) (no (unknown) (unknown) Antibody Screen (units (unknown) date) Negative 07/10/20 unknown) 12:55 (unknown) (no (unknown) (unknown) Assessment and (units (unknown) date) Plan unknown) (unknown) (no (unknown) (unknown) Assessment: (units (un known) date) unknown) (unknown) (no (unknown) (unknown) BUN 38 mg/dL (units ( unknown) date) (9-20) H 07/23/21 unknown) 10:25 (unknown) (no (unknown) (unknown) BUN/Creatinine (units (unknown) date) Ratio 9.9 (6-22) unknown) 07/23/21 10:25 (unknown) (no (unknown) (unknown) Baso # (Auto) 100 (units (unknown) date) /uL (0-100) unknown) 08/13/21 08:50 (unknown) (no (unknown) (unknown) Baso % (Auto) 1.2 (units (unknown) date) % (0-2) 08/13/21 unknown) 08:50 (unknown) (no (unknown) (unknown) Because of (units (unk nown) date) worsening shortness unknown) of breath, patient underwent CT of the chest (unknown) (no (unknown) (unknown) Blood Type A (units ( unknown) date) Positive 07/10/20 unknown) 12:55 (unknown) (no (unknown) (unknown) Borderline (units (unk nown) date) axillary lymph unknown) nodes noted slightly worse on the right. (unknown) (no (unknown) (unknown) CALCIUM ACETATE (units (unknown) date) (PHOSLO-) 667 mg PO unknown) QDAY ##0 10/11/12 06/11/21 History (unknown) (no (unknown) (unknown) Calcium 9.6 mg/dL (units (unknown) date) (8.4-10.2) unknown) 07/23/21 10:25 (unknown) (no (unknown) (unknown) Call for any (units (u nknown) date) concerns or unknown) questions. (unknown) (no (unknown) (unknown) Carbon Dioxide 32 (units (unknown) date) mmol/L (22-32) unknown) 07/23/21 10:25 (unknown) (no (unknown) (unknown) Cardiovascular: (units (unknown) date) RRR, S1 and S2 unknown) normal, no M/G/R. (unknown) (no (unknown) (unknown) Chief Complaint: (units (unknown) date) Héctor is a 70 year unknown) old with metastatic adenocarcinoma of the lung (unknown) (no (unknown) (unknown) Chloride 94 (units (u nknown) date) mmol/L (98-107) L unknown) 07/23/21 10:25 (unknown) (no (unknown) (unknown) Clinically, (units (un known) date) patient has been unknown) doing well. Patient has been followed closely by (unknown) (no (unknown) (unknown) Creatinine 3.83 (units (unknown) date) mg/dL (0.66-1.25) unknown) H 07/23/21 10:25 (unknown) (no (unknown) (unknown) Crossmatch See (units (unknown) date) Detail 07/10/20 unknown) 12:55 (unknown) (no (unknown) (unknown) : 1950 (units (unknown) date) Acct:[id number] unknown) (unknown) (no (unknown) (unknown) Date of visit: (units (unknown) date) 08/13/21 unknown) (unknown) (no (unknown) (unknown) Miladys is a (units (un known) date) 70-year-old man unknown) with metastatic adenocarcinoma of the lung with (unknown) (no (unknown) (unknown) ECOG 1 (units (unkno wn) date) unknown) (unknown) (no (unknown) (unknown) Endoscopic (units (unk nown) date) polypectomy of unknown) large intestine (12/01/11) (unknown) (no (unknown) (unknown) Eos # (Auto) 100 (units (unknown) date) /uL (0-450) unknown) 08/13/21 08:50 (unknown) (no (unknown) (unknown) Eos % (Auto) 2.7 (units (unknown) date) % (2-4) 08/13/21 unknown) 08:50 (unknown) (no (unknown) (unknown) Estimated GFR 16 (units (unknown) date) mL/min (>60) L unknown) 07/23/21 10:25 (unknown) (no (unknown) (unknown) Exam (units (unkno wn) date) unknown) (unknown) (no (unknown) (unknown) Extremities: No LE (units (unknown) date) pitting edema. unknown) (unknown) (no (unknown) (unknown) Free T4 2.20 (units ( unknown) date) ng/dL (0.78-2.19) unknown) H 04/19/19 13:40 (unknown) (no (unknown) (unknown) Gen: WDWN, NAD, (units (unknown) date) pleasant and unknown) cooperative. (unknown) (no (unknown) (unknown) GenericComposite[P (units (unknown) date) lt Count 101 unknown) X10^3/uL (150-400) L 08/13/21 08:50 ] (unknown) (no (unknown) (unknown) GenericComposite[R (units (unknown) date) BC 3.40 X10^6/uL unknown) (4.5-5.9) L 08/13/21 08:50 ] (unknown) (no (unknown) (unknown) GenericComposite[W (units (unknown) date) BC 5.3 X10^3/uL unknown) (4.5-11.0) 08/13/21 08:50 ] (unknown) (no (unknown) (unknown) Globulin 2.8 g/dL (units (unknown) date) (1.7-4.1) unknown) 07/23/21 10:25 (unknown) (no (unknown) (unknown) Glucose 209 mg/dL (units (unknown) date) (80-110) H unknown) 07/23/21 10:25 (unknown) (no (unknown) (unknown) HEENT: NCAT, (units ( unknown) date) EOMI, PERRLA, unknown) anicteric sclera. (unknown) (no (unknown) (unknown) Hct 33.2 % (units (un known) date) (41-53) L unknown) 08/13/21 08:50 (unknown) (no (unknown) (unknown) He came in today (units (unknown) date) accompanied by her unknown) family member. The patient is complaining (unknown) (no (unknown) (unknown) He has been on (units (unknown) date) immunotherapy with unknown) pembrolizumab since 05/23/2018. 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 He was (unknown) (no (unknown) (unknown) Injection of other (units (unknown) date) agent into spinal unknown) canal (10/19/12) (unknown) (no (unknown) (unknown) Injection of (units (u nknown) date) steroid (10/19/12) unknown) (unknown) (no (unknown) (unknown) Interval history: (units (unknown) date) unknown) (unknown) (no (unknown) (unknown) L1, positive KRAS, (units (unknown) date) and negative for unknown) EGFR/ALK/ROS-1/BRAF . (unknown) (no (unknown) (unknown) Lymph # (Auto) (units (unknown) date) 400 /uL (1072-8415) unknown) L 08/13/21 08:50 (unknown) (no (unknown) (unknown) Lymph % (Auto) (units (unknown) date) 7.7 % (25-40) L unknown) 08/13/21 08:50 (unknown) (no (unknown) (unknown) Lymphatic: no (units ( unknown) date) palpable lymph unknown) nodes in the neck, or axillae (unknown) (no (unknown) (unknown) MCH 33.5 PG (units (u nknown) date) (26-34) 08/13/21 unknown) 08:50 (unknown) (no (unknown) (unknown) MCHC 34.3 % (units (u nknown) date) (30-36) 08/13/21 unknown) 08:50 (unknown) (no (unknown) (unknown) MCV 97.6 fL (units (u nknown) date) (80-100) 08/13/21 unknown) 08:50 (unknown) (no (unknown) (unknown) [place] # (Auto) 500 (units (unknown) date) /uL (0-900) unknown) 08/13/21 08:50 (unknown) (no (unknown) (unknown) [place] % (Auto) 8.8 (units (unknown) date) % (3-14) 08/13/21 unknown) 08:50 (unknown) (no (unknown) (unknown) Narrative: (units (unk nown) date) unknown) (unknown) (no (unknown) (unknown) Neck: Supple, No (units (unknown) date) palpable unknown) thyromegaly or lymphadenopathy. (unknown) (no (unknown) (unknown) Neurological: AOx3, (units (unknown) date) CN II-XII grossly unknown) intact. No focal motor or sensory deficit. (unknown) (no (unknown) (unknown) Neut # (Auto) (units ( unknown) date) 4200 /uL unknown) ([id number]) 08/13/21 08:50 (unknown) (no (unknown) (unknown) Neut % (Auto) (units ( unknown) date) 79.6 % (50-75) H unknown) 08/13/21 08:50 (unknown) (no (unknown) (unknown) OMEPRAZOLE 40 mg (units (unknown) date) PO BID ##0 10/11/12 unknown) 06/11/21 History (unknown) (no (unknown) (unknown) Ok to proceed to (units (unknown) date) Pembolizumab today unknown) (unknown) (no (unknown) (unknown) On 04/30/2021, we (units (unknown) date) restarted unknown) pembrolizumab 200 mg iv q21d. He has tolerated well. (unknown) (no (unknown) (unknown) On 04/21/2021, (units (u nknown) date) patient underwent unknown) successful ultrasound-guided right thoracentesis (unknown) (no (unknown) (unknown) On 05/28/2021, (units ( unknown) date) patient underwent unknown) CT chest abdomen and pelvis with contrast that (unknown) (no (unknown) (unknown) On 07/23/2021, we (units (unknown) date) also initiated unknown) Avastin once every 3 weeks. Patient overall has (unknown) (no (unknown) (unknown) Oncological (units (un known) date) History Summary: unknown) (unknown) (no (unknown) (unknown) Other endoscopy of (units (unknown) date) small intestine unknown) (12/01/11) (unknown) (no (unknown) (unknown) Other x-ray of (units (unknown) date) cervical spine unknown) (10/19/12) (unknown) (no (unknown) (unknown) Other: (units (unkno wn) date) unknown) (unknown) (no (unknown) (unknown) PN -Subjective (units (unknown) date) unknown) (unknown) (no (unknown) (unknown) Patient started (units (unknown) date) Avastin on unknown) 07/24/2019 to together with pembrolizumab. (unknown) (no (unknown) (unknown) Patient underwent (units (unknown) date) MRI of the brain unknown) 11/18/2020 that showed no evidence of (unknown) (no (unknown) (unknown) Patient: (units (unkno wn) date) Miladys Díaz unknown) MR#: [id number] (unknown) (no (unknown) (unknown) Penicillins (units (un known) date) Allergy Severe unknown) passed out Verified 12/09/20 07:05 (unknown) (no (unknown) (unknown) Plan: (units (unkno wn) date) unknown) (unknown) (no (unknown) (unknown) Potassium 3.9 (units (unknown) date) mmol/L (3.4-5.1) unknown) 07/23/21 10:25 (unknown) (no (unknown) (unknown) Procedures (units (unk nown) date) unknown) (unknown) (no (unknown) (unknown) Provider: (units (unkn own) date) Willy Iglesias MD unknown) (unknown) (no (unknown) (unknown) Psychiatric: (units (u nknown) date) normal affect; unknown) normal thought process. (unknown) (no (unknown) (unknown) RDW 15.4 % (units (un known) date) (11.6-14.8) H unknown) 08/13/21 08:50 (unknown) (no (unknown) (unknown) RN visit only in 3 (units (unknown) date) weeks for unknown) pembrolizuamb/avast in (unknown) (no (unknown) (unknown) ROS1 and BRAF. The (units (unknown) date) cancer does have unknown) high PD-L1 expression. He underwent (unknown) (no (unknown) (unknown) RTC in 6 weeks for (units (unknown) date) follow up visit unknown) (unknown) (no (unknown) (unknown) Random Cortisol (units (unknown) date) 14.0 ug/dL unknown) 01/24/19 11:25 (unknown) (no (unknown) (unknown) Respiratory: (units (u nknown) date) Significantly unknown) decreased breathing sound heard over on the right (unknown) (no (unknown) (unknown) Results (units (unkno wn) date) unknown) (unknown) (no (unknown) (unknown) Rx (units (unkno wn) date) unknown) (unknown) (no (unknown) (unknown) SR Cardiovascular (units (unknown) date) issues: Shortness unknown) of breath with activity or lying flat (unknown) (no (unknown) (unknown) SR Constitution: (units (unknown) date) Fatigue/Malaise unknown) (unknown) (no (unknown) (unknown) SR Endocrine (units (u nknown) date) issues: Cold unknown) intolerance (unknown) (no (unknown) (unknown) SR (units (unkno wn) date) Gastrointestinal unknown) issues: Vomiting (unknown) (no (unknown) (unknown) SR Musculoskeletal (units (unknown) date) issues: Muscle unknown) weakness (unknown) (no (unknown) (unknown) SR Neuro issues: (units (unknown) date) Headache, Tremors unknown) or shaking (unknown) (no (unknown) (unknown) SR Skin issues: (units (unknown) date) Skin rash or unknown) itching (unknown) (no (unknown) (unknown) SR ears, nose, (units (unknown) date) mouth, throat unknown) issues: Cough (unknown) (no (unknown) (unknown) SR eye issues: (units (unknown) date) Vision changes unknown) (unknown) (no (unknown) (unknown) SR respiratory (units (unknown) date) issues: Cough, unknown) Shortness of breath (unknown) (no (unknown) (unknown) Signed By: (units (unk nown) date) unknown) (unknown) (no (unknown) (unknown) Sodium 134 mmol/L (units (unknown) date) (137-145) L unknown) 07/23/21 10:25 (unknown) (no (unknown) (unknown) TSH 2.82 uIU/mL (units (unknown) date) (0.47-4.68) unknown) 07/23/21 10:25 (unknown) (no (unknown) (unknown) Total Bilirubin (units (unknown) date) 0.8 mg/dL (0.2-1.3) unknown) 07/23/21 10:25 (unknown) (no (unknown) (unknown) Total Protein 6.6 (units (unknown) date) g/dL (6.3-8.2) unknown) 07/23/21 10:25 (unknown) (no (unknown) (unknown) Treatment Summary (units (unknown) date) unknown) (unknown) (no (unknown) (unknown) VITAMIN D (Vitamin (units (unknown) date) D3) 4,000 unit PO unknown) DAILY ##0 10/11/12 06/11/21 History (unknown) (no (unknown) (unknown) Vital signs: (units (u nknown) date) unknown) (unknown) (no (unknown) (unknown) Weight 80.5 kg (units (unknown) date) unknown) (unknown) (no (unknown) (unknown) [DIALYVITE] 100 mg (units (unknown) date) PO QDAY ##0 unknown) 10/11/12 06/11/21 History (unknown) (no (unknown) (unknown) [Endoscopic] (units (u nknown) date) polypectomy of unknown) rectum (12/01/11) (unknown) (no (unknown) (unknown) abnormal right (units (unknown) date) axillary lymph unknown) nodes, new left upper lung nodule, and increasing (unknown) (no (unknown) (unknown) acetaminophen 325 (units (unknown) date) mg tablet 650 mg PO unknown) Q4H PRN Pain, Moderate 06/12/20 06/11/21 (unknown) (no (unknown) (unknown) acid 0.8 mg tablet (units (unknown) date) (Kristal-Braden) unknown) (unknown) (no (unknown) (unknown) aerosol inhaler (units (unknown) date) (ProAir HFA) unknown) (unknown) (no (unknown) (unknown) albuterol sulfate (units (unknown) date) 1.25 mg/3 mL 1.25 unknown) mg (3 mL) inhalation Q4-6H 01/08/19 06/11/21 (unknown) (no (unknown) (unknown) albuterol sulfate (units (unknown) date) 90 mcg/actuation 2 unknown) puff inhalation Q4-6H 05/09/18 06/11/21 (unknown) (no (unknown) (unknown) appropriate. Will (units (unknown) date) proceed with unknown) scheduled treatment with pembrolizumab/Avast in. (unknown) (no (unknown) (unknown) as well as (units (unk nown) date) enlarged left unknown) retroperitoneal lymph node (unknown) (no (unknown) (unknown) aspirin 81 mg (units ( unknown) date) tablet 81 mg PO unknown) DAILY 06/12/20 06/11/21 History (unknown) (no (unknown) (unknown) atorvastatin 80 mg (units (unknown) date) tablet 40 mg PO unknown) DAILY 06/12/20 06/11/21 History (unknown) (no (unknown) (unknown) blister powder for (units (unknown) date) inhalation unknown) (unknown) (no (unknown) (unknown) brain metastasis. (units (unknown) date) His cancer is unknown) positive for KRAS, but negative for EGFR, ALK, (unknown) (no (unknown) (unknown) brinzolamide 1 (units (unknown) date) %-brimonidine 0.2 % unknown) 1 drp ophthalmic (eye) BID 06/12/20 06/11/21 (unknown) (no (unknown) (unknown) cancer here for (units (unknown) date) scheduled follow up unknown) visit. (unknown) (no (unknown) (unknown) cinnamon (units (unkno wn) date) bark-chromium 1 cap unknown) PO DAILY 09/25/20 06/11/21 History (unknown) (no (unknown) (unknown) codeine AdvReac (units (unknown) date) Intermediate unknown) Vomiting Verified 12/09/20 07:05 (unknown) (no (unknown) (unknown) collapse/consolida (units (unknown) date) tion within the unknown) right middle and lower lobes, new left (unknown) (no (unknown) (unknown) day. Patient will (units (unknown) date) continue follow-up unknown) with Nephrology and his primary care (unknown) (no (unknown) (unknown) docusate sodium (units (unknown) date) 100 mg capsule 100 unknown) mg PO BID 06/12/20 06/11/21 History (unknown) (no (unknown) (unknown) doxycycline (units (un known) date) hyclate 100 mg unknown) capsule 100 mg PO BID #20 caps 04/17/21 06/11/21 Rx (unknown) (no (unknown) (unknown) enlarged subcarinal (units (unknown) date) lymph node and unknown) abnormal appearing right axillary lymph nodes (unknown) (no (unknown) (unknown) eye (units (unkno wn) date) drops,suspension unknown) (Simbrinza) (unknown) (no (unknown) (unknown) found to have new (units (unknown) date) right pleural unknown) effusion requiring right thoracentesis on (unknown) (no (unknown) (unknown) gabapentin 100 mg (units (unknown) date) tablet 100 mg PO unknown) BEDTIME 09/25/20 06/11/21 History (unknown) (no (unknown) (unknown) his in terms (units (unknown) date) of the blood unknown) pressure. Patient is taking metoprolol once a (unknown) (no (unknown) (unknown) intermittent (units (u nknown) date) episodes of unknown) shortness of breath, but no chest pain. He denies any (unknown) (no (unknown) (unknown) ketoconazole 2 % (units (unknown) date) topical cream 1 unknown) applic topical BID 05/09/18 06/11/21 History (unknown) (no (unknown) (unknown) levothyroxine 200 (units (unknown) date) mcg tablet 200 mcg unknown) PO DAILY 90 days #1 tab 04/30/21 06/11/21 (unknown) (no (unknown) (unknown) loratadine 10 mg (units (unknown) date) capsule 10 mg PO unknown) DAILY 05/09/18 06/11/21 History (unknown) (no (unknown) (unknown) metoprolol (units (unk nown) date) tartrate 25 mg unknown) tablet 12.5 mg PO PRN PRN Hypertension 06/12/20 (unknown) (no (unknown) (unknown) mg capsule (units (unk nown) date) unknown) (unknown) (no (unknown) (unknown) moderate (units (unkno wn) date) centrilobular unknown) emphysema and stable chronic pericardial thickening. (unknown) (no (unknown) (unknown) months before we (units (unknown) date) proceed with next unknown) surveillance imaging studies to evaluate the (unknown) (no (unknown) (unknown) morphine AdvReac (units (unknown) date) Vomiting Verified unknown) 12/09/20 07:05 (unknown) (no (unknown) (unknown) new headache. He (units (unknown) date) is experiencing unknown) fatigue. No rashes, and no diarrhea. (unknown) (no (unknown) (unknown) olanzapine 5 mg (units (unknown) date) tablet (Zyprexa) 5 unknown) mg PO QDAY ##0 10/11/12 06/11/21 History (unknown) (no (unknown) (unknown) paroxetine HCl 20 (units (unknown) date) mg tablet (Paxil) unknown) 20 mg PO QDAY ##0 10/11/12 06/11/21 History (unknown) (no (unknown) (unknown) picolinate-ALA 500 (units (unknown) date) mg-100 mcg-150 unknown) (unknown) (no (unknown) (unknown) pioglitazone 45 mg (units (unknown) date) tablet 45 mg PO unknown) DAILY 06/12/20 06/11/21 History (unknown) (no (unknown) (unknown) progression (units (un known) date) involving right unknown) pleural space, increasing subcarinal lymph node, (unknown) (no (unknown) (unknown) provider for blood (units (unknown) date) pressure and unknown) diabetic control. Patient denies any worsening (unknown) (no (unknown) (unknown) pulmonary nodule (units (unknown) date) and a previously unknown) visualized pulmonary nodule unchanged, (unknown) (no (unknown) (unknown) radiation to the (units (unknown) date) brain. He has been unknown) on immunotherapy with pembrolizumab since (unknown) (no (unknown) (unknown) recurrence or (units (u nknown) date) metastasis. unknown) Resection cavity and associated gliosis have remained (unknown) (no (unknown) (unknown) resection of a (units (unknown) date) right frontal brain unknown) tumor in February 2018, and stereotactic (unknown) (no (unknown) (unknown) respiratory attack (units (unknown) date) recently. Patient unknown) reports no new bleeding problems. (unknown) (no (unknown) (unknown) response to the (units (unknown) date) treatment. unknown) Reviewed the labs from today. CBC and CMP are (unknown) (no (unknown) (unknown) retroperitoneal (units (unknown) date) lymph nodes unknown) (unknown) (no (unknown) (unknown) right pleural (units (u nknown) date) effusion with unknown) atelectasis of the right lower lobe. In addition it (unknown) (no (unknown) (unknown) sevelamer (units (unkn own) date) carbonate 800 mg unknown) tablet 800 mg PO DAILY ##0 10/11/12 06/11/21 History (unknown) (no (unknown) (unknown) shortness of (units (u nknown) date) breath. According unknown) to patient's , patient has not had any (unknown) (no (unknown) (unknown) showed bilateral (units (unknown) date) solid and subsolid unknown) pulmonary nodules that have increased in (unknown) (no (unknown) (unknown) showed interval (units (unknown) date) increase of the unknown) right pleural effusion and increased (unknown) (no (unknown) (unknown) side of the lung. (units (unknown) date) Rhonchi is and unknown) crackles heard in both lungs. Mild scattered (unknown) (no (unknown) (unknown) size when compared (units (unknown) date) to the prior study unknown) from 09/09/2020. It showed mild to (unknown) (no (unknown) (unknown) solution for (units (u nknown) date) nebulization PRN unknown) bronchospasm #75 mL (unknown) (no (unknown) (unknown) stable. 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 (unknown) (no (unknown) (unknown) stereotactic (units (u nknown) date) radiation to the unknown) brain. (unknown) (no (unknown) (unknown) the shortness of (units (unknown) date) breath has improved unknown) significantly. (unknown) (no (unknown) (unknown) travoprost 0.004 % (units (unknown) date) eye drops 1 drp unknown) ophthalmic (eye) BEDTIME 06/12/20 06/11/21 (unknown) (no (unknown) (unknown) umeclidinium 62.5 (units (unknown) date) mcg/actuation 1 inh unknown) inhalation DAILY 05/09/18 06/11/21 History (unknown) (no (unknown) (unknown) vitamin B (units (unkn own) date) complex-vitamin unknown) C-folic 1 tab DAILY 09/25/20 06/11/21 History (unknown) (no (unknown) (unknown) wheezes heard. (units (unknown) date) unknown) (unknown) (no (unknown) (unknown) with (units (unkno wn) date) pembrolizumab, unknown) repeat CT chest abdomen pelvis on 05/28/2021 showed disease (unknown) (no (unknown) (unknown) with removal of (units (unknown) date) 1350 cc of bloody unknown) fluid. After the procedure, patient said that (unknown) (no (unknown) (unknown) without contrast (units (unknown) date) on April 16, unknown) 2021. The scan showed new small to moderate Result panel 14 (unknown) (no date) (unknown) (unknown) 18.6 uIU/mL (unkn own) Result panel 15 (unknown) (no (unknown) (unknown) (no value) (units (unk nown) date) unknown) (unknown) (no (unknown) (unknown) Date of Service: (units (unknown) date) 08/13/21 unknown) (unknown) (no (unknown) (unknown) (no value) (units (unk nown) date) unknown) (unknown) (no (unknown) (unknown) Allergies (units (unkn own) date) unknown) (unknown) (no (unknown) (unknown) Home Medications (units (unknown) date) unknown) (unknown) (no (unknown) (unknown) Intake and Output (units (unknown) date) unknown) (unknown) (no (unknown) (unknown) [facility] (units (unknown) date) [address] unknown) [place] [address] (unknown) (no (unknown) (unknown) Laboratory Last (units (unknown) date) Values unknown) (unknown) (no (unknown) (unknown) Oncology Progress (units (unknown) date) Note unknown) (unknown) (no (unknown) (unknown) Patient Weight (units (unknown) date) unknown) (unknown) (no (unknown) (unknown) Vital Signs (units (un known) date) unknown) (unknown) (no (unknown) (unknown) (no value) (units (unk nown) date) unknown) (unknown) (no (unknown) (unknown) Temp Pulse Resp BP (units (unknown) date) Pulse Ox unknown) (unknown) (no (unknown) (unknown) Weight 80.5 kg (units (unknown) date) unknown) (unknown) (no (unknown) (unknown) 08/12/21 08/13/21 (units (unknown) date) 08/13/21 unknown) (unknown) (no (unknown) (unknown) 08/13/21 (units (unkno wn) date) unknown) (unknown) (no (unknown) (unknown) 08/13/21 09:18 98 (units (unknown) date) F 65 18 166/82 H unknown) 97 (unknown) (no (unknown) (unknown) 23:59 (units (unkno wn) date) unknown) (unknown) (no (unknown) (unknown) 23:59 07:59 15:59 (units (unknown) date) unknown) (unknown) (no (unknown) (unknown) Medication (units (unk nown) date) Instructions unknown) Recorded Confirmed Type (unknown) (no (unknown) (unknown) Rx (units (unkno wn) date) unknown) (unknown) (no (unknown) (unknown) (1) 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 unknown) (unknown) (no (unknown) (unknown) (Incruse Ellipta) (units (unknown) date) unknown) (unknown) (no (unknown) (unknown) (Renvela) (units (unkn own) date) unknown) (unknown) (no (unknown) (unknown) - Date of Visit (units (unknown) date) unknown) (unknown) (no (unknown) (unknown) - Imaging (units (unkn own) date) unknown) (unknown) (no (unknown) (unknown) - Labs (units (unkno wn) date) unknown) (unknown) (no (unknown) (unknown) - Patient (units (unkn own) date) Self-Reported unknown) Symptoms (unknown) (no (unknown) (unknown) [id number] (units (unkno wn) date) unknown) (unknown) (no (unknown) (unknown) 05/23/2018. (units (un known) date) unknown) (unknown) (no (unknown) (unknown) 08/13/21 History (units (unknown) date) unknown) (unknown) (no (unknown) (unknown) 1. 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 (unknown) (no (unknown) (unknown) 2. Stereotactic (units (unknown) date) radiation to the unknown) brain (unknown) (no (unknown) (unknown) 04/01/2021 with (units ( unknown) date) removal of 1350 cc unknown) of bloody fluid. Despite continued treatment (unknown) (no (unknown) (unknown) 3. Pembrolizumab (units (unknown) date) since 05/23/2018 unknown) (unknown) (no (unknown) (unknown) 4. 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, high PD- (unknown) (no (unknown) (unknown) ALT 19 IU/L (<50) (units (unknown) date) 07/23/21 10:25 unknown) (unknown) (no (unknown) (unknown) AST 31 IU/L (units (u nknown) date) (17-59) 07/23/21 unknown) 10:25 (unknown) (no (unknown) (unknown) Abdomen: Soft, (units (unknown) date) NTND, BS normal, no unknown) palpable organomegaly (unknown) (no (unknown) (unknown) According to (units (u nknown) date) patient's , unknown) patient has not had any respiratory 'attack' (unknown) (no (unknown) (unknown) Additional (units (unk nown) date) studies: unknown) (unknown) (no (unknown) (unknown) Age/Sex: 70 / M (units (unknown) date) unknown) (unknown) (no (unknown) (unknown) Albumin 3.8 g/dL (units (unknown) date) (3.5-5.0) unknown) 07/23/21 10:25 (unknown) (no (unknown) (unknown) Albumin/Globulin (units (unknown) date) Ratio 1.4 unknown) (1.0-2.8) 07/23/21 10:25 (unknown) (no (unknown) (unknown) Alkaline (units (unkno wn) date) Phosphatase 239 unknown) U/L (38-126) H 07/23/21 10:25 (unknown) (no (unknown) (unknown) Allergy/AdvReac (units (unknown) date) Type Severity unknown) Reaction Status Date / Time (unknown) (no (unknown) (unknown) Antibody Screen (units (unknown) date) Negative 07/10/20 unknown) 12:55 (unknown) (no (unknown) (unknown) Assessment and (units (unknown) date) Plan unknown) (unknown) (no (unknown) (unknown) Assessment: (units (un known) date) unknown) (unknown) (no (unknown) (unknown) BUN 38 mg/dL (units ( unknown) date) (9-20) H 07/23/21 unknown) 10:25 (unknown) (no (unknown) (unknown) BUN/Creatinine (units (unknown) date) Ratio 9.9 (6-22) unknown) 07/23/21 10:25 (unknown) (no (unknown) (unknown) Baso # (Auto) 100 (units (unknown) date) /uL (0-100) unknown) 08/13/21 08:50 (unknown) (no (unknown) (unknown) Baso % (Auto) 1.2 (units (unknown) date) % (0-2) 08/13/21 unknown) 08:50 (unknown) (no (unknown) (unknown) Because of (units (unk nown) date) worsening shortness unknown) of breath, patient underwent CT of the chest (unknown) (no (unknown) (unknown) Blood Type A (units ( unknown) date) Positive 07/10/20 unknown) 12:55 (unknown) (no (unknown) (unknown) Borderline (units (unk nown) date) axillary lymph unknown) nodes noted slightly worse on the right. (unknown) (no (unknown) (unknown) CALCIUM ACETATE (units (unknown) date) (PHOSLO-) 667 mg PO unknown) QDAY ##0 10/11/12 06/11/21 History (unknown) (no (unknown) (unknown) Calcium 9.6 mg/dL (units (unknown) date) (8.4-10.2) unknown) 07/23/21 10:25 (unknown) (no (unknown) (unknown) Call for any (units (u nknown) date) concerns or unknown) questions. (unknown) (no (unknown) (unknown) Carbon Dioxide 32 (units (unknown) date) mmol/L (22-32) unknown) 07/23/21 10:25 (unknown) (no (unknown) (unknown) Cardiovascular: (units (unknown) date) RRR, S1 and S2 unknown) normal, no M/G/R. (unknown) (no (unknown) (unknown) Chief Complaint: (units (unknown) date) Héctor is a 70 year unknown) old with metastatic adenocarcinoma of the lung (unknown) (no (unknown) (unknown) Chloride 94 (units (u nknown) date) mmol/L (98-107) L unknown) 07/23/21 10:25 (unknown) (no (unknown) (unknown) Clinically, (units (un known) date) patient has been unknown) doing well. Patient has been followed closely by (unknown) (no (unknown) (unknown) Creatinine 3.83 (units (unknown) date) mg/dL (0.66-1.25) unknown) H 07/23/21 10:25 (unknown) (no (unknown) (unknown) Crossmatch See (units (unknown) date) Detail 07/10/20 unknown) 12:55 (unknown) (no (unknown) (unknown) : 1950 (units (unknown) date) Acct:[id number] unknown) (unknown) (no (unknown) (unknown) Date of visit: (units (unknown) date) 08/13/21 unknown) (unknown) (no (unknown) (unknown) Miladys is a (units (un known) date) 70-year-old man unknown) with metastatic adenocarcinoma of the lung with (unknown) (no (unknown) (unknown) ECOG 1 (units (unkno wn) date) unknown) (unknown) (no (unknown) (unknown) Endoscopic (units (unk nown) date) polypectomy of unknown) large intestine (12/01/11) (unknown) (no (unknown) (unknown) Eos # (Auto) 100 (units (unknown) date) /uL (0-450) unknown) 08/13/21 08:50 (unknown) (no (unknown) (unknown) Eos % (Auto) 2.7 (units (unknown) date) % (2-4) 08/13/21 unknown) 08:50 (unknown) (no (unknown) (unknown) Estimated GFR 16 (units (unknown) date) mL/min (>60) L unknown) 07/23/21 10:25 (unknown) (no (unknown) (unknown) Exam (units (unkno wn) date) unknown) (unknown) (no (unknown) (unknown) Extremities: No LE (units (unknown) date) pitting edema. unknown) (unknown) (no (unknown) (unknown) Free T4 2.20 (units ( unknown) date) ng/dL (0.78-2.19) unknown) H 04/19/19 13:40 (unknown) (no (unknown) (unknown) Gen: WDWN, NAD, (units (unknown) date) pleasant and unknown) cooperative. (unknown) (no (unknown) (unknown) GenericComposite[P (units (unknown) date) lt Count 101 unknown) X10^3/uL (150-400) L 08/13/21 08:50 ] (unknown) (no (unknown) (unknown) GenericComposite[R (units (unknown) date) BC 3.40 X10^6/uL unknown) (4.5-5.9) L 08/13/21 08:50 ] (unknown) (no (unknown) (unknown) GenericComposite[W (units (unknown) date) BC 5.3 X10^3/uL unknown) (4.5-11.0) 08/13/21 08:50 ] (unknown) (no (unknown) (unknown) Globulin 2.8 g/dL (units (unknown) date) (1.7-4.1) unknown) 07/23/21 10:25 (unknown) (no (unknown) (unknown) Glucose 209 mg/dL (units (unknown) date) (80-110) H unknown) 07/23/21 10:25 (unknown) (no (unknown) (unknown) HEENT: NCAT, (units ( unknown) date) EOMI, PERRLA, unknown) anicteric sclera. (unknown) (no (unknown) (unknown) Hct 33.2 % (units (un known) date) (41-53) L unknown) 08/13/21 08:50 (unknown) (no (unknown) (unknown) He came in today (units (unknown) date) accompanied by her unknown) family member. The patient is complaining (unknown) (no (unknown) (unknown) He has been on (units (unknown) date) immunotherapy with unknown) pembrolizumab since 05/23/2018. 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 He was (unknown) (no (unknown) (unknown) Injection of other (units (unknown) date) agent into spinal unknown) canal (10/19/12) (unknown) (no (unknown) (unknown) Injection of (units (u nknown) date) steroid (10/19/12) unknown) (unknown) (no (unknown) (unknown) Interval history: (units (unknown) date) unknown) (unknown) (no (unknown) (unknown) L1, positive KRAS, (units (unknown) date) and negative for unknown) EGFR/ALK/ROS-1/BRAF . (unknown) (no (unknown) (unknown) Lymph # (Auto) (units (unknown) date) 400 /uL ([id number]) unknown) L 08/13/21 08:50 (unknown) (no (unknown) (unknown) Lymph % (Auto) (units (unknown) date) 7.7 % (25-40) L unknown) 08/13/21 08:50 (unknown) (no (unknown) (unknown) Lymphatic: no (units ( unknown) date) palpable lymph unknown) nodes in the neck, or axillae (unknown) (no (unknown) (unknown) MCH 33.5 PG (units (u nknown) date) (26-34) 08/13/21 unknown) 08:50 (unknown) (no (unknown) (unknown) MCHC 34.3 % (units (u nknown) date) (30-36) 08/13/21 unknown) 08:50 (unknown) (no (unknown) (unknown) MCV 97.6 fL (units (u nknown) date) (80-100) 08/13/21 unknown) 08:50 (unknown) (no (unknown) (unknown) [place] # (Auto) 500 (units (unknown) date) /uL (0-900) unknown) 08/13/21 08:50 (unknown) (no (unknown) (unknown) [place] % (Auto) 8.8 (units (unknown) date) % (3-14) 08/13/21 unknown) 08:50 (unknown) (no (unknown) (unknown) Narrative: (units (unk nown) date) unknown) (unknown) (no (unknown) (unknown) Neck: Supple, No (units (unknown) date) palpable unknown) thyromegaly or lymphadenopathy. (unknown) (no (unknown) (unknown) Neurological: AOx3, (units (unknown) date) CN II-XII grossly unknown) intact. No focal motor or sensory deficit. (unknown) (no (unknown) (unknown) Neut # (Auto) (units ( unknown) date) 4200 /uL unknown) ([id number]) 08/13/21 08:50 (unknown) (no (unknown) (unknown) Neut % (Auto) (units ( unknown) date) 79.6 % (50-75) H unknown) 08/13/21 08:50 (unknown) (no (unknown) (unknown) OMEPRAZOLE 40 mg (units (unknown) date) PO BID ##0 10/11/12 unknown) 06/11/21 History (unknown) (no (unknown) (unknown) Ok to proceed to (units (unknown) date) Pembolizumab today unknown) (unknown) (no (unknown) (unknown) On 04/30/2021, we (units (unknown) date) restarted unknown) pembrolizumab 200 mg iv q21d. He has tolerated well. (unknown) (no (unknown) (unknown) On 04/21/2021, (units (u nknown) date) patient underwent unknown) successful ultrasound-guided right thoracentesis (unknown) (no (unknown) (unknown) On 05/28/2021, (units ( unknown) date) patient underwent unknown) CT chest abdomen and pelvis with contrast that (unknown) (no (unknown) (unknown) On 07/23/2021, we (units (unknown) date) initiated Avastin unknown) once every 3 weeks. Patient overall has (unknown) (no (unknown) (unknown) Oncological (units (un known) date) History Summary: unknown) (unknown) (no (unknown) (unknown) Other endoscopy of (units (unknown) date) small intestine unknown) (12/01/11) (unknown) (no (unknown) (unknown) Other x-ray of (units (unknown) date) cervical spine unknown) (10/19/12) (unknown) (no (unknown) (unknown) Other: (units (unkno wn) date) unknown) (unknown) (no (unknown) (unknown) PN -Subjective (units (unknown) date) unknown) (unknown) (no (unknown) (unknown) Patient started (units (unknown) date) Avastin on unknown) 07/24/2019 and continues pembrolizumab. (unknown) (no (unknown) (unknown) Patient underwent (units (unknown) date) MRI of the brain unknown) 11/18/2020 that showed no evidence of (unknown) (no (unknown) (unknown) Patient: (units (unkno wn) date) Miladys Díaz unknown) MR#: [id number] (unknown) (no (unknown) (unknown) Penicillins (units (un known) date) Allergy Severe unknown) passed out Verified 12/09/20 07:05 (unknown) (no (unknown) (unknown) Plan: (units (unkno wn) date) unknown) (unknown) (no (unknown) (unknown) Potassium 3.9 (units (unknown) date) mmol/L (3.4-5.1) unknown) 07/23/21 10:25 (unknown) (no (unknown) (unknown) Procedures (units (unk nown) date) unknown) (unknown) (no (unknown) (unknown) Provider: (units (unkn own) date) Willy Iglesias MD unknown) (unknown) (no (unknown) (unknown) Psychiatric: (units (u nknown) date) normal affect; unknown) normal thought process. (unknown) (no (unknown) (unknown) RDW 15.4 % (units (un known) date) (11.6-14.8) H unknown) 08/13/21 08:50 (unknown) (no (unknown) (unknown) RN visit only in 3 (units (unknown) date) weeks for unknown) pembrolizuamb/avast in (unknown) (no (unknown) (unknown) ROS1 and BRAF. The (units (unknown) date) cancer does have unknown) high PD-L1 expression. He underwent (unknown) (no (unknown) (unknown) RTC in 6 weeks for (units (unknown) date) follow up visit unknown) (unknown) (no (unknown) (unknown) Random Cortisol (units (unknown) date) 14.0 ug/dL unknown) 01/24/19 11:25 (unknown) (no (unknown) (unknown) Respiratory: (units (u nknown) date) Significantly unknown) decreased breathing sound heard over on the right (unknown) (no (unknown) (unknown) Results (units (unkno wn) date) unknown) (unknown) (no (unknown) (unknown) Rx (units (unkno wn) date) unknown) (unknown) (no (unknown) (unknown) SR Cardiovascular (units (unknown) date) issues: Shortness unknown) of breath with activity or lying flat (unknown) (no (unknown) (unknown) SR Constitution: (units (unknown) date) Fatigue/Malaise unknown) (unknown) (no (unknown) (unknown) SR Endocrine (units (u nknown) date) issues: Cold unknown) intolerance (unknown) (no (unknown) (unknown) SR (units (unkno wn) date) Gastrointestinal unknown) issues: Vomiting (unknown) (no (unknown) (unknown) SR Musculoskeletal (units (unknown) date) issues: Muscle unknown) weakness (unknown) (no (unknown) (unknown) SR Neuro issues: (units (unknown) date) Headache, Tremors unknown) or shaking (unknown) (no (unknown) (unknown) SR Skin issues: (units (unknown) date) Skin rash or unknown) itching (unknown) (no (unknown) (unknown) SR ears, nose, (units (unknown) date) mouth, throat unknown) issues: Cough (unknown) (no (unknown) (unknown) SR eye issues: (units (unknown) date) Vision changes unknown) (unknown) (no (unknown) (unknown) SR respiratory (units (unknown) date) issues: Cough, unknown) Shortness of breath (unknown) (no (unknown) (unknown) Signed (units (unkno wn) date) By:<Electronically unknown) signed by Willy Iglesias MD>08/13/21 1301 (unknown) (no (unknown) (unknown) Sodium 134 mmol/L (units (unknown) date) (137-145) L unknown) 07/23/21 10:25 (unknown) (no (unknown) (unknown) TSH 2.82 uIU/mL (units (unknown) date) (0.47-4.68) unknown) 07/23/21 10:25 (unknown) (no (unknown) (unknown) Total Bilirubin (units (unknown) date) 0.8 mg/dL (0.2-1.3) unknown) 07/23/21 10:25 (unknown) (no (unknown) (unknown) Total Protein 6.6 (units (unknown) date) g/dL (6.3-8.2) unknown) 07/23/21 10:25 (unknown) (no (unknown) (unknown) Treatment Summary (units (unknown) date) unknown) (unknown) (no (unknown) (unknown) VITAMIN D (Vitamin (units (unknown) date) D3) 4,000 unit PO unknown) DAILY ##0 10/11/12 06/11/21 History (unknown) (no (unknown) (unknown) Vital signs: (units (u nknown) date) unknown) (unknown) (no (unknown) (unknown) Weight 80.5 kg (units (unknown) date) unknown) (unknown) (no (unknown) (unknown) [DIALYVITE] 100 mg (units (unknown) date) PO QDAY ##0 unknown) 10/11/12 06/11/21 History (unknown) (no (unknown) (unknown) [Endoscopic] (units (u nknown) date) polypectomy of unknown) rectum (12/01/11) (unknown) (no (unknown) (unknown) abnormal right (units (unknown) date) axillary lymph unknown) nodes, new left upper lung nodule, and increasing (unknown) (no (unknown) (unknown) acetaminophen 325 (units (unknown) date) mg tablet 650 mg PO unknown) Q4H PRN Pain, Moderate 06/12/20 06/11/21 (unknown) (no (unknown) (unknown) acid 0.8 mg tablet (units (unknown) date) (Kristal-Braden) unknown) (unknown) (no (unknown) (unknown) aerosol inhaler (units (unknown) date) (ProAir HFA) unknown) (unknown) (no (unknown) (unknown) albuterol sulfate (units (unknown) date) 1.25 mg/3 mL 1.25 unknown) mg (3 mL) inhalation Q4-6H 01/08/19 06/11/21 (unknown) (no (unknown) (unknown) albuterol sulfate (units (unknown) date) 90 mcg/actuation 2 unknown) puff inhalation Q4-6H 05/09/18 06/11/21 (unknown) (no (unknown) (unknown) appropriate. Will (units (unknown) date) proceed with unknown) scheduled treatment with pembrolizumab/Avast in. (unknown) (no (unknown) (unknown) as well as (units (unk nown) date) enlarged left unknown) retroperitoneal lymph node (unknown) (no (unknown) (unknown) aspirin 81 mg (units ( unknown) date) tablet 81 mg PO unknown) DAILY 06/12/20 06/11/21 History (unknown) (no (unknown) (unknown) atorvastatin 80 mg (units (unknown) date) tablet 40 mg PO unknown) DAILY 06/12/20 06/11/21 History (unknown) (no (unknown) (unknown) blister powder for (units (unknown) date) inhalation unknown) (unknown) (no (unknown) (unknown) brain metastasis. (units (unknown) date) His cancer is unknown) positive for KRAS, but negative for EGFR, ALK, (unknown) (no (unknown) (unknown) brinzolamide 1 (units (unknown) date) %-brimonidine 0.2 % unknown) 1 drp ophthalmic (eye) BID 06/12/20 06/11/21 (unknown) (no (unknown) (unknown) cancer here for (units (unknown) date) scheduled follow up unknown) visit. (unknown) (no (unknown) (unknown) cinnamon (units (unkno wn) date) bark-chromium 1 cap unknown) PO DAILY 09/25/20 06/11/21 History (unknown) (no (unknown) (unknown) codeine AdvReac (units (unknown) date) Intermediate unknown) Vomiting Verified 12/09/20 07:05 (unknown) (no (unknown) (unknown) collapse/consolida (units (unknown) date) tion within the unknown) right middle and lower lobes, new left (unknown) (no (unknown) (unknown) day. Patient will (units (unknown) date) continue follow-up unknown) with Nephrology and his primary care (unknown) (no (unknown) (unknown) docusate sodium (units (unknown) date) 100 mg capsule 100 unknown) mg PO BID 06/12/20 06/11/21 History (unknown) (no (unknown) (unknown) doxycycline (units (un known) date) hyclate 100 mg unknown) capsule 100 mg PO BID #20 caps 04/17/21 06/11/21 Rx (unknown) (no (unknown) (unknown) enlarged subcarinal (units (unknown) date) lymph node and unknown) abnormal appearing right axillary lymph nodes (unknown) (no (unknown) (unknown) eye (units (unkno wn) date) drops,suspension unknown) (Simbrinza) (unknown) (no (unknown) (unknown) found to have new (units (unknown) date) right pleural unknown) effusion requiring right thoracentesis on (unknown) (no (unknown) (unknown) gabapentin 100 mg (units (unknown) date) tablet 100 mg PO unknown) BEDTIME 09/25/20 06/11/21 History (unknown) (no (unknown) (unknown) his in terms (units (unknown) date) of the blood unknown) pressure. Patient is taking metoprolol once a (unknown) (no (unknown) (unknown) intermittent (units (u nknown) date) episodes of unknown) shortness of breath, but no chest pain. He denies any (unknown) (no (unknown) (unknown) ketoconazole 2 % (units (unknown) date) topical cream 1 unknown) applic topical BID 05/09/18 06/11/21 History (unknown) (no (unknown) (unknown) levothyroxine 200 (units (unknown) date) mcg tablet 200 mcg unknown) PO DAILY 90 days #1 tab 04/30/21 06/11/21 (unknown) (no (unknown) (unknown) loratadine 10 mg (units (unknown) date) capsule 10 mg PO unknown) DAILY 05/09/18 06/11/21 History (unknown) (no (unknown) (unknown) metoprolol (units (unk nown) date) tartrate 25 mg unknown) tablet 12.5 mg PO PRN PRN Hypertension 06/12/20 (unknown) (no (unknown) (unknown) metoprolol (units (unk nown) date) tartrate 25 mg unknown) tablet 25 mg PO BEDTIME 08/13/21 08/13/21 History (unknown) (no (unknown) (unknown) mg capsule (units (unk nown) date) unknown) (unknown) (no (unknown) (unknown) moderate (units (unkno wn) date) centrilobular unknown) emphysema and stable chronic pericardial thickening. (unknown) (no (unknown) (unknown) months before we (units (unknown) date) proceed with next unknown) surveillance imaging studies to evaluate the (unknown) (no (unknown) (unknown) morphine AdvReac (units (unknown) date) Vomiting Verified unknown) 12/09/20 07:05 (unknown) (no (unknown) (unknown) new headache. He (units (unknown) date) is experiencing unknown) fatigue. No rashes, and no diarrhea. (unknown) (no (unknown) (unknown) olanzapine 5 mg (units (unknown) date) tablet (Zyprexa) 5 unknown) mg PO QDAY ##0 10/11/12 06/11/21 History (unknown) (no (unknown) (unknown) paroxetine HCl 20 (units (unknown) date) mg tablet (Paxil) unknown) 20 mg PO QDAY ##0 10/11/12 06/11/21 History (unknown) (no (unknown) (unknown) picolinate-ALA 500 (units (unknown) date) mg-100 mcg-150 unknown) (unknown) (no (unknown) (unknown) pioglitazone 45 mg (units (unknown) date) tablet 45 mg PO unknown) DAILY 06/12/20 06/11/21 History (unknown) (no (unknown) (unknown) progression (units (un known) date) involving right unknown) pleural space, increasing subcarinal lymph node, (unknown) (no (unknown) (unknown) provider for blood (units (unknown) date) pressure. Patient unknown) denies any worsening shortness of breath. (unknown) (no (unknown) (unknown) pulmonary nodule (units (unknown) date) and a previously unknown) visualized pulmonary nodule unchanged, (unknown) (no (unknown) (unknown) radiation to the (units (unknown) date) brain. He has been unknown) on immunotherapy with pembrolizumab since (unknown) (no (unknown) (unknown) recently. Patient (units (unknown) date) reports no new unknown) bleeding problems. (unknown) (no (unknown) (unknown) recurrence or (units (u nknown) date) metastasis. unknown) Resection cavity and associated gliosis have remained (unknown) (no (unknown) (unknown) resection of a (units (unknown) date) right frontal brain unknown) tumor in February 2018, and stereotactic (unknown) (no (unknown) (unknown) response to the (units (unknown) date) treatment. unknown) Reviewed the labs from today. CBC and CMP are (unknown) (no (unknown) (unknown) retroperitoneal (units (unknown) date) lymph nodes unknown) (unknown) (no (unknown) (unknown) right pleural (units (u nknown) date) effusion with unknown) atelectasis of the right lower lobe. In addition it (unknown) (no (unknown) (unknown) sevelamer (units (unkn own) date) carbonate 800 mg unknown) tablet 800 mg PO DAILY ##0 10/11/12 06/11/21 History (unknown) (no (unknown) (unknown) showed bilateral (units (unknown) date) solid and subsolid unknown) pulmonary nodules that have increased in (unknown) (no (unknown) (unknown) showed interval (units (unknown) date) increase of the unknown) right pleural effusion and increased (unknown) (no (unknown) (unknown) side of the lung. (units (unknown) date) Rhonchi is and unknown) crackles heard in both lungs. Mild scattered (unknown) (no (unknown) (unknown) size when compared (units (unknown) date) to the prior study unknown) from 09/09/2020. It showed mild to (unknown) (no (unknown) (unknown) solution for (units (u nknown) date) nebulization PRN unknown) bronchospasm #75 mL (unknown) (no (unknown) (unknown) stable. 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 (unknown) (no (unknown) (unknown) stereotactic (units (u nknown) date) radiation to the unknown) brain. (unknown) (no (unknown) (unknown) the shortness of (units (unknown) date) breath has improved unknown) significantly. (unknown) (no (unknown) (unknown) tolerated quite (units (unknown) date) well. I talked unknown) with the patient that I will treat for 2-3 (unknown) (no (unknown) (unknown) travoprost 0.004 % (units (unknown) date) eye drops 1 drp unknown) ophthalmic (eye) BEDTIME 06/12/20 06/11/21 (unknown) (no (unknown) (unknown) umeclidinium 62.5 (units (unknown) date) mcg/actuation 1 inh unknown) inhalation DAILY 05/09/18 06/11/21 History (unknown) (no (unknown) (unknown) vitamin B (units (unkn own) date) complex-vitamin unknown) C-folic 1 tab DAILY 09/25/20 06/11/21 History (unknown) (no (unknown) (unknown) wheezes heard. (units (unknown) date) unknown) (unknown) (no (unknown) (unknown) with (units (unkno wn) date) pembrolizumab, unknown) repeat CT chest abdomen pelvis on 05/28/2021 showed disease (unknown) (no (unknown) (unknown) with removal of (units (unknown) date) 1350 cc of bloody unknown) fluid. After the procedure, patient said that (unknown) (no (unknown) (unknown) without contrast (units (unknown) date) on April 16, unknown) 2021. The scan showed new small to moderate Result panel 16 (unknown) (no date) (unknown) (unknown) 0 /uL (unkn own) (unknown) (no date) (unknown) (unknown) 0.8 % (unkn own) (unknown) (no date) (unknown) (unknown) 1.9 % (unkn own) (unknown) (no date) (unknown) (unknown) 100 /uL (unkn own) (unknown) (no date) (unknown) (unknown) 11.1 g/dL (unkn own) (unknown) (no date) (unknown) (unknown) 15.6 % (unkn own) (unknown) (no date) (unknown) (unknown) 3.32 X10 6/uL (unkn own) (unknown) (no date) (unknown) (unknown) 32.7 % (unkn own) (unknown) (no date) (unknown) (unknown) 33.3 PG (unkn own) (unknown) (no date) (unknown) (unknown) 33.8 % (unkn own) (unknown) (no date) (unknown) (unknown) 3600 /uL (unkn own) (unknown) (no date) (unknown) (unknown) 4.5 X10 3/uL (unkn own) (unknown) (no date) (unknown) (unknown) 400 /uL (unkn own) (unknown) (no date) (unknown) (unknown) 400 /uL (unkn own) (unknown) (no date) (unknown) (unknown) 79.6 % (unkn own) (unknown) (no date) (unknown) (unknown) 8.4 % (unkn own) (unknown) (no date) (unknown) (unknown) 9.3 % (unkn own) (unknown) (no date) (unknown) (unknown) 94 X10 3/uL (unkn own) (unknown) (no date) (unknown) (unknown) 98.3 fL (unkn own) Result panel 17 (unknown) (no date) (unknown) (unknown) 1.1 mg/dL (unkn own) (unknown) (no date) (unknown) (unknown) 1.4 (units unknown) (unknown) (unknown) (no date) (unknown) (unknown) 137 mmol/L (unkn own) (unknown) (no date) (unknown) (unknown) 144 mg/dL (unkn own) (unknown) (no date) (unknown) (unknown) 18 mL/min (unkn own) (unknown) (no date) (unknown) (unknown) 2.7 g/dL (unkn own) (unknown) (no date) (unknown) (unknown) 21 IU/L (unkn own) (unknown) (no date) (unknown) (unknown) 28 mg/dL (unkn own) (unknown) (no date) (unknown) (unknown) 285 U/L (unkn own) (unknown) (no date) (unknown) (unknown) 3.6 mmol/L (unkn own) (unknown) (no date) (unknown) (unknown) 3.62 mg/dL (unkn own) (unknown) (no date) (unknown) (unknown) 3.7 g/dL (unkn own) (unknown) (no date) (unknown) (unknown) 33 mmol/L (unkn own) (unknown) (no date) (unknown) (unknown) 38 IU/L (unkn own) (unknown) (no date) (unknown) (unknown) 6.4 g/dL (unkn own) (unknown) (no date) (unknown) (unknown) 7.7 (units unknown) (unknown) (unknown) (no date) (unknown) (unknown) 8.9 mg/dL (unkn own) (unknown) (no date) (unknown) (unknown) 94 mmol/L (unkn own) Result panel 18 (unknown) (no date) (unknown) (unknown) 17.5 uIU/mL (unkn own) Result panel 19 (unknown) (no date) (unknown) (unknown) 0 /uL (unkn own) (unknown) (no date) (unknown) (unknown) 1.2 % (unkn own) (unknown) (no date) (unknown) (unknown) 1.9 % (unkn own) (unknown) (no date) (unknown) (unknown) 100 /uL (unkn own) (unknown) (no date) (unknown) (unknown) 11.0 g/dL (unkn own) (unknown) (no date) (unknown) (unknown) 11.6 % (unkn own) (unknown) (no date) (unknown) (unknown) 16.0 % (unkn own) (unknown) (no date) (unknown) (unknown) 2800 /uL (unkn own) (unknown) (no date) (unknown) (unknown) 3.34 X10 6/uL (unkn own) (unknown) (no date) (unknown) (unknown) 3.7 X10 3/uL (unkn own) (unknown) (no date) (unknown) (unknown) 300 /uL (unkn own) (unknown) (no date) (unknown) (unknown) 32.6 % (unkn own) (unknown) (no date) (unknown) (unknown) 32.9 PG (unkn own) (unknown) (no date) (unknown) (unknown) 33.8 % (unkn own) (unknown) (no date) (unknown) (unknown) 400 /uL (unkn own) (unknown) (no date) (unknown) (unknown) 76.3 % (unkn own) (unknown) (no date) (unknown) (unknown) 87 X10 3/uL (unkn own) (unknown) (no date) (unknown) (unknown) 9.0 % (unkn own) (unknown) (no date) (unknown) (unknown) 97.4 fL (unkn own) Result panel 20 (unknown) (no date) (unknown) (unknown) 1.1 mg/dL (unkn own) (unknown) (no date) (unknown) (unknown) 1.3 (units unknown) (unknown) (unknown) (no date) (unknown) (unknown) 134 mg/dL (unkn own) (unknown) (no date) (unknown) (unknown) 136 mmol/L (unkn own) (unknown) (no date) (unknown) (unknown) 16 mL/min (unkn own) (unknown) (no date) (unknown) (unknown) 2.8 g/dL (unkn own) (unknown) (no date) (unknown) (unknown) 20 IU/L (unkn own) (unknown) (no date) (unknown) (unknown) 277 U/L (unkn own) (unknown) (no date) (unknown) (unknown) 3.6 g/dL (unkn own) (unknown) (no date) (unknown) (unknown) 3.8 mmol/L (unkn own) (unknown) (no date) (unknown) (unknown) 3.81 mg/dL (unkn own) (unknown) (no date) (unknown) (unknown) 32 mg/dL (unkn own) (unknown) (no date) (unknown) (unknown) 32 mmol/L (unkn own) (unknown) (no date) (unknown) (unknown) 38 IU/L (unkn own) (unknown) (no date) (unknown) (unknown) 6.4 g/dL (unkn own) (unknown) (no date) (unknown) (unknown) 8.4 (units unknown) (unknown) (unknown) (no date) (unknown) (unknown) 9.0 mg/dL (unkn own) (unknown) (no date) (unknown) (unknown) 93 mmol/L (unkn own) Result panel 21 (unknown) (no (unknown) (unknown) (no value) (units (unk nown) date) unknown) (unknown) (no (unknown) (unknown) Date of Service: (units (unknown) date) 09/24/21 unknown) (unknown) (no (unknown) (unknown) (no value) (units (unk nown) date) unknown) (unknown) (no (unknown) (unknown) Allergies (units (unkn own) date) unknown) (unknown) (no (unknown) (unknown) Home Medications (units (unknown) date) unknown) (unknown) (no (unknown) (unknown) Intake and Output (units (unknown) date) unknown) (unknown) (no (unknown) (unknown) [facility] (units (unknown) date) [address] unknown) [place] [address] (unknown) (no (unknown) (unknown) Laboratory Last (units (unknown) date) Values unknown) (unknown) (no (unknown) (unknown) Oncology Progress (units (unknown) date) Note unknown) (unknown) (no (unknown) (unknown) Patient Weight (units (unknown) date) unknown) (unknown) (no (unknown) (unknown) Vital Signs (units (un known) date) unknown) (unknown) (no (unknown) (unknown) (no value) (units (unk nown) date) unknown) (unknown) (no (unknown) (unknown) Temp Pulse Resp BP (units (unknown) date) Pulse Ox unknown) (unknown) (no (unknown) (unknown) Weight 77.7 kg (units (unknown) date) unknown) (unknown) (no (unknown) (unknown) 09/23/21 09/24/21 (units (unknown) date) 09/24/21 unknown) (unknown) (no (unknown) (unknown) 09/24/21 (units (unkno wn) date) unknown) (unknown) (no (unknown) (unknown) 09/24/21 10:01 (units (unknown) date) 96.7 F L 60 18 unknown) 157/80 H 99 (unknown) (no (unknown) (unknown) 23:59 (units (unkno wn) date) unknown) (unknown) (no (unknown) (unknown) 23:59 07:59 15:59 (units (unknown) date) unknown) (unknown) (no (unknown) (unknown) Medication (units (unk nown) date) Instructions unknown) Recorded Confirmed Type (unknown) (no (unknown) (unknown) Rx (units (unkno wn) date) unknown) (unknown) (no (unknown) (unknown) (1) 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 unknown) (unknown) (no (unknown) (unknown) (Incruse Ellipta) (units (unknown) date) unknown) (unknown) (no (unknown) (unknown) (Renvela) (units (unkn own) date) unknown) (unknown) (no (unknown) (unknown) - Date of Visit (units (unknown) date) unknown) (unknown) (no (unknown) (unknown) - Imaging (units (unkn own) date) unknown) (unknown) (no (unknown) (unknown) - Labs (units (unkno wn) date) unknown) (unknown) (no (unknown) (unknown) - Patient (units (unkn own) date) Self-Reported unknown) Symptoms (unknown) (no (unknown) (unknown) - ROS (units (unkno wn) date) unknown) (unknown) (no (unknown) (unknown) [id number] (units (unkno wn) date) unknown) (unknown) (no (unknown) (unknown) 05/23/2018. (units (un known) date) unknown) (unknown) (no (unknown) (unknown) 1. 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 (unknown) (no (unknown) (unknown) 2. Stereotactic (units (unknown) date) radiation to the unknown) brain (unknown) (no (unknown) (unknown) 04/01/2021 with (units ( unknown) date) removal of 1350 cc unknown) of bloody fluid. Despite continued treatment (unknown) (no (unknown) (unknown) 3. Pembrolizumab (units (unknown) date) since 05/23/2018 unknown) (unknown) (no (unknown) (unknown) 4. 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, high PD- (unknown) (no (unknown) (unknown) ALT 20 IU/L (<50) (units (unknown) date) 09/24/21 09:40 unknown) (unknown) (no (unknown) (unknown) AST 38 IU/L (units (u nknown) date) (17-59) 09/24/21 unknown) 09:40 (unknown) (no (unknown) (unknown) Abdomen: Soft, (units (unknown) date) NTND, BS normal, no unknown) palpable organomegaly (unknown) (no (unknown) (unknown) According to (units (u nknown) date) patient's , unknown) patient has not had any respiratory 'attack' (unknown) (no (unknown) (unknown) Additional (units (unk nown) date) studies: unknown) (unknown) (no (unknown) (unknown) Age/Sex: 70 / M (units (unknown) date) unknown) (unknown) (no (unknown) (unknown) Albumin 3.6 g/dL (units (unknown) date) (3.5-5.0) unknown) 09/24/21 09:40 (unknown) (no (unknown) (unknown) Albumin/Globulin (units (unknown) date) Ratio 1.3 unknown) (1.0-2.8) 09/24/21 09:40 (unknown) (no (unknown) (unknown) Alkaline (units (unkno wn) date) Phosphatase 277 unknown) U/L (38-126) H 09/24/21 09:40 (unknown) (no (unknown) (unknown) All Systems: (units (u nknown) date) reviewed and no unknown) additional remarkable complaints except as stated (unknown) (no (unknown) (unknown) Allergy/AdvReac (units (unknown) date) Type Severity unknown) Reaction Status Date / Time (unknown) (no (unknown) (unknown) Antibody Screen (units (unknown) date) Negative 07/10/20 unknown) 12:55 (unknown) (no (unknown) (unknown) Assessment and (units (unknown) date) Plan unknown) (unknown) (no (unknown) (unknown) Assessment: (units (un known) date) unknown) (unknown) (no (unknown) (unknown) BUN 32 mg/dL (units ( unknown) date) (9-20) H 09/24/21 unknown) 09:40 (unknown) (no (unknown) (unknown) BUN/Creatinine (units (unknown) date) Ratio 8.4 (6-22) unknown) 09/24/21 09:40 (unknown) (no (unknown) (unknown) Baso # (Auto) 0 (units (unknown) date) /uL (0-100) unknown) 09/24/21 09:40 (unknown) (no (unknown) (unknown) Baso % (Auto) 1.2 (units (unknown) date) % (0-2) 09/24/21 unknown) 09:40 (unknown) (no (unknown) (unknown) Because of (units (unk nown) date) worsening shortness unknown) of breath, patient underwent CT of the chest (unknown) (no (unknown) (unknown) Blood Type A (units ( unknown) date) Positive 07/10/20 unknown) 12:55 (unknown) (no (unknown) (unknown) Borderline (units (unk nown) date) axillary lymph unknown) nodes noted slightly worse on the right. (unknown) (no (unknown) (unknown) CALCIUM ACETATE (units (unknown) date) (PHOSLO-) 667 mg PO unknown) QDAY ##0 10/11/12 09/24/21 History (unknown) (no (unknown) (unknown) Calcium 9.0 mg/dL (units (unknown) date) (8.4-10.2) unknown) 09/24/21 09:40 (unknown) (no (unknown) (unknown) Call for any (units (u nknown) date) concerns or unknown) questions. (unknown) (no (unknown) (unknown) Carbon Dioxide 32 (units (unknown) date) mmol/L (22-32) unknown) 09/24/21 09:40 (unknown) (no (unknown) (unknown) Cardiovascular: (units (unknown) date) RRR, S1 and S2 unknown) normal, no M/G/R. (unknown) (no (unknown) (unknown) Chief Complaint: (units (unknown) date) Héctor is a 70 year unknown) old with metastatic adenocarcinoma of the lung (unknown) (no (unknown) (unknown) Chloride 93 (units (u nknown) date) mmol/L (98-107) L unknown) 09/24/21 09:40 (unknown) (no (unknown) (unknown) Clinically, (units (un known) date) patient has been unknown) doing well. Patient has been followed closely by (unknown) (no (unknown) (unknown) Creatinine 3.81 (units (unknown) date) mg/dL (0.66-1.25) unknown) H 09/24/21 09:40 (unknown) (no (unknown) (unknown) Crossmatch See (units (unknown) date) Detail 07/10/20 unknown) 12:55 (unknown) (no (unknown) (unknown) : 1950 (units (unknown) date) Acct:[id number] unknown) (unknown) (no (unknown) (unknown) Date of visit: (units (unknown) date) 09/24/21 unknown) (unknown) (no (unknown) (unknown) Miladys is a (units (un known) date) 70-year-old man unknown) with metastatic adenocarcinoma of the lung with (unknown) (no (unknown) (unknown) ECOG 1 (units (unkno wn) date) unknown) (unknown) (no (unknown) (unknown) Endoscopic (units (unk nown) date) polypectomy of unknown) large intestine (12/01/11) (unknown) (no (unknown) (unknown) Eos # (Auto) 100 (units (unknown) date) /uL (0-450) unknown) 09/24/21 09:40 (unknown) (no (unknown) (unknown) Eos % (Auto) 1.9 (units (unknown) date) % (2-4) L unknown) 09/24/21 09:40 (unknown) (no (unknown) (unknown) Estimated GFR 16 (units (unknown) date) mL/min (>60) L unknown) 09/24/21 09:40 (unknown) (no (unknown) (unknown) Exam (units (unkno wn) date) unknown) (unknown) (no (unknown) (unknown) Extremities: No LE (units (unknown) date) pitting edema. unknown) (unknown) (no (unknown) (unknown) Free T4 2.20 (units ( unknown) date) ng/dL (0.78-2.19) unknown) H 04/19/19 13:40 (unknown) (no (unknown) (unknown) Gen: WDWN, NAD, (units (unknown) date) pleasant and unknown) cooperative. (unknown) (no (unknown) (unknown) GenericComposite[P (units (unknown) date) lt Count 87 unknown) X10^3/uL (150-400) L 09/24/21 09:40 ] (unknown) (no (unknown) (unknown) GenericComposite[R (units (unknown) date) BC 3.34 X10^6/uL unknown) (4.5-5.9) L 09/24/21 09:40 ] (unknown) (no (unknown) (unknown) GenericComposite[W (units (unknown) date) BC 3.7 X10^3/uL unknown) (4.5-11.0) L 09/24/21 09:40 ] (unknown) (no (unknown) (unknown) Globulin 2.8 g/dL (units (unknown) date) (1.7-4.1) unknown) 09/24/21 09:40 (unknown) (no (unknown) (unknown) Glucose 134 mg/dL (units (unknown) date) (80-110) H unknown) 09/24/21 09:40 (unknown) (no (unknown) (unknown) HEENT: NCAT, (units ( unknown) date) EOMI, PERRLA, unknown) anicteric sclera. (unknown) (no (unknown) (unknown) Hct 32.6 % (units (un known) date) (41-53) L unknown) 09/24/21 09:40 (unknown) (no (unknown) (unknown) He came in today (units (unknown) date) accompanied by her unknown) family member. The patient is complaining (unknown) (no (unknown) (unknown) He has been on (units (unknown) date) immunotherapy with unknown) pembrolizumab since 05/23/2018. 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 He was (unknown) (no (unknown) (unknown) Injection of other (units (unknown) date) agent into spinal unknown) canal (10/19/12) (unknown) (no (unknown) (unknown) Injection of (units (u nknown) date) steroid (10/19/12) unknown) (unknown) (no (unknown) (unknown) Interval history: (units (unknown) date) unknown) (unknown) (no (unknown) (unknown) L1, positive KRAS, (units (unknown) date) and negative for unknown) EGFR/ALK/ROS-1/BRAF . (unknown) (no (unknown) (unknown) Lymph # (Auto) (units (unknown) date) 300 /uL (8293-6000) unknown) L 09/24/21 09:40 (unknown) (no (unknown) (unknown) Lymph % (Auto) (units (unknown) date) 9.0 % (25-40) L unknown) 09/24/21 09:40 (unknown) (no (unknown) (unknown) Lymphatic: no (units ( unknown) date) palpable lymph unknown) nodes in the neck, or axillae (unknown) (no (unknown) (unknown) MCH 32.9 PG (units (u nknown) date) (26-34) 09/24/21 unknown) 09:40 (unknown) (no (unknown) (unknown) MCHC 33.8 % (units (u nknown) date) (30-36) 09/24/21 unknown) 09:40 (unknown) (no (unknown) (unknown) MCV 97.4 fL (units (u nknown) date) (80-100) 09/24/21 unknown) 09:40 (unknown) (no (unknown) (unknown) [place] # (Auto) 400 (units (unknown) date) /uL (0-900) unknown) 09/24/21 09:40 (unknown) (no (unknown) (unknown) [place] % (Auto) (units ( unknown) date) 11.6 % (3-14) unknown) 09/24/21 09:40 (unknown) (no (unknown) (unknown) Narrative: (units (unk nown) date) unknown) (unknown) (no (unknown) (unknown) Neck: Supple, No (units (unknown) date) palpable unknown) thyromegaly or lymphadenopathy. (unknown) (no (unknown) (unknown) Neurological: AOx3, (units (unknown) date) CN II-XII grossly unknown) intact. No focal motor or sensory deficit. (unknown) (no (unknown) (unknown) Neut # (Auto) (units ( unknown) date) 2800 /uL unknown) (1780-6700) 09/24/21 09:40 (unknown) (no (unknown) (unknown) Neut % (Auto) (units ( unknown) date) 76.3 % (50-75) H unknown) 09/24/21 09:40 (unknown) (no (unknown) (unknown) OMEPRAZOLE 40 mg (units (unknown) date) PO BID ##0 10/11/12 unknown) 09/24/21 History (unknown) (no (unknown) (unknown) Ok to proceed to (units (unknown) date) Pembolizumab today unknown) (unknown) (no (unknown) (unknown) On 04/30/2021, we (units (unknown) date) restarted unknown) pembrolizumab 200 mg iv q21d. He has tolerated well. (unknown) (no (unknown) (unknown) On 04/21/2021, (units (u nknown) date) patient underwent unknown) successful ultrasound-guided right thoracentesis (unknown) (no (unknown) (unknown) On 05/28/2021, (units ( unknown) date) patient underwent unknown) CT chest abdomen and pelvis with contrast that (unknown) (no (unknown) (unknown) On 07/23/2021, we (units (unknown) date) initiated Avastin unknown) once every 3 weeks. Patient overall has (unknown) (no (unknown) (unknown) Oncological (units (un known) date) History Summary: unknown) (unknown) (no (unknown) (unknown) Other endoscopy of (units (unknown) date) small intestine unknown) (12/01/11) (unknown) (no (unknown) (unknown) Other x-ray of (units (unknown) date) cervical spine unknown) (10/19/12) (unknown) (no (unknown) (unknown) Other: (units (unkno wn) date) unknown) (unknown) (no (unknown) (unknown) PN -Subjective (units (unknown) date) unknown) (unknown) (no (unknown) (unknown) Patient started (units (unknown) date) Avastin on unknown) 07/24/2019 and continues pembrolizumab. (unknown) (no (unknown) (unknown) Patient underwent (units (unknown) date) MRI of the brain unknown) 11/18/2020 that showed no evidence of (unknown) (no (unknown) (unknown) Patient: (units (unkno wn) date) Miladys Díaz unknown) MR#: [id number] (unknown) (no (unknown) (unknown) Penicillins (units (un known) date) Allergy Severe unknown) passed out Verified 12/09/20 07:05 (unknown) (no (unknown) (unknown) Plan: (units (unkno wn) date) unknown) (unknown) (no (unknown) (unknown) Potassium 3.8 (units (unknown) date) mmol/L (3.4-5.1) unknown) 09/24/21 09:40 (unknown) (no (unknown) (unknown) Procedures (units (unk nown) date) unknown) (unknown) (no (unknown) (unknown) Provider: (units (unkn own) date) Willy Iglesias MD unknown) (unknown) (no (unknown) (unknown) Psychiatric: (units (u nknown) date) normal affect; unknown) normal thought process. (unknown) (no (unknown) (unknown) RDW 16.0 % (units (un known) date) (11.6-14.8) H unknown) 09/24/21 09:40 (unknown) (no (unknown) (unknown) RN visit only in 3 (units (unknown) date) weeks for unknown) pembrolizuamb/avast in (unknown) (no (unknown) (unknown) ROS1 and BRAF. The (units (unknown) date) cancer does have unknown) high PD-L1 expression. He underwent (unknown) (no (unknown) (unknown) RTC in 6 weeks for (units (unknown) date) follow up visit unknown) (unknown) (no (unknown) (unknown) Random Cortisol (units (unknown) date) 14.0 ug/dL unknown) 01/24/19 11:25 (unknown) (no (unknown) (unknown) Respiratory: (units (u nknown) date) Significantly unknown) decreased breathing sound heard over on the right (unknown) (no (unknown) (unknown) Results (units (unkno wn) date) unknown) (unknown) (no (unknown) (unknown) Rx (units (unkno wn) date) unknown) (unknown) (no (unknown) (unknown) SR Cardiovascular (units (unknown) date) issues: Shortness unknown) of breath with activity or lying flat (unknown) (no (unknown) (unknown) SR Constitution: (units (unknown) date) Fatigue/Malaise unknown) (unknown) (no (unknown) (unknown) SR Endocrine (units (u nknown) date) issues: Cold unknown) intolerance (unknown) (no (unknown) (unknown) SR (units (unkno wn) date) Gastrointestinal unknown) issues: Vomiting (unknown) (no (unknown) (unknown) SR Musculoskeletal (units (unknown) date) issues: Muscle unknown) weakness, Cold hands or feet, Difficulty (unknown) (no (unknown) (unknown) SR Neuro issues: (units (unknown) date) Headache, Tremors unknown) or shaking (unknown) (no (unknown) (unknown) SR Skin issues: (units (unknown) date) Skin color changes unknown) (unknown) (no (unknown) (unknown) SR ears, nose, (units (unknown) date) mouth, throat unknown) issues: Cough (unknown) (no (unknown) (unknown) SR eye issues: (units (unknown) date) Vision changes unknown) (unknown) (no (unknown) (unknown) SR respiratory (units (unknown) date) issues: Cough, unknown) Shortness of breath, Difficulty breathing (unknown) (no (unknown) (unknown) Signed By: (units (unk nown) date) unknown) (unknown) (no (unknown) (unknown) Sodium 136 mmol/L (units (unknown) date) (137-145) L unknown) 09/24/21 09:40 (unknown) (no (unknown) (unknown) TSH 17.5 uIU/mL (units (unknown) date) (0.47-4.68) H unknown) 09/03/21 10:00 (unknown) (no (unknown) (unknown) Total Bilirubin (units (unknown) date) 1.1 mg/dL (0.2-1.3) unknown) 09/24/21 09:40 (unknown) (no (unknown) (unknown) Total Protein 6.4 (units (unknown) date) g/dL (6.3-8.2) unknown) 09/24/21 09:40 (unknown) (no (unknown) (unknown) Treatment Summary (units (unknown) date) unknown) (unknown) (no (unknown) (unknown) VITAMIN D (Vitamin (units (unknown) date) D3) 4,000 unit PO unknown) DAILY ##0 10/11/12 09/24/21 History (unknown) (no (unknown) (unknown) Vital signs: (units (u nknown) date) unknown) (unknown) (no (unknown) (unknown) Weight 77.7 kg (units (unknown) date) unknown) (unknown) (no (unknown) (unknown) [DIALYVITE] 100 mg (units (unknown) date) PO QDAY ##0 unknown) 10/11/12 09/24/21 History (unknown) (no (unknown) (unknown) [Endoscopic] (units (u nknown) date) polypectomy of unknown) rectum (12/01/11) (unknown) (no (unknown) (unknown) abnormal right (units (unknown) date) axillary lymph unknown) nodes, new left upper lung nodule, and increasing (unknown) (no (unknown) (unknown) acetaminophen 325 (units (unknown) date) mg tablet 650 mg PO unknown) Q4H PRN Pain, Moderate 06/12/20 09/24/21 (unknown) (no (unknown) (unknown) acid 0.8 mg tablet (units (unknown) date) (Kristal-Braden) unknown) (unknown) (no (unknown) (unknown) aerosol inhaler (units (unknown) date) (ProAir HFA) unknown) (unknown) (no (unknown) (unknown) albuterol sulfate (units (unknown) date) 1.25 mg/3 mL 1.25 unknown) mg (3 mL) inhalation Q4-6H 01/08/19 09/24/21 (unknown) (no (unknown) (unknown) albuterol sulfate (units (unknown) date) 90 mcg/actuation 2 unknown) puff inhalation Q4-6H 05/09/18 09/24/21 (unknown) (no (unknown) (unknown) appropriate. Will (units (unknown) date) proceed with unknown) scheduled treatment with pembrolizumab/Avast in. (unknown) (no (unknown) (unknown) as well as (units (unk nown) date) enlarged left unknown) retroperitoneal lymph node (unknown) (no (unknown) (unknown) aspirin 81 mg (units ( unknown) date) tablet 81 mg PO unknown) DAILY 06/12/20 09/24/21 History (unknown) (no (unknown) (unknown) atorvastatin 10 mg (units (unknown) date) tablet (Lipitor) 10 unknown) mg PO BID 09/24/21 09/24/21 History (unknown) (no (unknown) (unknown) atorvastatin 80 mg (units (unknown) date) tablet 40 mg PO unknown) DAILY 06/12/20 09/24/21 History (unknown) (no (unknown) (unknown) blister powder for (units (unknown) date) inhalation unknown) (unknown) (no (unknown) (unknown) brain metastasis. (units (unknown) date) His cancer is unknown) positive for KRAS, but negative for EGFR, ALK, (unknown) (no (unknown) (unknown) brinzolamide 1 (units (unknown) date) %-brimonidine 0.2 % unknown) 1 drp ophthalmic (eye) BID 06/12/20 09/24/21 (unknown) (no (unknown) (unknown) cancer here for (units (unknown) date) scheduled follow up unknown) visit. (unknown) (no (unknown) (unknown) cinnamon (units (unkno wn) date) bark-chromium 1 cap unknown) PO DAILY 09/25/20 09/24/21 History (unknown) (no (unknown) (unknown) codeine AdvReac (units (unknown) date) Intermediate unknown) Vomiting Verified 12/09/20 07:05 (unknown) (no (unknown) (unknown) collapse/consolida (units (unknown) date) tion within the unknown) right middle and lower lobes, new left (unknown) (no (unknown) (unknown) day. Patient will (units (unknown) date) continue follow-up unknown) with Nephrology and his primary care (unknown) (no (unknown) (unknown) docusate sodium (units (unknown) date) 100 mg capsule 100 unknown) mg PO BID 06/12/20 09/24/21 History (unknown) (no (unknown) (unknown) doxycycline (units (un known) date) hyclate 100 mg unknown) capsule 100 mg PO BID #20 caps 04/17/21 09/24/21 Rx (unknown) (no (unknown) (unknown) enlarged subcarinal (units (unknown) date) lymph node and unknown) abnormal appearing right axillary lymph nodes (unknown) (no (unknown) (unknown) eye (units (unkno wn) date) drops,suspension unknown) (Simbrinza) (unknown) (no (unknown) (unknown) found to have new (units (unknown) date) right pleural unknown) effusion requiring right thoracentesis on (unknown) (no (unknown) (unknown) gabapentin 100 mg (units (unknown) date) tablet 100 mg PO unknown) BEDTIME 09/25/20 09/24/21 History (unknown) (no (unknown) (unknown) his in terms (units (unknown) date) of the blood unknown) pressure. Patient is taking metoprolol once a (unknown) (no (unknown) (unknown) intermittent (units (u nknown) date) episodes of unknown) shortness of breath, but no chest pain. He denies any (unknown) (no (unknown) (unknown) ketoconazole 2 % (units (unknown) date) topical cream 1 unknown) applic topical BID 05/09/18 09/24/21 History (unknown) (no (unknown) (unknown) levothyroxine 200 (units (unknown) date) mcg tablet 200 mcg unknown) PO DAILY 90 days #1 tab 04/30/21 09/24/21 (unknown) (no (unknown) (unknown) loratadine 10 mg (units (unknown) date) capsule 10 mg PO unknown) DAILY 05/09/18 09/24/21 History (unknown) (no (unknown) (unknown) metoprolol (units (unk nown) date) tartrate 25 mg unknown) tablet 12.5 mg PO BID 06/12/20 09/24/21 History (unknown) (no (unknown) (unknown) mg capsule (units (unk nown) date) unknown) (unknown) (no (unknown) (unknown) moderate (units (unkno wn) date) centrilobular unknown) emphysema and stable chronic pericardial thickening. (unknown) (no (unknown) (unknown) months before we (units (unknown) date) proceed with next unknown) surveillance imaging studies to evaluate the (unknown) (no (unknown) (unknown) morphine AdvReac (units (unknown) date) Vomiting Verified unknown) 12/09/20 07:05 (unknown) (no (unknown) (unknown) new headache. He (units (unknown) date) is experiencing unknown) fatigue. No rashes, and no diarrhea. (unknown) (no (unknown) (unknown) olanzapine 5 mg (units (unknown) date) tablet (Zyprexa) 5 unknown) mg PO QDAY ##0 10/11/12 09/24/21 History (unknown) (no (unknown) (unknown) paroxetine HCl 20 (units (unknown) date) mg tablet (Paxil) unknown) 20 mg PO QDAY ##0 10/11/12 09/24/21 History (unknown) (no (unknown) (unknown) picolinate-ALA 500 (units (unknown) date) mg-100 mcg-150 unknown) (unknown) (no (unknown) (unknown) pioglitazone 45 mg (units (unknown) date) tablet 45 mg PO unknown) DAILY 06/12/20 09/24/21 History (unknown) (no (unknown) (unknown) progression (units (un known) date) involving right unknown) pleural space, increasing subcarinal lymph node, (unknown) (no (unknown) (unknown) provider for blood (units (unknown) date) pressure. Patient unknown) denies any worsening shortness of breath. (unknown) (no (unknown) (unknown) pulmonary nodule (units (unknown) date) and a previously unknown) visualized pulmonary nodule unchanged, (unknown) (no (unknown) (unknown) radiation to the (units (unknown) date) brain. He has been unknown) on immunotherapy with pembrolizumab since (unknown) (no (unknown) (unknown) recently. Patient (units (unknown) date) reports no new unknown) bleeding problems. (unknown) (no (unknown) (unknown) recurrence or (units (u nknown) date) metastasis. unknown) Resection cavity and associated gliosis have remained (unknown) (no (unknown) (unknown) resection of a (units (unknown) date) right frontal brain unknown) tumor in February 2018, and stereotactic (unknown) (no (unknown) (unknown) response to the (units (unknown) date) treatment. unknown) Reviewed the labs from today. CBC and CMP are (unknown) (no (unknown) (unknown) retroperitoneal (units (unknown) date) lymph nodes unknown) (unknown) (no (unknown) (unknown) right pleural (units (u nknown) date) effusion with unknown) atelectasis of the right lower lobe. In addition it (unknown) (no (unknown) (unknown) sevelamer (units (unkn own) date) carbonate 800 mg unknown) tablet 800 mg PO DAILY ##0 10/11/12 09/24/21 History (unknown) (no (unknown) (unknown) showed bilateral (units (unknown) date) solid and subsolid unknown) pulmonary nodules that have increased in (unknown) (no (unknown) (unknown) showed interval (units (unknown) date) increase of the unknown) right pleural effusion and increased (unknown) (no (unknown) (unknown) side of the lung. (units (unknown) date) Rhonchi is and unknown) crackles heard in both lungs. Mild scattered (unknown) (no (unknown) (unknown) size when compared (units (unknown) date) to the prior study unknown) from 09/09/2020. It showed mild to (unknown) (no (unknown) (unknown) solution for (units (u nknown) date) nebulization PRN unknown) bronchospasm #75 mL (unknown) (no (unknown) (unknown) stable. 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 (unknown) (no (unknown) (unknown) stereotactic (units (u nknown) date) radiation to the unknown) brain. (unknown) (no (unknown) (unknown) the shortness of (units (unknown) date) breath has improved unknown) significantly. (unknown) (no (unknown) (unknown) tolerated quite (units (unknown) date) well. I talked unknown) with the patient that I will treat for 2-3 (unknown) (no (unknown) (unknown) travoprost 0.004 % (units (unknown) date) eye drops 1 drp unknown) ophthalmic (eye) BEDTIME 06/12/20 09/24/21 (unknown) (no (unknown) (unknown) umeclidinium 62.5 (units (unknown) date) mcg/actuation 1 inh unknown) inhalation DAILY 05/09/18 09/24/21 History (unknown) (no (unknown) (unknown) vitamin B (units (unkn own) date) complex-vitamin unknown) C-folic 1 tab DAILY 09/25/20 09/24/21 History (unknown) (no (unknown) (unknown) walking (units (unkno wn) date) unknown) (unknown) (no (unknown) (unknown) wheezes heard. (units (unknown) date) unknown) (unknown) (no (unknown) (unknown) with (units (unkno wn) date) pembrolizumab, unknown) repeat CT chest abdomen pelvis on 05/28/2021 showed disease (unknown) (no (unknown) (unknown) with removal of (units (unknown) date) 1350 cc of bloody unknown) fluid. After the procedure, patient said that (unknown) (no (unknown) (unknown) without contrast (units (unknown) date) on April 16, unknown) 2021. The scan showed new small to moderate Result panel 22 (unknown) (no (unknown) (unknown) (no value) (units (unk nown) date) unknown) (unknown) (no (unknown) (unknown) Date of Service: (units (unknown) date) 09/24/21 unknown) (unknown) (no (unknown) (unknown) (no value) (units (unk nown) date) unknown) (unknown) (no (unknown) (unknown) Allergies (units (unkn own) date) unknown) (unknown) (no (unknown) (unknown) Home Medications (units (unknown) date) unknown) (unknown) (no (unknown) (unknown) Intake and Output (units (unknown) date) unknown) (unknown) (no (unknown) (unknown) [facility] (units (unknown) date) [address] unknown) [place] [address] (unknown) (no (unknown) (unknown) Laboratory Last (units (unknown) date) Values unknown) (unknown) (no (unknown) (unknown) Oncology Progress (units (unknown) date) Note unknown) (unknown) (no (unknown) (unknown) Patient Weight (units (unknown) date) unknown) (unknown) (no (unknown) (unknown) Vital Signs (units (un known) date) unknown) (unknown) (no (unknown) (unknown) (no value) (units (unk nown) date) unknown) (unknown) (no (unknown) (unknown) Temp Pulse Resp BP (units (unknown) date) Pulse Ox unknown) (unknown) (no (unknown) (unknown) Weight 77.7 kg (units (unknown) date) unknown) (unknown) (no (unknown) (unknown) 09/23/21 09/24/21 (units (unknown) date) 09/24/21 unknown) (unknown) (no (unknown) (unknown) 09/24/21 (units (unkno wn) date) unknown) (unknown) (no (unknown) (unknown) 09/24/21 10:01 (units (unknown) date) 96.7 F L 60 18 unknown) 157/80 H 99 (unknown) (no (unknown) (unknown) 23:59 (units (unkno wn) date) unknown) (unknown) (no (unknown) (unknown) 23:59 07:59 15:59 (units (unknown) date) unknown) (unknown) (no (unknown) (unknown) Medication (units (unk nown) date) Instructions unknown) Recorded Confirmed Type (unknown) (no (unknown) (unknown) Rx (units (unkno wn) date) unknown) (unknown) (no (unknown) (unknown) (1) 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 unknown) (unknown) (no (unknown) (unknown) (Incruse Ellipta) (units (unknown) date) unknown) (unknown) (no (unknown) (unknown) (Renvela) (units (unkn own) date) unknown) (unknown) (no (unknown) (unknown) - Date of Visit (units (unknown) date) unknown) (unknown) (no (unknown) (unknown) - Imaging (units (unkn own) date) unknown) (unknown) (no (unknown) (unknown) - Labs (units (unkno wn) date) unknown) (unknown) (no (unknown) (unknown) - Patient (units (unkn own) date) Self-Reported unknown) Symptoms (unknown) (no (unknown) (unknown) - ROS (units (unkno wn) date) unknown) (unknown) (no (unknown) (unknown) [id number] (units (unkno wn) date) unknown) (unknown) (no (unknown) (unknown) 05/23/2018. (units (un known) date) unknown) (unknown) (no (unknown) (unknown) 1. 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 (unknown) (no (unknown) (unknown) 2. Stereotactic (units (unknown) date) radiation to the unknown) brain (unknown) (no (unknown) (unknown) 04/01/2021 with (units ( unknown) date) removal of 1350 cc unknown) of bloody fluid. Despite continued treatment (unknown) (no (unknown) (unknown) 3. Pembrolizumab (units (unknown) date) since 05/23/2018 unknown) (unknown) (no (unknown) (unknown) 4. 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, high PD- (unknown) (no (unknown) (unknown) ALT 20 IU/L (<50) (units (unknown) date) 09/24/21 09:40 unknown) (unknown) (no (unknown) (unknown) AST 38 IU/L (units (u nknown) date) (17-59) 09/24/21 unknown) 09:40 (unknown) (no (unknown) (unknown) Abdomen: Soft, (units (unknown) date) NTND, BS normal, no unknown) palpable organomegaly (unknown) (no (unknown) (unknown) According to (units (u nknown) date) patient's , unknown) patient has not had any respiratory 'attack' (unknown) (no (unknown) (unknown) Additional (units (unk nown) date) studies: unknown) (unknown) (no (unknown) (unknown) Age/Sex: 70 / M (units (unknown) date) unknown) (unknown) (no (unknown) (unknown) Albumin 3.6 g/dL (units (unknown) date) (3.5-5.0) unknown) 09/24/21 09:40 (unknown) (no (unknown) (unknown) Albumin/Globulin (units (unknown) date) Ratio 1.3 unknown) (1.0-2.8) 09/24/21 09:40 (unknown) (no (unknown) (unknown) Alkaline (units (unkno wn) date) Phosphatase 277 unknown) U/L (38-126) H 09/24/21 09:40 (unknown) (no (unknown) (unknown) All Systems: (units (u nknown) date) reviewed and no unknown) additional remarkable complaints except as stated (unknown) (no (unknown) (unknown) Allergy/AdvReac (units (unknown) date) Type Severity unknown) Reaction Status Date / Time (unknown) (no (unknown) (unknown) Antibody Screen (units (unknown) date) Negative 07/10/20 unknown) 12:55 (unknown) (no (unknown) (unknown) Assessment and (units (unknown) date) Plan unknown) (unknown) (no (unknown) (unknown) Assessment: (units (un known) date) unknown) (unknown) (no (unknown) (unknown) BUN 32 mg/dL (units ( unknown) date) (9-20) H 09/24/21 unknown) 09:40 (unknown) (no (unknown) (unknown) BUN/Creatinine (units (unknown) date) Ratio 8.4 (6-22) unknown) 09/24/21 09:40 (unknown) (no (unknown) (unknown) Baso # (Auto) 0 (units (unknown) date) /uL (0-100) unknown) 09/24/21 09:40 (unknown) (no (unknown) (unknown) Baso % (Auto) 1.2 (units (unknown) date) % (0-2) 09/24/21 unknown) 09:40 (unknown) (no (unknown) (unknown) Because of (units (unk nown) date) worsening shortness unknown) of breath, patient underwent CT of the chest (unknown) (no (unknown) (unknown) Blood Type A (units ( unknown) date) Positive 07/10/20 unknown) 12:55 (unknown) (no (unknown) (unknown) Borderline (units (unk nown) date) axillary lymph unknown) nodes noted slightly worse on the right. (unknown) (no (unknown) (unknown) CALCIUM ACETATE (units (unknown) date) (PHOSLO-) 667 mg PO unknown) QDAY ##0 10/11/12 09/24/21 History (unknown) (no (unknown) (unknown) Calcium 9.0 mg/dL (units (unknown) date) (8.4-10.2) unknown) 09/24/21 09:40 (unknown) (no (unknown) (unknown) Call for any (units (u nknown) date) concerns or unknown) questions. (unknown) (no (unknown) (unknown) Carbon Dioxide 32 (units (unknown) date) mmol/L (22-32) unknown) 09/24/21 09:40 (unknown) (no (unknown) (unknown) Cardiovascular: (units (unknown) date) RRR, S1 and S2 unknown) normal, no M/G/R. (unknown) (no (unknown) (unknown) Chief Complaint: (units (unknown) date) Héctor is a 70 year unknown) old with metastatic adenocarcinoma of the lung (unknown) (no (unknown) (unknown) Chloride 93 (units (u nknown) date) mmol/L (98-107) L unknown) 09/24/21 09:40 (unknown) (no (unknown) (unknown) Clinically, (units (un known) date) patient has been unknown) doing well. Patient has been followed closely by (unknown) (no (unknown) (unknown) Creatinine 3.81 (units (unknown) date) mg/dL (0.66-1.25) unknown) H 09/24/21 09:40 (unknown) (no (unknown) (unknown) Crossmatch See (units (unknown) date) Detail 07/10/20 unknown) 12:55 (unknown) (no (unknown) (unknown) : 1950 (units (unknown) date) Acct:[id number] unknown) (unknown) (no (unknown) (unknown) Date of visit: (units (unknown) date) 09/24/21 unknown) (unknown) (no (unknown) (unknown) Miladys is a (units (un known) date) 70-year-old man unknown) with metastatic adenocarcinoma of the lung with (unknown) (no (unknown) (unknown) ECOG 1 (units (unkno wn) date) unknown) (unknown) (no (unknown) (unknown) Endoscopic (units (unk nown) date) polypectomy of unknown) large intestine (12/01/11) (unknown) (no (unknown) (unknown) Eos # (Auto) 100 (units (unknown) date) /uL (0-450) unknown) 09/24/21 09:40 (unknown) (no (unknown) (unknown) Eos % (Auto) 1.9 (units (unknown) date) % (2-4) L unknown) 09/24/21 09:40 (unknown) (no (unknown) (unknown) Estimated GFR 16 (units (unknown) date) mL/min (>60) L unknown) 09/24/21 09:40 (unknown) (no (unknown) (unknown) Exam (units (unkno wn) date) unknown) (unknown) (no (unknown) (unknown) Extremities: No LE (units (unknown) date) pitting edema. unknown) (unknown) (no (unknown) (unknown) Free T4 2.20 (units ( unknown) date) ng/dL (0.78-2.19) unknown) H 04/19/19 13:40 (unknown) (no (unknown) (unknown) Gen: WDWN, NAD, (units (unknown) date) pleasant and unknown) cooperative. (unknown) (no (unknown) (unknown) GenericComposite[P (units (unknown) date) lt Count 87 unknown) X10^3/uL (150-400) L 09/24/21 09:40 ] (unknown) (no (unknown) (unknown) GenericComposite[R (units (unknown) date) BC 3.34 X10^6/uL unknown) (4.5-5.9) L 09/24/21 09:40 ] (unknown) (no (unknown) (unknown) GenericComposite[W (units (unknown) date) BC 3.7 X10^3/uL unknown) (4.5-11.0) L 09/24/21 09:40 ] (unknown) (no (unknown) (unknown) Globulin 2.8 g/dL (units (unknown) date) (1.7-4.1) unknown) 09/24/21 09:40 (unknown) (no (unknown) (unknown) Glucose 134 mg/dL (units (unknown) date) (80-110) H unknown) 09/24/21 09:40 (unknown) (no (unknown) (unknown) HEENT: NCAT, (units ( unknown) date) EOMI, PERRLA, unknown) anicteric sclera. (unknown) (no (unknown) (unknown) Hct 32.6 % (units (un known) date) (41-53) L unknown) 09/24/21 09:40 (unknown) (no (unknown) (unknown) He came in today (units (unknown) date) accompanied by her unknown) family member. The patient is complaining (unknown) (no (unknown) (unknown) He has been on (units (unknown) date) immunotherapy with unknown) pembrolizumab since 05/23/2018. 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 He was (unknown) (no (unknown) (unknown) Injection of other (units (unknown) date) agent into spinal unknown) canal (10/19/12) (unknown) (no (unknown) (unknown) Injection of (units (u nknown) date) steroid (10/19/12) unknown) (unknown) (no (unknown) (unknown) Interval history: (units (unknown) date) unknown) (unknown) (no (unknown) (unknown) L1, positive KRAS, (units (unknown) date) and negative for unknown) EGFR/ALK/ROS-1/BRAF . (unknown) (no (unknown) (unknown) Lymph # (Auto) (units (unknown) date) 300 /uL (9294-6002) unknown) L 09/24/21 09:40 (unknown) (no (unknown) (unknown) Lymph % (Auto) (units (unknown) date) 9.0 % (25-40) L unknown) 09/24/21 09:40 (unknown) (no (unknown) (unknown) Lymphatic: no (units ( unknown) date) palpable lymph unknown) nodes in the neck, or axillae (unknown) (no (unknown) (unknown) MCH 32.9 PG (units (u nknown) date) (26-34) 09/24/21 unknown) 09:40 (unknown) (no (unknown) (unknown) MCHC 33.8 % (units (u nknown) date) (30-36) 09/24/21 unknown) 09:40 (unknown) (no (unknown) (unknown) MCV 97.4 fL (units (u nknown) date) (80-100) 09/24/21 unknown) 09:40 (unknown) (no (unknown) (unknown) [place] # (Auto) 400 (units (unknown) date) /uL (0-900) unknown) 09/24/21 09:40 (unknown) (no (unknown) (unknown) [place] % (Auto) (units ( unknown) date) 11.6 % (3-14) unknown) 09/24/21 09:40 (unknown) (no (unknown) (unknown) Narrative: (units (unk nown) date) unknown) (unknown) (no (unknown) (unknown) Neck: Supple, No (units (unknown) date) palpable unknown) thyromegaly or lymphadenopathy. (unknown) (no (unknown) (unknown) Neurological: AOx3, (units (unknown) date) CN II-XII grossly unknown) intact. No focal motor or sensory deficit. (unknown) (no (unknown) (unknown) Neut # (Auto) (units ( unknown) date) 2800 /uL unknown) (2729-8128) 09/24/21 09:40 (unknown) (no (unknown) (unknown) Neut % (Auto) (units ( unknown) date) 76.3 % (50-75) H unknown) 09/24/21 09:40 (unknown) (no (unknown) (unknown) OMEPRAZOLE 40 mg (units (unknown) date) PO BID ##0 10/11/12 unknown) 09/24/21 History (unknown) (no (unknown) (unknown) Ok to proceed to (units (unknown) date) Pembolizumab today unknown) (unknown) (no (unknown) (unknown) On 04/30/2021, we (units (unknown) date) restarted unknown) pembrolizumab 200 mg iv q21d. He has tolerated well. (unknown) (no (unknown) (unknown) On 04/21/2021, (units (u nknown) date) patient underwent unknown) successful ultrasound-guided right thoracentesis (unknown) (no (unknown) (unknown) On 05/28/2021, (units ( unknown) date) patient underwent unknown) CT chest abdomen and pelvis with contrast that (unknown) (no (unknown) (unknown) On 07/23/2021, we (units (unknown) date) initiated Avastin unknown) once every 3 weeks. Patient overall has (unknown) (no (unknown) (unknown) Oncological (units (un known) date) History Summary: unknown) (unknown) (no (unknown) (unknown) Other endoscopy of (units (unknown) date) small intestine unknown) (12/01/11) (unknown) (no (unknown) (unknown) Other x-ray of (units (unknown) date) cervical spine unknown) (10/19/12) (unknown) (no (unknown) (unknown) Other: (units (unkno wn) date) unknown) (unknown) (no (unknown) (unknown) PN -Subjective (units (unknown) date) unknown) (unknown) (no (unknown) (unknown) Patient started (units (unknown) date) Avastin on unknown) 07/24/2019 and continues pembrolizumab. (unknown) (no (unknown) (unknown) Patient underwent (units (unknown) date) MRI of the brain unknown) 11/18/2020 that showed no evidence of (unknown) (no (unknown) (unknown) Patient: (units (unkno wn) date) Miladys Díaz Kristin unknown) MR#: [id number] (unknown) (no (unknown) (unknown) Penicillins (units (un known) date) Allergy Severe unknown) passed out Verified 12/09/20 07:05 (unknown) (no (unknown) (unknown) Plan: (units (unkno wn) date) unknown) (unknown) (no (unknown) (unknown) Potassium 3.8 (units (unknown) date) mmol/L (3.4-5.1) unknown) 09/24/21 09:40 (unknown) (no (unknown) (unknown) Procedures (units (unk nown) date) unknown) (unknown) (no (unknown) (unknown) Provider: (units (unkn own) date) Willy Iglesias MD unknown) (unknown) (no (unknown) (unknown) Psychiatric: (units (u nknown) date) normal affect; unknown) normal thought process. (unknown) (no (unknown) (unknown) RDW 16.0 % (units (un known) date) (11.6-14.8) H unknown) 09/24/21 09:40 (unknown) (no (unknown) (unknown) RN visit only in 3 (units (unknown) date) weeks for unknown) pembrolizuamb/avast in (unknown) (no (unknown) (unknown) ROS1 and BRAF. The (units (unknown) date) cancer does have unknown) high PD-L1 expression. He underwent (unknown) (no (unknown) (unknown) RTC in 6 weeks for (units (unknown) date) follow up visit unknown) (unknown) (no (unknown) (unknown) Random Cortisol (units (unknown) date) 14.0 ug/dL unknown) 01/24/19 11:25 (unknown) (no (unknown) (unknown) Respiratory: (units (u nknown) date) Significantly unknown) decreased breathing sound heard over on the right (unknown) (no (unknown) (unknown) Results (units (unkno wn) date) unknown) (unknown) (no (unknown) (unknown) Rx (units (unkno wn) date) unknown) (unknown) (no (unknown) (unknown) SR Cardiovascular (units (unknown) date) issues: Shortness unknown) of breath with activity or lying flat (unknown) (no (unknown) (unknown) SR Constitution: (units (unknown) date) Fatigue/Malaise unknown) (unknown) (no (unknown) (unknown) SR Endocrine (units (u nknown) date) issues: Cold unknown) intolerance (unknown) (no (unknown) (unknown) SR (units (unkno wn) date) Gastrointestinal unknown) issues: Vomiting (unknown) (no (unknown) (unknown) SR Musculoskeletal (units (unknown) date) issues: Muscle unknown) weakness, Cold hands or feet, Difficulty (unknown) (no (unknown) (unknown) SR Neuro issues: (units (unknown) date) Headache, Tremors unknown) or shaking (unknown) (no (unknown) (unknown) SR Skin issues: (units (unknown) date) Skin color changes unknown) (unknown) (no (unknown) (unknown) SR ears, nose, (units (unknown) date) mouth, throat unknown) issues: Cough (unknown) (no (unknown) (unknown) SR eye issues: (units (unknown) date) Vision changes unknown) (unknown) (no (unknown) (unknown) SR respiratory (units (unknown) date) issues: Cough, unknown) Shortness of breath, Difficulty breathing (unknown) (no (unknown) (unknown) Signed By: (units (unk nown) date) unknown) (unknown) (no (unknown) (unknown) Sodium 136 mmol/L (units (unknown) date) (137-145) L unknown) 09/24/21 09:40 (unknown) (no (unknown) (unknown) TSH 17.5 uIU/mL (units (unknown) date) (0.47-4.68) H unknown) 09/03/21 10:00 (unknown) (no (unknown) (unknown) Total Bilirubin (units (unknown) date) 1.1 mg/dL (0.2-1.3) unknown) 09/24/21 09:40 (unknown) (no (unknown) (unknown) Total Protein 6.4 (units (unknown) date) g/dL (6.3-8.2) unknown) 09/24/21 09:40 (unknown) (no (unknown) (unknown) Treatment Summary (units (unknown) date) unknown) (unknown) (no (unknown) (unknown) VITAMIN D (Vitamin (units (unknown) date) D3) 4,000 unit PO unknown) DAILY ##0 10/11/12 09/24/21 History (unknown) (no (unknown) (unknown) Vital signs: (units (u nknown) date) unknown) (unknown) (no (unknown) (unknown) Weight 77.7 kg (units (unknown) date) unknown) (unknown) (no (unknown) (unknown) [DIALYVITE] 100 mg (units (unknown) date) PO QDAY ##0 unknown) 10/11/12 09/24/21 History (unknown) (no (unknown) (unknown) [Endoscopic] (units (u nknown) date) polypectomy of unknown) rectum (12/01/11) (unknown) (no (unknown) (unknown) abnormal right (units (unknown) date) axillary lymph unknown) nodes, new left upper lung nodule, and increasing (unknown) (no (unknown) (unknown) acetaminophen 325 (units (unknown) date) mg tablet 650 mg PO unknown) Q4H PRN Pain, Moderate 06/12/20 09/24/21 (unknown) (no (unknown) (unknown) acid 0.8 mg tablet (units (unknown) date) (Kristal-Braden) unknown) (unknown) (no (unknown) (unknown) aerosol inhaler (units (unknown) date) (ProAir HFA) unknown) (unknown) (no (unknown) (unknown) albuterol sulfate (units (unknown) date) 1.25 mg/3 mL 1.25 unknown) mg (3 mL) inhalation Q4-6H 01/08/19 09/24/21 (unknown) (no (unknown) (unknown) albuterol sulfate (units (unknown) date) 90 mcg/actuation 2 unknown) puff inhalation Q4-6H 05/09/18 09/24/21 (unknown) (no (unknown) (unknown) appropriate. Will (units (unknown) date) proceed with unknown) scheduled treatment with pembrolizumab/Avast in. (unknown) (no (unknown) (unknown) as well as (units (unk nown) date) enlarged left unknown) retroperitoneal lymph node (unknown) (no (unknown) (unknown) aspirin 81 mg (units ( unknown) date) tablet 81 mg PO unknown) DAILY 06/12/20 09/24/21 History (unknown) (no (unknown) (unknown) atorvastatin 10 mg (units (unknown) date) tablet (Lipitor) 10 unknown) mg PO BID 09/24/21 09/24/21 History (unknown) (no (unknown) (unknown) atorvastatin 80 mg (units (unknown) date) tablet 40 mg PO unknown) DAILY 06/12/20 09/24/21 History (unknown) (no (unknown) (unknown) blister powder for (units (unknown) date) inhalation unknown) (unknown) (no (unknown) (unknown) brain metastasis. (units (unknown) date) His cancer is unknown) positive for KRAS, but negative for EGFR, ALK, (unknown) (no (unknown) (unknown) brinzolamide 1 (units (unknown) date) %-brimonidine 0.2 % unknown) 1 drp ophthalmic (eye) BID 06/12/20 09/24/21 (unknown) (no (unknown) (unknown) cancer here for (units (unknown) date) scheduled follow up unknown) visit. (unknown) (no (unknown) (unknown) cinnamon (units (unkno wn) date) bark-chromium 1 cap unknown) PO DAILY 09/25/20 09/24/21 History (unknown) (no (unknown) (unknown) codeine AdvReac (units (unknown) date) Intermediate unknown) Vomiting Verified 12/09/20 07:05 (unknown) (no (unknown) (unknown) collapse/consolida (units (unknown) date) tion within the unknown) right middle and lower lobes, new left (unknown) (no (unknown) (unknown) day. Patient will (units (unknown) date) continue follow-up unknown) with Nephrology and his primary care (unknown) (no (unknown) (unknown) docusate sodium (units (unknown) date) 100 mg capsule 100 unknown) mg PO BID 06/12/20 09/24/21 History (unknown) (no (unknown) (unknown) doxycycline (units (un known) date) hyclate 100 mg unknown) capsule 100 mg PO BID #20 caps 04/17/21 09/24/21 Rx (unknown) (no (unknown) (unknown) enlarged subcarinal (units (unknown) date) lymph node and unknown) abnormal appearing right axillary lymph nodes (unknown) (no (unknown) (unknown) eye (units (unkno wn) date) drops,suspension unknown) (Simbrinza) (unknown) (no (unknown) (unknown) found to have new (units (unknown) date) right pleural unknown) effusion requiring right thoracentesis on (unknown) (no (unknown) (unknown) gabapentin 100 mg (units (unknown) date) tablet 100 mg PO unknown) BEDTIME 09/25/20 09/24/21 History (unknown) (no (unknown) (unknown) his in terms (units (unknown) date) of the blood unknown) pressure. Patient is taking metoprolol once a (unknown) (no (unknown) (unknown) intermittent (units (u nknown) date) episodes of unknown) shortness of breath, but no chest pain. He denies any (unknown) (no (unknown) (unknown) ketoconazole 2 % (units (unknown) date) topical cream 1 unknown) applic topical BID 05/09/18 09/24/21 History (unknown) (no (unknown) (unknown) levothyroxine 200 (units (unknown) date) mcg tablet 200 mcg unknown) PO DAILY 90 days #1 tab 04/30/21 09/24/21 (unknown) (no (unknown) (unknown) loratadine 10 mg (units (unknown) date) capsule 10 mg PO unknown) DAILY 05/09/18 09/24/21 History (unknown) (no (unknown) (unknown) metoprolol (units (unk nown) date) tartrate 25 mg unknown) tablet 12.5 mg PO BID 06/12/20 09/24/21 History (unknown) (no (unknown) (unknown) mg capsule (units (unk nown) date) unknown) (unknown) (no (unknown) (unknown) moderate (units (unkno wn) date) centrilobular unknown) emphysema and stable chronic pericardial thickening. (unknown) (no (unknown) (unknown) months before we (units (unknown) date) proceed with next unknown) surveillance imaging studies to evaluate the (unknown) (no (unknown) (unknown) morphine AdvReac (units (unknown) date) Vomiting Verified unknown) 12/09/20 07:05 (unknown) (no (unknown) (unknown) new headache. He (units (unknown) date) is experiencing unknown) fatigue. No rashes, and no diarrhea. (unknown) (no (unknown) (unknown) olanzapine 5 mg (units (unknown) date) tablet (Zyprexa) 5 unknown) mg PO QDAY ##0 10/11/12 09/24/21 History (unknown) (no (unknown) (unknown) paroxetine HCl 20 (units (unknown) date) mg tablet (Paxil) unknown) 20 mg PO QDAY ##0 10/11/12 09/24/21 History (unknown) (no (unknown) (unknown) picolinate-ALA 500 (units (unknown) date) mg-100 mcg-150 unknown) (unknown) (no (unknown) (unknown) pioglitazone 45 mg (units (unknown) date) tablet 45 mg PO unknown) DAILY 06/12/20 09/24/21 History (unknown) (no (unknown) (unknown) progression (units (un known) date) involving right unknown) pleural space, increasing subcarinal lymph node, (unknown) (no (unknown) (unknown) provider for blood (units (unknown) date) pressure. Patient unknown) denies any worsening shortness of breath. (unknown) (no (unknown) (unknown) pulmonary nodule (units (unknown) date) and a previously unknown) visualized pulmonary nodule unchanged, (unknown) (no (unknown) (unknown) radiation to the (units (unknown) date) brain. He has been unknown) on immunotherapy with pembrolizumab since (unknown) (no (unknown) (unknown) recently. Patient (units (unknown) date) reports no new unknown) bleeding problems. (unknown) (no (unknown) (unknown) recurrence or (units (u nknown) date) metastasis. unknown) Resection cavity and associated gliosis have remained (unknown) (no (unknown) (unknown) resection of a (units (unknown) date) right frontal brain unknown) tumor in February 2018, and stereotactic (unknown) (no (unknown) (unknown) response to the (units (unknown) date) treatment. unknown) Reviewed the labs from today. CBC and CMP are (unknown) (no (unknown) (unknown) retroperitoneal (units (unknown) date) lymph nodes unknown) (unknown) (no (unknown) (unknown) right pleural (units (u nknown) date) effusion with unknown) atelectasis of the right lower lobe. In addition it (unknown) (no (unknown) (unknown) sevelamer (units (unkn own) date) carbonate 800 mg unknown) tablet 800 mg PO DAILY ##0 10/11/12 09/24/21 History (unknown) (no (unknown) (unknown) showed bilateral (units (unknown) date) solid and subsolid unknown) pulmonary nodules that have increased in (unknown) (no (unknown) (unknown) showed interval (units (unknown) date) increase of the unknown) right pleural effusion and increased (unknown) (no (unknown) (unknown) side of the lung. (units (unknown) date) Rhonchi is and unknown) crackles heard in both lungs. Mild scattered (unknown) (no (unknown) (unknown) size when compared (units (unknown) date) to the prior study unknown) from 09/09/2020. It showed mild to (unknown) (no (unknown) (unknown) solution for (units (u nknown) date) nebulization PRN unknown) bronchospasm #75 mL (unknown) (no (unknown) (unknown) stable. 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 (unknown) (no (unknown) (unknown) stereotactic (units (u nknown) date) radiation to the unknown) brain. (unknown) (no (unknown) (unknown) the shortness of (units (unknown) date) breath has improved unknown) significantly. (unknown) (no (unknown) (unknown) tolerated quite (units (unknown) date) well. I talked unknown) with the patient that I will treat for 2-3 (unknown) (no (unknown) (unknown) travoprost 0.004 % (units (unknown) date) eye drops 1 drp unknown) ophthalmic (eye) BEDTIME 06/12/20 09/24/21 (unknown) (no (unknown) (unknown) umeclidinium 62.5 (units (unknown) date) mcg/actuation 1 inh unknown) inhalation DAILY 05/09/18 09/24/21 History (unknown) (no (unknown) (unknown) vitamin B (units (unkn own) date) complex-vitamin unknown) C-folic 1 tab DAILY 09/25/20 09/24/21 History (unknown) (no (unknown) (unknown) walking (units (unkno wn) date) unknown) (unknown) (no (unknown) (unknown) wheezes heard. (units (unknown) date) unknown) (unknown) (no (unknown) (unknown) with (units (unkno wn) date) pembrolizumab, unknown) repeat CT chest abdomen pelvis on 05/28/2021 showed disease (unknown) (no (unknown) (unknown) with removal of (units (unknown) date) 1350 cc of bloody unknown) fluid. After the procedure, patient said that (unknown) (no (unknown) (unknown) without contrast (units (unknown) date) on April 16, unknown) 2021. The scan showed new small to moderate Result panel 23 (unknown) (no (unknown) (unknown) (no value) (units (unk nown) date) unknown) (unknown) (no (unknown) (unknown) Date of Service: (units (unknown) date) 09/24/21 unknown) (unknown) (no (unknown) (unknown) (no value) (units (unk nown) date) unknown) (unknown) (no (unknown) (unknown) Allergies (units (unkn own) date) unknown) (unknown) (no (unknown) (unknown) Home Medications (units (unknown) date) unknown) (unknown) (no (unknown) (unknown) Intake and Output (units (unknown) date) unknown) (unknown) (no (unknown) (unknown) [facility] (units (unknown) date) [address] unknown) [place] [address] (unknown) (no (unknown) (unknown) Laboratory Last (units (unknown) date) Values unknown) (unknown) (no (unknown) (unknown) Oncology Progress (units (unknown) date) Note unknown) (unknown) (no (unknown) (unknown) Patient Weight (units (unknown) date) unknown) (unknown) (no (unknown) (unknown) Vital Signs (units (un known) date) unknown) (unknown) (no (unknown) (unknown) (no value) (units (unk nown) date) unknown) (unknown) (no (unknown) (unknown) Temp Pulse Resp BP (units (unknown) date) Pulse Ox unknown) (unknown) (no (unknown) (unknown) Weight 77.7 kg (units (unknown) date) unknown) (unknown) (no (unknown) (unknown) 09/23/21 09/24/21 (units (unknown) date) 09/24/21 unknown) (unknown) (no (unknown) (unknown) 09/24/21 (units (unkno wn) date) unknown) (unknown) (no (unknown) (unknown) 09/24/21 10:01 (units (unknown) date) 96.7 F L 60 18 unknown) 157/80 H 99 (unknown) (no (unknown) (unknown) 23:59 (units (unkno wn) date) unknown) (unknown) (no (unknown) (unknown) 23:59 07:59 15:59 (units (unknown) date) unknown) (unknown) (no (unknown) (unknown) Medication (units (unk nown) date) Instructions unknown) Recorded Confirmed Type (unknown) (no (unknown) (unknown) Rx (units (unkno wn) date) unknown) (unknown) (no (unknown) (unknown) this moment. 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 unknown) (unknown) (no (unknown) (unknown) (Incruse Ellipta) (units (unknown) date) unknown) (unknown) (no (unknown) (unknown) (Renvela) (units (unkn own) date) unknown) (unknown) (no (unknown) (unknown) - Date of Visit (units (unknown) date) unknown) (unknown) (no (unknown) (unknown) - Imaging (units (unkn own) date) unknown) (unknown) (no (unknown) (unknown) - Labs (units (unkno wn) date) unknown) (unknown) (no (unknown) (unknown) - Patient (units (unkn own) date) Self-Reported unknown) Symptoms (unknown) (no (unknown) (unknown) - ROS (units (unkno wn) date) unknown) (unknown) (no (unknown) (unknown) [id number] (units (unkno wn) date) unknown) (unknown) (no (unknown) (unknown) 05/23/2018. (units (un known) date) unknown) (unknown) (no (unknown) (unknown) 1. 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 (unknown) (no (unknown) (unknown) 2. Stereotactic (units (unknown) date) radiation to the unknown) brain (unknown) (no (unknown) (unknown) 04/01/2021 with (units ( unknown) date) removal of 1350 cc unknown) of bloody fluid. Despite continued treatment (unknown) (no (unknown) (unknown) 3. Pembrolizumab (units (unknown) date) since 05/23/2018 unknown) (unknown) (no (unknown) (unknown) 4. 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, high PD- (unknown) (no (unknown) (unknown) ALT 20 IU/L (<50) (units (unknown) date) 09/24/21 09:40 unknown) (unknown) (no (unknown) (unknown) AST 38 IU/L (units (u nknown) date) (17-59) 09/24/21 unknown) 09:40 (unknown) (no (unknown) (unknown) Abdomen: Soft, (units (unknown) date) NTND, BS normal, no unknown) palpable organomegaly (unknown) (no (unknown) (unknown) Additional (units (unk nown) date) studies: unknown) (unknown) (no (unknown) (unknown) Age/Sex: 70 / M (units (unknown) date) unknown) (unknown) (no (unknown) (unknown) Albumin 3.6 g/dL (units (unknown) date) (3.5-5.0) unknown) 09/24/21 09:40 (unknown) (no (unknown) (unknown) Albumin/Globulin (units (unknown) date) Ratio 1.3 unknown) (1.0-2.8) 09/24/21 09:40 (unknown) (no (unknown) (unknown) Alkaline (units (unkno wn) date) Phosphatase 277 unknown) U/L (38-126) H 09/24/21 09:40 (unknown) (no (unknown) (unknown) All Systems: (units (u nknown) date) reviewed and no unknown) additional remarkable complaints except as stated (unknown) (no (unknown) (unknown) Allergy/AdvReac (units (unknown) date) Type Severity unknown) Reaction Status Date / Time (unknown) (no (unknown) (unknown) Antibody Screen (units (unknown) date) Negative 07/10/20 unknown) 12:55 (unknown) (no (unknown) (unknown) Assessment and (units (unknown) date) Plan unknown) (unknown) (no (unknown) (unknown) Assessment: (units (un known) date) unknown) (unknown) (no (unknown) (unknown) BUN 32 mg/dL (units ( unknown) date) (9-20) H 09/24/21 unknown) 09:40 (unknown) (no (unknown) (unknown) BUN/Creatinine (units (unknown) date) Ratio 8.4 (6-22) unknown) 09/24/21 09:40 (unknown) (no (unknown) (unknown) Baso # (Auto) 0 (units (unknown) date) /uL (0-100) unknown) 09/24/21 09:40 (unknown) (no (unknown) (unknown) Baso % (Auto) 1.2 (units (unknown) date) % (0-2) 09/24/21 unknown) 09:40 (unknown) (no (unknown) (unknown) Because of (units (unk nown) date) worsening shortness unknown) of breath, patient underwent CT of the chest (unknown) (no (unknown) (unknown) Blood Type A (units ( unknown) date) Positive 07/10/20 unknown) 12:55 (unknown) (no (unknown) (unknown) Borderline (units (unk nown) date) axillary lymph unknown) nodes noted slightly worse on the right. (unknown) (no (unknown) (unknown) CALCIUM ACETATE (units (unknown) date) (PHOSLO-) 667 mg PO unknown) QDAY ##0 10/11/12 09/24/21 History (unknown) (no (unknown) (unknown) CT chest, abd and (units (unknown) date) pelvis w/contrast unknown) (unknown) (no (unknown) (unknown) Calcium 9.0 mg/dL (units (unknown) date) (8.4-10.2) unknown) 09/24/21 09:40 (unknown) (no (unknown) (unknown) Call for any (units (u nknown) date) concerns or unknown) questions. (unknown) (no (unknown) (unknown) Carbon Dioxide 32 (units (unknown) date) mmol/L (22-32) unknown) 09/24/21 09:40 (unknown) (no (unknown) (unknown) Cardiovascular: (units (unknown) date) RRR, S1 and S2 unknown) normal, no M/G/R. (unknown) (no (unknown) (unknown) Chief Complaint: (units (unknown) date) Héctor is a 70 year unknown) old with metastatic adenocarcinoma of the lung (unknown) (no (unknown) (unknown) Chloride 93 (units (u nknown) date) mmol/L (98-107) L unknown) 09/24/21 09:40 (unknown) (no (unknown) (unknown) Creatinine 3.81 (units (unknown) date) mg/dL (0.66-1.25) unknown) H 09/24/21 09:40 (unknown) (no (unknown) (unknown) Crossmatch See (units (unknown) date) Detail 07/10/20 unknown) 12:55 (unknown) (no (unknown) (unknown) : 1950 (units (unknown) date) Acct:[id number] unknown) (unknown) (no (unknown) (unknown) Date of visit: (units (unknown) date) 09/24/21 unknown) (unknown) (no (unknown) (unknown) Miladys is a (units (un known) date) 70-year-old man unknown) with metastatic adenocarcinoma of the lung with (unknown) (no (unknown) (unknown) ECOG 1 (units (unkno wn) date) unknown) (unknown) (no (unknown) (unknown) Endoscopic (units (unk nown) date) polypectomy of unknown) large intestine (12/01/11) (unknown) (no (unknown) (unknown) Eos # (Auto) 100 (units (unknown) date) /uL (0-450) unknown) 09/24/21 09:40 (unknown) (no (unknown) (unknown) Eos % (Auto) 1.9 (units (unknown) date) % (2-4) L unknown) 09/24/21 09:40 (unknown) (no (unknown) (unknown) Estimated GFR 16 (units (unknown) date) mL/min (>60) L unknown) 09/24/21 09:40 (unknown) (no (unknown) (unknown) Exam (units (unkno wn) date) unknown) (unknown) (no (unknown) (unknown) Extremities: No LE (units (unknown) date) pitting edema. unknown) (unknown) (no (unknown) (unknown) Free T4 2.20 (units ( unknown) date) ng/dL (0.78-2.19) unknown) H 04/19/19 13:40 (unknown) (no (unknown) (unknown) Gen: WDWN, NAD, (units (unknown) date) pleasant and unknown) cooperative. (unknown) (no (unknown) (unknown) GenericComposite[P (units (unknown) date) lt Count 87 unknown) X10^3/uL (150-400) L 09/24/21 09:40 ] (unknown) (no (unknown) (unknown) GenericComposite[R (units (unknown) date) BC 3.34 X10^6/uL unknown) (4.5-5.9) L 09/24/21 09:40 ] (unknown) (no (unknown) (unknown) GenericComposite[W (units (unknown) date) BC 3.7 X10^3/uL unknown) (4.5-11.0) L 09/24/21 09:40 ] (unknown) (no (unknown) (unknown) Globulin 2.8 g/dL (units (unknown) date) (1.7-4.1) unknown) 09/24/21 09:40 (unknown) (no (unknown) (unknown) Glucose 134 mg/dL (units (unknown) date) (80-110) H unknown) 09/24/21 09:40 (unknown) (no (unknown) (unknown) HEENT: NCAT, (units ( unknown) date) EOMI, PERRLA, unknown) anicteric sclera. (unknown) (no (unknown) (unknown) Hct 32.6 % (units (un known) date) (41-53) L unknown) 09/24/21 09:40 (unknown) (no (unknown) (unknown) He came in today (units (unknown) date) accompanied by her unknown) family member. The patient is complaining (unknown) (no (unknown) (unknown) He has been on (units (unknown) date) immunotherapy with unknown) pembrolizumab since 05/23/2018. 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 (unknown) (no (unknown) (unknown) Home Medications (units (unknown) date) and Allergies unknown) (unknown) (no (unknown) (unknown) In early 2021, he (units (unknown) date) developed unknown) progressive worsening shortness of breath. He was (unknown) (no (unknown) (unknown) Injection of other (units (unknown) date) agent into spinal unknown) canal (10/19/12) (unknown) (no (unknown) (unknown) Injection of (units (u nknown) date) steroid (10/19/12) unknown) (unknown) (no (unknown) (unknown) Interval history: (units (unknown) date) unknown) (unknown) (no (unknown) (unknown) L1, positive KRAS, (units (unknown) date) and negative for unknown) EGFR/ALK/ROS-1/BRAF . (unknown) (no (unknown) (unknown) Lymph # (Auto) (units (unknown) date) 300 /uL (3246-7044) unknown) L 09/24/21 09:40 (unknown) (no (unknown) (unknown) Lymph % (Auto) (units (unknown) date) 9.0 % (25-40) L unknown) 09/24/21 09:40 (unknown) (no (unknown) (unknown) Lymphatic: no (units ( unknown) date) palpable lymph unknown) nodes in the neck, or axillae (unknown) (no (unknown) (unknown) MCH 32.9 PG (units (u nknown) date) (26-34) 09/24/21 unknown) 09:40 (unknown) (no (unknown) (unknown) MCHC 33.8 % (units (u nknown) date) (30-36) 09/24/21 unknown) 09:40 (unknown) (no (unknown) (unknown) MCV 97.4 fL (units (u nknown) date) (80-100) 09/24/21 unknown) 09:40 (unknown) (no (unknown) (unknown) [place] # (Auto) 400 (units (unknown) date) /uL (0-900) unknown) 09/24/21 09:40 (unknown) (no (unknown) (unknown) [place] % (Auto) (units ( unknown) date) 11.6 % (3-14) unknown) 09/24/21 09:40 (unknown) (no (unknown) (unknown) Narrative: (units (unk nown) date) unknown) (unknown) (no (unknown) (unknown) Neck: Supple, No (units (unknown) date) palpable unknown) thyromegaly or lymphadenopathy. (unknown) (no (unknown) (unknown) Neurological: AOx3, (units (unknown) date) CN II-XII grossly unknown) intact. No focal motor or sensory deficit. (unknown) (no (unknown) (unknown) Neut # (Auto) (units ( unknown) date) 2800 /uL unknown) (4053-7586) 09/24/21 09:40 (unknown) (no (unknown) (unknown) Neut % (Auto) (units ( unknown) date) 76.3 % (50-75) H unknown) 09/24/21 09:40 (unknown) (no (unknown) (unknown) OMEPRAZOLE 40 mg (units (unknown) date) PO BID ##0 10/11/12 unknown) 09/24/21 History (unknown) (no (unknown) (unknown) On 04/30/2021, we (units (unknown) date) restarted unknown) pembrolizumab 200 mg iv q21d. He has tolerated well. (unknown) (no (unknown) (unknown) On 04/21/2021, (units (u nknown) date) patient underwent unknown) successful ultrasound-guided right thoracentesis (unknown) (no (unknown) (unknown) On 05/28/2021, (units ( unknown) date) patient underwent unknown) CT chest abdomen and pelvis with contrast that (unknown) (no (unknown) (unknown) Oncological (units (un known) date) History Summary: unknown) (unknown) (no (unknown) (unknown) Other endoscopy of (units (unknown) date) small intestine unknown) (12/01/11) (unknown) (no (unknown) (unknown) Other x-ray of (units (unknown) date) cervical spine unknown) (10/19/12) (unknown) (no (unknown) (unknown) Other: (units (unkno wn) date) unknown) (unknown) (no (unknown) (unknown) PN -Subjective (units (unknown) date) unknown) (unknown) (no (unknown) (unknown) Palliative Care (units (unknown) date) unknown) (unknown) (no (unknown) (unknown) Patient started (units (unknown) date) Avastin on unknown) 07/24/2019 and continues pembrolizumab. (unknown) (no (unknown) (unknown) Patient underwent (units (unknown) date) MRI of the brain unknown) 11/18/2020 that showed no evidence of (unknown) (no (unknown) (unknown) Patient: (units (unkno wn) date) Miladys Díaz unknown) MR#: [id number] (unknown) (no (unknown) (unknown) Penicillins (units (un known) date) Allergy Severe unknown) passed out Verified 12/09/20 07:05 (unknown) (no (unknown) (unknown) Plan: (units (unkno wn) date) unknown) (unknown) (no (unknown) (unknown) Potassium 3.8 (units (unknown) date) mmol/L (3.4-5.1) unknown) 09/24/21 09:40 (unknown) (no (unknown) (unknown) Procedures (units (unk nown) date) unknown) (unknown) (no (unknown) (unknown) Provider: (units (unkn own) date) Willy Iglesias MD unknown) (unknown) (no (unknown) (unknown) Psychiatric: (units (u nknown) date) normal affect; unknown) normal thought process. (unknown) (no (unknown) (unknown) RDW 16.0 % (units (un known) date) (11.6-14.8) H unknown) 09/24/21 09:40 (unknown) (no (unknown) (unknown) ROS1 and BRAF. The (units (unknown) date) cancer does have unknown) high PD-L1 expression. He underwent (unknown) (no (unknown) (unknown) RTC after the scan (units (unknown) date) unknown) (unknown) (no (unknown) (unknown) Random Cortisol (units (unknown) date) 14.0 ug/dL unknown) 11/27/19 11:25 (unknown) (no (unknown) (unknown) Recently according (units (unknown) date) to patient's , unknown) the patient has had multiple frequent (unknown) (no (unknown) (unknown) Respiratory: (units (u nknown) date) Significantly unknown) decreased breathing sound heard over on the right (unknown) (no (unknown) (unknown) Results (units (unkno wn) date) unknown) (unknown) (no (unknown) (unknown) Rx (units (unkno wn) date) unknown) (unknown) (no (unknown) (unknown) SR Cardiovascular (units (unknown) date) issues: Shortness unknown) of breath with activity or lying flat (unknown) (no (unknown) (unknown) SR Constitution: (units (unknown) date) Fatigue/Malaise unknown) (unknown) (no (unknown) (unknown) SR Endocrine (units (u nknown) date) issues: Cold unknown) intolerance (unknown) (no (unknown) (unknown) SR (units (unkno wn) date) Gastrointestinal unknown) issues: Vomiting (unknown) (no (unknown) (unknown) SR Musculoskeletal (units (unknown) date) issues: Muscle unknown) weakness, Cold hands or feet, Difficulty (unknown) (no (unknown) (unknown) SR Neuro issues: (units (unknown) date) Headache, Tremors unknown) or shaking (unknown) (no (unknown) (unknown) SR Skin issues: (units (unknown) date) Skin color changes unknown) (unknown) (no (unknown) (unknown) SR ears, nose, (units (unknown) date) mouth, throat unknown) issues: Cough (unknown) (no (unknown) (unknown) SR eye issues: (units (unknown) date) Vision changes unknown) (unknown) (no (unknown) (unknown) SR respiratory (units (unknown) date) issues: Cough, unknown) Shortness of breath, Difficulty breathing (unknown) (no (unknown) (unknown) Signed By: (units (unk nown) date) unknown) (unknown) (no (unknown) (unknown) Sodium 136 mmol/L (units (unknown) date) (137-145) L unknown) 09/24/21 09:40 (unknown) (no (unknown) (unknown) TSH 17.5 uIU/mL (units (unknown) date) (0.47-4.68) H unknown) 09/03/21 10:00 (unknown) (no (unknown) (unknown) Total Bilirubin (units (unknown) date) 1.1 mg/dL (0.2-1.3) unknown) 09/24/21 09:40 (unknown) (no (unknown) (unknown) Total Protein 6.4 (units (unknown) date) g/dL (6.3-8.2) unknown) 09/24/21 09:40 (unknown) (no (unknown) (unknown) Treatment Summary (units (unknown) date) unknown) (unknown) (no (unknown) (unknown) Until now, patient (units (unknown) date) has been receiving unknown) treatment with Avastin together with the (unknown) (no (unknown) (unknown) VITAMIN D (Vitamin (units (unknown) date) D3) 4,000 unit PO unknown) DAILY ##0 10/11/12 09/24/21 History (unknown) (no (unknown) (unknown) Vital signs: (units (u nknown) date) unknown) (unknown) (no (unknown) (unknown) Weight 77.7 kg (units (unknown) date) unknown) (unknown) (no (unknown) (unknown) [DIALYVITE] 100 mg (units (unknown) date) PO QDAY ##0 unknown) 10/11/12 09/24/21 History (unknown) (no (unknown) (unknown) [Endoscopic] (units (u nknown) date) polypectomy of unknown) rectum (12/01/11) (unknown) (no (unknown) (unknown) abdomen pelvis to (units (unknown) date) evaluate the unknown) treatment response. If he does respond (unknown) (no (unknown) (unknown) abnormal right (units (unknown) date) axillary lymph unknown) nodes, new left upper lung nodule, and increasing (unknown) (no (unknown) (unknown) acetaminophen 325 (units (unknown) date) mg tablet 650 mg PO unknown) Q4H PRN Pain, Moderate 06/12/20 09/24/21 (unknown) (no (unknown) (unknown) acid 0.8 mg tablet (units (unknown) date) (Kristal-Braden) unknown) (unknown) (no (unknown) (unknown) aerosol inhaler (units (unknown) date) (ProAir HFA) unknown) (unknown) (no (unknown) (unknown) albuterol sulfate (units (unknown) date) 1.25 mg/3 mL 1.25 unknown) mg (3 mL) inhalation Q4-6H 01/08/19 09/24/21 (unknown) (no (unknown) (unknown) albuterol sulfate (units (unknown) date) 90 mcg/actuation 2 unknown) puff inhalation Q4-6H 05/09/18 09/24/21 (unknown) (no (unknown) (unknown) and transition to (units (unknown) date) comfort care. But unknown) he does not want to go into hospice care at (unknown) (no (unknown) (unknown) as well as (units (unk nown) date) enlarged left unknown) retroperitoneal lymph node (unknown) (no (unknown) (unknown) aspirin 81 mg (units ( unknown) date) tablet 81 mg PO unknown) DAILY 06/12/20 09/24/21 History (unknown) (no (unknown) (unknown) atorvastatin 10 mg (units (unknown) date) tablet (Lipitor) 10 unknown) mg PO BID 09/24/21 09/24/21 History (unknown) (no (unknown) (unknown) atorvastatin 80 mg (units (unknown) date) tablet 40 mg PO unknown) DAILY 06/12/20 09/24/21 History (unknown) (no (unknown) (unknown) blister powder for (units (unknown) date) inhalation unknown) (unknown) (no (unknown) (unknown) brain metastasis. (units (unknown) date) His cancer is unknown) positive for KRAS, but negative for EGFR, ALK, (unknown) (no (unknown) (unknown) breath. His cough (units (unknown) date) is getting better unknown) according to patient's . No abdominal (unknown) (no (unknown) (unknown) brinzolamide 1 (units (unknown) date) %-brimonidine 0.2 % unknown) 1 drp ophthalmic (eye) BID 06/12/20 09/24/21 (unknown) (no (unknown) (unknown) cancer here for (units (unknown) date) scheduled follow up unknown) visit. (unknown) (no (unknown) (unknown) cinnamon (units (unkno wn) date) bark-chromium 1 cap unknown) PO DAILY 09/25/20 09/24/21 History (unknown) (no (unknown) (unknown) codeine AdvReac (units (unknown) date) Intermediate unknown) Vomiting Verified 12/09/20 07:05 (unknown) (no (unknown) (unknown) collapse/consolida (units (unknown) date) tion within the unknown) right middle and lower lobes, new left (unknown) (no (unknown) (unknown) denies any chest (units (unknown) date) pain. He does unknown) continue to have significant shortness of (unknown) (no (unknown) (unknown) docusate sodium (units (unknown) date) 100 mg capsule 100 unknown) mg PO BID 06/12/20 09/24/21 History (unknown) (no (unknown) (unknown) doxycycline (units (un known) date) hyclate 100 mg unknown) capsule 100 mg PO BID #20 caps 04/17/21 09/24/21 Rx (unknown) (no (unknown) (unknown) enlarged subcarinal (units (unknown) date) lymph node and unknown) abnormal appearing right axillary lymph nodes (unknown) (no (unknown) (unknown) eye (units (unkno wn) date) drops,suspension unknown) (Simbrinza) (unknown) (no (unknown) (unknown) falls almost (units (u nknown) date) daily. Patient unknown) usually falls when he gets up from the bed. He (unknown) (no (unknown) (unknown) favorably, I would (units (unknown) date) recommend continue unknown) the active treatment. Otherwise I agree (unknown) (no (unknown) (unknown) found to have new (units (unknown) date) right pleural unknown) effusion requiring right thoracentesis on (unknown) (no (unknown) (unknown) gabapentin 100 mg (units (unknown) date) tablet 100 mg PO unknown) BEDTIME 09/25/20 09/24/21 History (unknown) (no (unknown) (unknown) here today to (units ( unknown) date) discuss about unknown) transition to comfort care. (unknown) (no (unknown) (unknown) his family decided (units (unknown) date) that the would like unknown) to stop the active anticancer treatment (unknown) (no (unknown) (unknown) intermittent (units (u nknown) date) episodes of unknown) shortness of breath, but no chest pain. He denies any (unknown) (no (unknown) (unknown) ketoconazole 2 % (units (unknown) date) topical cream 1 unknown) applic topical BID 05/09/18 09/24/21 History (unknown) (no (unknown) (unknown) levothyroxine 200 (units (unknown) date) mcg tablet 200 mcg unknown) PO DAILY 90 days #1 tab 04/30/21 09/24/21 (unknown) (no (unknown) (unknown) loratadine 10 mg (units (unknown) date) capsule 10 mg PO unknown) DAILY 05/09/18 09/24/21 History (unknown) (no (unknown) (unknown) metoprolol (units (unk nown) date) tartrate 25 mg unknown) tablet 12.5 mg PO BID 06/12/20 09/24/21 History (unknown) (no (unknown) (unknown) mg capsule (units (unk nown) date) unknown) (unknown) (no (unknown) (unknown) moderate (units (unkno wn) date) centrilobular unknown) emphysema and stable chronic pericardial thickening. (unknown) (no (unknown) (unknown) morphine AdvReac (units (unknown) date) Vomiting Verified unknown) 12/09/20 07:05 (unknown) (no (unknown) (unknown) new headache. He (units (unknown) date) is experiencing unknown) fatigue. No rashes, and no diarrhea. (unknown) (no (unknown) (unknown) olanzapine 5 mg (units (unknown) date) tablet (Zyprexa) 5 unknown) mg PO QDAY ##0 10/11/12 09/24/21 History (unknown) (no (unknown) (unknown) pain. Patient (units ( unknown) date) continues on unknown) dialysis as usual. The patient and his came in (unknown) (no (unknown) (unknown) palliative/hospice (units (unknown) date) care. unknown) (unknown) (no (unknown) (unknown) paroxetine HCl 20 (units (unknown) date) mg tablet (Paxil) unknown) 20 mg PO QDAY ##0 10/11/12 09/24/21 History (unknown) (no (unknown) (unknown) pembrolizumab. (units (unknown) date) However, recently unknown) patient has multiple falls. The patient and (unknown) (no (unknown) (unknown) picolinate-ALA 500 (units (unknown) date) mg-100 mcg-150 unknown) (unknown) (no (unknown) (unknown) pioglitazone 45 mg (units (unknown) date) tablet 45 mg PO unknown) DAILY 06/12/20 09/24/21 History (unknown) (no (unknown) (unknown) progression (units (un known) date) involving right unknown) pleural space, increasing subcarinal lymph node, (unknown) (no (unknown) (unknown) pulmonary nodule (units (unknown) date) and a previously unknown) visualized pulmonary nodule unchanged, (unknown) (no (unknown) (unknown) radiation to the (units (unknown) date) brain. He has been unknown) on immunotherapy with pembrolizumab since (unknown) (no (unknown) (unknown) recurrence or (units (u nknown) date) metastasis. 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 In addition it (unknown) (no (unknown) (unknown) sevelamer (units (unkn own) date) carbonate 800 mg unknown) tablet 800 mg PO DAILY ##0 10/11/12 09/24/21 History (unknown) (no (unknown) (unknown) showed bilateral (units (unknown) date) solid and subsolid unknown) pulmonary nodules that have increased in (unknown) (no (unknown) (unknown) showed interval (units (unknown) date) increase of the unknown) right pleural effusion and increased (unknown) (no (unknown) (unknown) side of the lung. (units (unknown) date) Mild scattered unknown) wheezes heard. (unknown) (no (unknown) (unknown) size when compared (units (unknown) date) to the prior study unknown) from 09/09/2020. It showed mild to (unknown) (no (unknown) (unknown) solution for (units (u nknown) date) nebulization PRN unknown) bronchospasm #75 mL (unknown) (no (unknown) (unknown) stable. 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 (unknown) (no (unknown) (unknown) stereotactic (units (u nknown) date) radiation to the unknown) brain. (unknown) (no (unknown) (unknown) the shortness of (units (unknown) date) breath has improved unknown) significantly. (unknown) (no (unknown) (unknown) travoprost 0.004 % (units (unknown) date) eye drops 1 drp unknown) ophthalmic (eye) BEDTIME 06/12/20 09/24/21 (unknown) (no (unknown) (unknown) umeclidinium 62.5 (units (unknown) date) mcg/actuation 1 inh unknown) inhalation DAILY 05/09/18 09/24/21 History (unknown) (no (unknown) (unknown) vitamin B (units (unkn own) date) complex-vitamin unknown) C-folic 1 tab DAILY 09/25/20 09/24/21 History (unknown) (no (unknown) (unknown) walking (units (unkno wn) date) unknown) (unknown) (no (unknown) (unknown) we stop all the (units (unknown) date) anticancer unknown) treatment and patient be transitioned to (unknown) (no (unknown) (unknown) with (units (unkno wn) date) pembrolizumab, unknown) repeat CT chest abdomen pelvis on 05/28/2021 showed disease (unknown) (no (unknown) (unknown) with removal of (units (unknown) date) 1350 cc of bloody unknown) fluid. After the procedure, patient said that (unknown) (no (unknown) (unknown) without contrast (units (unknown) date) on April 16, unknown) 2021. The scan showed new small to moderate Result panel 24 (unknown) (no date) (unknown) (unknown) 12.5 uIU/mL (unkn own) Result panel 25 (unknown) (no (unknown) (unknown) (no value) (units (unk nown) date) unknown) (unknown) (no (unknown) (unknown) [address] [place] [address] (units (unknown) date) unknown) (unknown) (no (unknown) (unknown) [place], [place] (units ( unknown) date) [id number] unknown) (unknown) (no (unknown) (unknown) [facility] (units (unknown) date) unknown) (unknown) (no (unknown) (unknown) Signed (units (unkno wn) date) unknown) (unknown) (no (unknown) (unknown) XRay Report (units (un known) date) unknown) (unknown) (no (unknown) (unknown) (no value) (units (unk nown) date) unknown) (unknown) (no (unknown) (unknown) 09/24/21 (units (unkno wn) date) unknown) (unknown) (no (unknown) (unknown) 1. Remote L5 (units (u nknown) date) laminectomy, unknown) lumbar degenerative change. (unknown) (no (unknown) (unknown) 2. Previous CT (units (unknown) date) of the chest, unknown) abdomen, and pelvis, from April identifies canal (unknown) (no (unknown) (unknown) Approved by: (units (u nknown) date) Gold Leonard, unknown) Andrea on 09/24/2021 at 14:28 (unknown) (no (unknown) (unknown) Bones: 5 (units (unkn own) date) [id number] unknown) vertebrae are present. There is normal bony (unknown) (no (unknown) (unknown) COMPARISON: (units (un known) date) [facility], unknown) CT, CT CHEST ABD PEL W CON, 05/28/2021, 10:55. (unknown) (no (unknown) (unknown) Comment: (units (unkno wn) date) Consider lumbar unknown) spine MRI with and without contrast for further (unknown) (no (unknown) (unknown) Comparison is (units ( unknown) date) made to the unknown) patient's previous CT from 05/28/2021 demonstrating (unknown) (no (unknown) (unknown) Dictated by: (units (u nknown) date) william Lara M.D. on 09/24/2021 at 14:23 (unknown) (no (unknown) (unknown) FINDINGS: (units (unkn own) date) unknown) (unknown) (no (unknown) (unknown) Hospital, CR, XR (units (unknown) date) LUMBAR SPINE unknown) 2-3V, 05/04/2018, 13:35. (unknown) (no (unknown) (unknown) IMPRESSION: (units (un known) date) unknown) (unknown) (no (unknown) (unknown) INDICATIONS: (units (u nknown) date) BACK PAIN unknown) (unknown) (no (unknown) (unknown) L3-L4 and a (units (un known) date) probable right unknown) posterior lateral disc protrusion at L4-L5, likely (unknown) (no (unknown) (unknown) Soft tissues: (units ( unknown) date) Overlying bowel unknown) gas pattern is normal. No suspicious soft (unknown) (no (unknown) (unknown) TECHNIQUE: 3 (units ( unknown) date) views of the unknown) lumbar spine were acquired. (unknown) (no (unknown) (unknown) calcifications. (units (unknown) date) unknown) (unknown) (no (unknown) (unknown) impinging on the (units (unknown) date) right L4 nerve unknown) root. (unknown) (no (unknown) (unknown) loss. (units (unkno wn) date) Multilevel facet unknown) arthropathy. Remote L5 laminectomy. (unknown) (no (unknown) (unknown) on the right L3 (units (unknown) date) nerve root in the unknown) foramen. (unknown) (no (unknown) (unknown) previous body CT (units (unknown) date) study. unknown) (unknown) (no (unknown) (unknown) stenosis at (units (un known) date) L3-L4 and a unknown) probable right posterior lateral disc protrusion at L4- (unknown) (no (unknown) (unknown) this patient (units (u nknown) date) with a history of unknown) lung cancer and back pain and the findings noted (unknown) (no (unknown) (unknown) vertebral body (units (unknown) date) compression unknown) fractures. No suspicious bony lesions. Multilevel (unknown) (no (unknown) (unknown) [id number] (units (unkn own) date) unknown) (unknown) (no (unknown) (unknown) Accession (units (unkn own) date) Number: unknown) [id number] (unknown) (no (unknown) (unknown) Age/Sex: 70 / M (units (unknown) date) Date of unknown) Service: (unknown) (no (unknown) (unknown) : 1950 (units (unknown) date) Acct:[id number] unknown) (unknown) (no (unknown) (unknown) [place] (units (unkno wn) date) unknown) (unknown) (no (unknown) (unknown) L5 likely (units (unkn own) date) unknown) (unknown) (no (unknown) (unknown) Loc: RAD (units (unkno wn) date) unknown) (unknown) (no (unknown) (unknown) Ordering (units (unkno wn) date) Provider: unknown) Mago Cantu MD (unknown) (no (unknown) (unknown) PROCEDURE: XR (units (unknown) date) LUMBAR SPINE 2-3V unknown) (unknown) (no (unknown) (unknown) Patient: (units (unkno wn) date) Miladys Díaz unknown) MR#: [id number] (unknown) (no (unknown) (unknown) Procedure: XR (units ( unknown) date) lumbar spine 2-3V unknown) (unknown) (no (unknown) (unknown) alignment. No (units (unknown) date) unknown) (unknown) (no (unknown) (unknown) canal (units (unkno wn) date) unknown) (unknown) (no (unknown) (unknown) disc space (units (unk nown) date) unknown) (unknown) (no (unknown) (unknown) evaluation in (units ( unknown) date) unknown) (unknown) (no (unknown) (unknown) impinging (units (unkn own) date) unknown) (unknown) (no (unknown) (unknown) on the (units (unkno wn) date) unknown) (unknown) (no (unknown) (unknown) stenosis at (units (un known) date) unknown) (unknown) (no (unknown) (unknown) tissue (units (unkno wn) date) unknown) Result panel 26 (unknown) (no (unknown) (unknown) (no value) (units (unk nown) date) unknown) (unknown) (no (unknown) (unknown) [address] [place] [address] (units (unknown) date) unknown) (unknown) (no (unknown) (unknown) [place], [place] (units ( unknown) date) [id number] unknown) (unknown) (no (unknown) (unknown) [facility] (units (unknown) date) unknown) (unknown) (no (unknown) (unknown) Signed (units (unkno wn) date) unknown) (unknown) (no (unknown) (unknown) XRay Report (units (un known) date) unknown) (unknown) (no (unknown) (unknown) (no value) (units (unk nown) date) unknown) (unknown) (no (unknown) (unknown) 09/24/21 (units (unkno wn) date) unknown) (unknown) (no (unknown) (unknown) Approved by: (units (u nknown) date) vaishnavi Lara) Andrea on 09/24/2021 at 14:22 (unknown) (no (unknown) (unknown) Bones: No (units (unk nown) date) fractures or unknown) dislocations. No suspicious bony lesions. There is (unknown) (no (unknown) (unknown) COMPARISON: (units (un known) date) None. unknown) (unknown) (no (unknown) (unknown) Dictated by: (units (u nknown) date) vaishnavi Lara) Andrea on 09/24/2021 at 14:11 (unknown) (no (unknown) (unknown) FINDINGS: (units (unkn own) date) unknown) (unknown) (no (unknown) (unknown) IMPRESSION: (units (un known) date) Question unknown) bilateral sacroiliitis. Consider pelvic MRI with and (unknown) (no (unknown) (unknown) INDICATIONS: (units (u nknown) date) BACK PAIN unknown) (unknown) (no (unknown) (unknown) Soft tissues: (units ( unknown) date) Visualized bowel unknown) gas pattern is normal. No suspicious soft (unknown) (no (unknown) (unknown) TECHNIQUE: 3 (units ( unknown) date) views of the unknown) sacrum and coccyx acquired. (unknown) (no (unknown) (unknown) contrast for (units (u nknown) date) confirmation. unknown) (unknown) (no (unknown) (unknown) densities. (units (unk nown) date) unknown) (unknown) (no (unknown) (unknown) indistinctness (units (unknown) date) of the cortical unknown) margins of the SI joints bilaterally suggesting (unknown) (no (unknown) (unknown) sacroiliitis. (units ( unknown) date) unknown) (unknown) (no (unknown) (unknown) [id number] (units (unkn own) date) unknown) (unknown) (no (unknown) (unknown) Accession (units (unkn own) date) Number: unknown) [id number] (unknown) (no (unknown) (unknown) Age/Sex: 70 / M (units (unknown) date) Date of unknown) Service: (unknown) (no (unknown) (unknown) : 1950 (units (unknown) date) Acct:[id number] unknown) (unknown) (no (unknown) (unknown) Loc: RAD (units (unkno wn) date) unknown) (unknown) (no (unknown) (unknown) Ordering (units (unkno wn) date) Provider: unknown) Mago Cantu MD (unknown) (no (unknown) (unknown) PROCEDURE: XR (units (unknown) date) SACRUM COCCYX MIN unknown) 2V (unknown) (no (unknown) (unknown) Patient: (units (unkno wn) date) Miladys Díaz unknown) MR#: M (unknown) (no (unknown) (unknown) Procedure: XR (units ( unknown) date) sacrum coccyx min unknown) 2V (unknown) (no (unknown) (unknown) possible (units (unkno wn) date) unknown) (unknown) (no (unknown) (unknown) tissue (units (unkno wn) date) unknown) (unknown) (no (unknown) (unknown) without (units (unkno wn) date) unknown) Social History No information. Vital Signs No information.
--- NOTE | 2021-09-24 17:44 | ED Physician Documentation ---
History of Present Illness - Stated complaint Stated Complaint: FACE INJ - Chief complaint Chief Complaint: Trauma Hd/Nk - Additonal information Additional information: 62-year-old male who has a history of cancer as well as dialysis presents emergency department after a mechanical fall at home. He tripped falling forward striking his face on a box. He did not lose consciousness. He does have an abrasion to the bridge of his nose which is quite tender. His son also reports that he has pain under his left eye. There was a small amount of epistaxis that briefly resolved Review of Systems Constitutional: reports: Reviewed and negative Eyes: reports: Other (Tenderness under the left orbits) Ears: reports: Reviewed and negative Nose: reports: Epistaxis, Other (Abrasion on bridge of nose) Throat: reports: Reviewed and negative Cardiac: reports: Reviewed and negative Skin: reports: Abrasion (s) Musculoskeletal: denies: Neck pain PD PAST MEDICAL HISTORY - Past Medical History Cardiovascular: Hypertension, High cholesterol Respiratory: Other Neuro: CVA, Other Endocrine/Autoimmune: HyPOthyroidism GI: GERD : Dialysis HEENT: None Psych: Schizophrenia Musculoskeletal: Chronic back pain Derm: None - Past Surgical History Past Surgical History: Yes General: Cholecystectomy Neuro: Other HEENT: Tonsil/Adenoidectomy - Present Medications Home Medications: Ambulatory Orders Medication Instructions Recorded Confirmed Albuterol Sulfate [Proair Hfa] PRN 07/19/13 01/23/15 Calcium Acetate [Phoslo] 667 mg PO TIDWM 07/19/13 01/23/15 Cholecalciferol (Vitamin D3) 1,000 unit PO BID 07/19/13 01/23/15 [Vitamin D] Gabapentin [Neurontin] 600 mg PO Q6HR 07/19/13 01/23/15 Levothyroxine Sodium [Levoxyl] 225 mcg PO DAILY 07/19/13 01/23/15 Lisinopril 20 mg PO DAILY 07/19/13 01/23/15 Loratadine [Claritin] 10 mg PO DAILY 07/19/13 01/23/15 Methylcellulose [Fiber] 500 mg PO 07/19/13 01/23/15 Metoclopramide Inj [Reglan] 07/19/13 01/23/15 Metoprolol Succinate [Toprol Xl] 25 mg PO DAILY 07/19/13 01/23/15 Metoprolol Succinate [Toprol Xl] 50 mg PO QPM 07/19/13 01/23/15 Morphine Ir [Ms Ir] 15 mg PO Q6H PRN 07/19/13 01/23/15 OLANZapine [Zyprexa] 5 mg PO DAILY 07/19/13 01/23/15 Omeprazole [Prilosec] 40 mg PO DAILY 07/19/13 01/23/15 PARoxetine HCl [Paxil] 20 mg PO DAILY 07/19/13 01/23/15 Sevelamer Carbonate [Renvela] 1,600 mg PO AC 07/19/13 01/23/15 Simvastatin [Zocor] 20 mg PO QPM 07/19/13 01/23/15 levoFLOXacin [Levaquin] 500 mg PO ONCE #5 tablet 04/22/14 01/23/15 Aspirin 325 mg PO DAILY 01/23/15 01/23/15 Testosterone [Androderm] 4 mg TOP DAILY 01/23/15 01/23/15 - Allergies Allergies/Adverse Reactions: Allergies Allergy/AdvReac Type Severity Reaction Status Date / Time Penicillins Allergy Severe Unknown Verified 09/24/21 16:41 codeine AdvReac Severe Unknown Verified 09/24/21 16:41 - Social History Does the pt smoke?: Yes Smoking Status: Current every day smoker Does the pt drink ETOH?: No Does the pt have substance abuse?: No - Immunizations Immunizations are current?: Yes - POLST Patient has POLST: No PD ED PE EXPANDED - General General: Alert, Other (Geriatric chronically frail ill appearance) - HEENT HEENT: EOMI, Ears normal, Other (Tenderness to the bridge of the nose with a superficial abrasion. No obvious deformity. No septal hematoma. There is tenderness under the left eye/orbits without ecchymosis. EOMI. No hemotympanums, davenport or raccoon eyes) - Neck Neck: Supple w/out meningeal sx, Other (Full range of motion. No tenderness on exam. No pain with axial loading. Cleared by Nexus criteria). No: Adenopathy Results - Vitals Vitals: Vital Signs - 24 hr 09/24/21 09/24/21 16:32 18:50 Temperature 36.1 C L Heart Rate 64 61 Respiratory 16 16 Rate Blood Pressure 148/79 H 154/72 H O2 Saturation 99 99 Oxygen O2 Source Room air - Rads (name of study) CT head Radiology: Final report received (No acute intracranial process) max fac CT Radiology: Final report received (Negative for displaced fracture. Bones demonstrate generalized chalky thickened appearance. Please consider Paget's disease) PD MEDICAL DECISION MAKING - ED course Complexity details: considered differential, d/w patient, d/w family ED course: 62-year-old male who has a history of end-stage renal disease on 3 times weekly dialysis as well as cancer presents emergency department after ground-level fall this afternoon which he tripped hitting a box on the floor. He does have superficial abrasion on evidence nose. Given his advanced age and medical history a CT of the head was completed without findings of acute intracranial process. Maxillofacial CT was completed given the nasal abrasion as well as tenderness on the left orbit. Again no fracture was seen. I was able to clear his C-spine by Nexus criteria. Findings were discussed with the patient and his son at the bedside. Emergent return precautions discussed Departure - Departure Disposition: 01 Home, Self Care Clinical Impression: Fall from ground level Nasal abrasion Qualifiers: Encounter type: initial encounter Qualified Code(s): S00.31XA - Abrasion of nose, initial encounter Condition: Stable Record reviewed to determine appropriate education?: Yes Comments: The CT of Poncho's face and head do not show any broken bones or findings of bleeding or bruising within the brain. The abrasion on his nose can be cleansed once or twice daily and have bacitracin or Neosporin applied. If at any point over the next few days you find that he has an acutely altered mental status, slurred speech facial droop please return immediately to the ER for second evaluation
--- NOTE | 2021-09-24 18:30 | CT Report ---
PROCEDURE: HEAD WO INDICATIONS: fall; dialysis; hx of cancer; ? ICB TECHNIQUE: Noncontrast 4.5 mm thick angled axial sections acquired from the foramen magnum to the vertex. For r adiation dose reduction, the following was used: automated exposure control, adjustment of mA and/or kV according to patient size. COMPARISON: Prior head CT examinations, 04/22/2014, 07/19/2013 Correlation is made with the [facility] maxillofacial CT, 09/16/2021. FINDINGS: Image quality: Motion artifact is noted. Images were repeated, with some improvement. CSF spaces: Basal cisterns are patent. No extra-axial fluid collections. Ventricles are normal in size and shape. Brain: No midline shift. No intracranial masses or hemorrhage. Lewis-white matter interface is norm al. There is a remote infarction seen involving lateral aspect of the left frontal lobe. A focal inf arct is also seen involving the superior medial aspect of the right frontal lobe. Skull and face: Craniotomy change can be seen on the right anteriorly. Calvarium and visualized fac ial bones are intact, without suspicious lesions. Within the skull base, the bones demonstrate a chal ky, thickened appearance. Sinuses: Visualized sinuses and mastoids are clear. IMPRESSION: No intracranial hemorrhage is seen. Areas of remote bilateral cerebral infarction can be seen, which are new compared to 2015. Prior right frontal craniotomy change can be seen. The bones of the skull base demonstrate chalky, thickened appearance. Please consider Paget's disease . Reviewed by: Vikram Wilson MD on 09/24/2021 5:29 PM AKDT Approved by: Vikram Wilson MD on 09/24/2021 5:29 PM AKDT Station ID: [id number]
--- NOTE | 2021-09-24 18:33 | CT Report ---
PROCEDURE: MAXILLOFACIAL WO INDICATIONS: ? nasal or left orbital fracture TECHNIQUE: Noncontrast 1.5 mm thick axial images acquired from the mandible through the frontal sinuses, with co denny and sagittal reformatting. For radiation dose reduction, the following was used: automated ex posure control, adjustment of mA and/or kV according to patient size. COMPARISON: Correlation is made with the accompanying head CT, 09/16/2021. FINDINGS: Image quality: Excellent. Bones and teeth: Orbital willis are intact. Sinus willis show no fracture or deformity. Nasal bones and septum are intact. Visualized portions of the mandible demonstrate no fractures or subluxation. Zygomatic arches are intact. Pterygoid plates are intact. Visualized portions of the skull base an d auditory canals are intact. The bones of the face and the bones of the skull base demonstrate a thickened, chalky appearance. There is partial visualization of cervical spine fixation hardware. On the breaster image, right frontal craniotomy change can be seen. Sinuses: Paranasal sinuses are aerated, without fluid levels, mucosal thickening, or mucoceles. Mas toid air cells are aerated. Soft tissues: No edema, masses, or fluid collections. No enlarged lymph nodes. No soft tissue lace rations or debris. There is partial visualization of a right-sided central line. Vascular: Visualized vascular structures appear normal in the absence of contrast. Bony vascular fo ramina and canals are intact. IMPRESSION: Negative for displaced fracture. The bones demonstrate generalized chalky, thickened appearance. Please consider Paget's disease. Incidental note is made of: Right-sided central line Cervical spine fixation hardware Reviewed by: Vikram Wilson MD on 09/24/2021 5:31 PM AKNAOMI Approved by: Vikram Wilson MD on 09/24/2021 5:31 PM AKNAOMI Station ID: [id number]
[2021-09-24 18:50] VITALS: BP 154/72
== END 2021-09-24 20:03 | disposition home or self-care (01) ==
LOC: ED 16:28
DX: S00.31XA Abrasion of nose, initial encounter (principal); W01.198A Fall on same level from slipping, tripping and stumbling with subsequent striking against other object, initial encounter; Y92.009 Unspecified place in unspecified non-institutional (private) residence as the place of occurrence of the external cause; I10 Essential (primary) hypertension; F17.200 Nicotine dependence, unspecified, uncomplicated
CPT/HCPCS: 99282; 99284

== ENCOUNTER 2022-01-25 11:25 | Outpatient (CLI) | payer MEDICARE, MEDICAID | END 2022-01-25 23:59 | disposition critical access hospital (66) | LOC: EMS 11:25 | DX: R53.1 Weakness (principal); R29.810 Facial weakness; R41.0 Disorientation, unspecified; R26.2 Difficulty in walking, not elsewhere classified; Z99.2 Dependence on renal dialysis | CPT/HCPCS: A0425; A0429 ==

== ENCOUNTER 2022-01-25 11:47 | Emergency (ER) | payer MEDICARE, MEDICAID ==
--- NOTE | 2022-01-25 11:54 | ED Physician Documentation ---
History of Present Illness - Stated complaint Stated Complaint: CODE STROKE - History obtained from History obtained from: Patient, EMS - Additonal information Additional information: This is a 71-year-old male with a past medical history of hypertension, hyperlipidemia, end-stage renal disease on hemodialysis Tuesday and Tuesday, and a prior stroke with some right-sided residual weakness who presents from dialysis center due to concerns for possible stroke. The patient was weaker than normal at dialysis and apparently told the dialysis nurse that he thought he had a stroke, reporting increasing right arm weakness as well as a possible facial droop and dialysis this EMS was called. But now he is stating "I wish I didn't say that." He did not receive any dialysis today. On EMS arrival, they did not appreciate any facial droop or other focal deficits other than possible right-sided weakness that may be beyond his baseline. Patient states he has noticed increasing weakness in both legs over the last week or so, and has chronic right arm weakness. He has cough which is chronic and no worse than normal. He denies headache, vision changes, speech difficulty, confusion, numbness. He has had no chest pain, dyspnea, abd pain, n/v/d, or urinary sx. Pt states that he wishes to be DNR/DNI and that he has spoken with his family about this. Review of Systems Ten Systems: 10 systems reviewed and negative PD PAST MEDICAL HISTORY - Past Medical History Past Medical History: Yes Cardiovascular: Hypertension, High cholesterol Respiratory: Other (Lung cancer) Neuro: CVA, Other Endocrine/Autoimmune: HyPOthyroidism GI: GERD : Dialysis HEENT: None Psych: Schizophrenia Musculoskeletal: Chronic back pain Derm: None - Past Surgical History Past Surgical History: Yes General: Cholecystectomy Neuro: Other HEENT: Tonsil/Adenoidectomy - Present Medications Home Medications: Ambulatory Orders Medication Instructions Recorded Confirmed Albuterol Sulfate [Proair Hfa] PRN 07/19/13 01/23/15 Calcium Acetate [Phoslo] 667 mg PO TIDWM 07/19/13 01/23/15 Cholecalciferol (Vitamin D3) 1,000 unit PO BID 07/19/13 01/23/15 [Vitamin D] Gabapentin [Neurontin] 600 mg PO Q6HR 07/19/13 01/23/15 Levothyroxine Sodium [Levoxyl] 225 mcg PO DAILY 07/19/13 01/23/15 Lisinopril 20 mg PO DAILY 07/19/13 01/23/15 Loratadine [Claritin] 10 mg PO DAILY 07/19/13 01/23/15 Methylcellulose [Fiber] 500 mg PO 07/19/13 01/23/15 Metoclopramide Inj [Reglan] 07/19/13 01/23/15 Metoprolol Succinate [Toprol Xl] 25 mg PO DAILY 07/19/13 01/23/15 Metoprolol Succinate [Toprol Xl] 50 mg PO QPM 07/19/13 01/23/15 Morphine Ir [Ms Ir] 15 mg PO Q6H PRN 07/19/13 01/23/15 OLANZapine [Zyprexa] 5 mg PO DAILY 07/19/13 01/23/15 Omeprazole [Prilosec] 40 mg PO DAILY 07/19/13 01/23/15 PARoxetine HCl [Paxil] 20 mg PO DAILY 07/19/13 01/23/15 Sevelamer Carbonate [Renvela] 1,600 mg PO AC 07/19/13 01/23/15 Simvastatin [Zocor] 20 mg PO QPM 07/19/13 01/23/15 levoFLOXacin [Levaquin] 500 mg PO ONCE #5 tablet 04/22/14 01/23/15 Aspirin 325 mg PO DAILY 01/23/15 01/23/15 Testosterone [Androderm] 4 mg TOP DAILY 01/23/15 01/23/15 - Allergies Allergies/Adverse Reactions: Allergies Allergy/AdvReac Type Severity Reaction Status Date / Time Penicillins Allergy Severe Unknown Verified 01/25/22 12:10 codeine AdvReac Severe Unknown Verified 01/25/22 12:10 - Social History Does the pt smoke?: Yes Smoking Status: Current every day smoker Does the pt drink ETOH?: No Does the pt have substance abuse?: No - Immunizations Immunizations are current?: Yes - POLST Patient has POLST: No PD ED PE NORMAL - Vitals Vital signs reviewed: Yes - General General: Alert and oriented X 3, No acute distress, Other (Appears chronically ill but in no acute distress.) - HEENT HEENT: Atraumatic, PERRL, EOMI, Moist mucous membranes, Pharynx benign - Neck Neck: Supple, no meningeal sign, No JVD - Cardiac Cardiac: RRR, No murmur, No gallop, No rub, Strong equal pulses - Respiratory Respiratory: No respiratory distress, Clear bilaterally, Other (Right chest port) - Abdomen Abdomen: Normal bowel sounds, Soft, Non tender, Non distended, No organomegaly - Back Back: No CVA TTP, No spinal TTP - Derm Derm: Normal color, Warm and dry, No rash - Extremities Extremities: No deformity, No tenderness to palpate, Normal ROM s pain, No edema - Neuro Neuro: Alert and oriented X 3, No sensory deficit, Normal speech, Other (Weakness in the right arm and both lower legs., Normal sensation. No facial palsy. There is minor Right arm motor drift. No left arm motor drift. Patient's legs are both weak, is able to lift them off the bed bilaterally but no strength against gravity. Normal sensation throughout. No aphasia or ) Eye Opening: Spontaneous Motor: Obeys Commands Verbal: Oriented GCS Score: 15 - Psych Psych: Normal mood, Normal affect Results - Vitals Vitals: Vital Signs - 24 hr 01/25/22 01/25/22 01/25/22 12:12 12:15 12:45 Temperature 37.4 C 37.4 C Heart Rate 80 80 79 Respiratory 32 H 32 H 24 Rate Blood Pressure 141/77 H 141/77 H 143/80 H O2 Saturation 95 95 94 01/25/22 01/25/22 01/25/22 13:15 13:30 14:00 Temperature Heart Rate 80 79 82 Respiratory 22 22 24 Rate Blood Pressure 140/93 H 154/81 H 156/77 H O2 Saturation 100 100 96 01/25/22 01/25/22 01/25/22 14:30 15:00 16:00 Temperature 37.0 C 37.0 C Heart Rate 85 86 82 Respiratory 24 22 18 Rate Blood Pressure 157/86 H 148/86 H 130/80 O2 Saturation 98 98 98 01/25/22 01/25/22 01/25/22 17:00 17:30 18:00 Temperature 37.0 C Heart Rate 88 88 86 Respiratory 21 24 22 Rate Blood Pressure 140/90 H 143/90 H 140/88 H O2 Saturation 98 100 100 Oxygen O2 Source Room air - EKG (time done) No standard instances Rate: Rate (enter#) (79) Rhythm: NSR [place]: LAD Intervals: Normal LA QRS: Normal Ischemia: Non specific changes Compare to prior EKG: Old EKG unavailable Computer interpretation: Agree with computer - Labs Labs: Laboratory Tests 01/25/22 01/25/22 01/25/22 12:09 12:09 12:09 WBC 11.9 H RBC 2.98 L Hgb 9.4 L Hct 29.1 L MCV 97.7 H MCH 31.5 H MCHC 32.3 RDW 15.3 H Plt Count 143 MPV 10.7 Neut # (Auto) 10.6 H Lymph # (Auto) 0.3 L [place] # (Auto) 0.8 Eos # (Auto) 0.0 Baso # (Auto) 0.1 Absolute Nucleated RBC 0.00 Nucleated RBC % 0.0 PT 11.8 INR 1.0 Sodium 134 L Potassium 4.9 Chloride 89 L Carbon Dioxide 26 Anion Gap 19.0 H BUN 84 H* Creatinine 7.0 H* Estimated GFR (MDRD) 8 L Glucose 225 H Calcium 9.5 Total Bilirubin 2.0 H AST 23 ALT 16 Alkaline Phosphatase 359 H Troponin I High Sens Total Protein 6.9 Albumin 2.7 L Globulin 4.2 Albumin/Globulin Ratio 0.6 L Lipase 23 01/25/22 01/25/22 01/25/22 12:09 15:00 16:55 WBC RBC Hgb Hct MCV MCH MCHC RDW Plt Count MPV Neut # (Auto) Lymph # (Auto) [place] # (Auto) Eos # (Auto) Baso # (Auto) Absolute Nucleated RBC Nucleated RBC % PT INR Sodium Potassium Chloride Carbon Dioxide Anion Gap BUN Creatinine Estimated GFR (MDRD) Glucose Calcium Total Bilirubin AST ALT Alkaline Phosphatase Troponin I High Sens 49.6 H* 55.6 H* 53.9 H* Total Protein Albumin Globulin Albumin/Globulin Ratio Lipase PD MEDICAL DECISION MAKING - ED course Complexity details: reviewed old records, reviewed results, re-evaluated patient, considered differential, d/w patient ED course: This Is a 71-year-old male with an extensive past medical history as noted above including end-stage renal disease on dialysis, lung cancer, hypertension who presented with a week or more of generalized weakness, more so in the legs and right arm. It initially came in as a Code stroke however there was no acute neuro changes according to the patient And on physical exam there were no acute findings but he does have chronic right sided weakness. I discussed findings with the telestroke provider and as they were not acute symptoms, he did not recommend an evaluation by neurology but suggested MRI and MRA of the brain To check for subacute stroke. These were obtained and show no acute findings. Patient's labs are largely reassuring, he of course has chronic kidney disease however his potassium is stable and he may go to dialysis tomorrow. He does have a right sided moderate pleural effusion however is not requiring any supplemental oxygen and he denies any shortness of breath, chest pain or New cough. Low suspicion for underlying pneumonia and suspect this is related to hi s CKD or underlying Lung cancer. The patient can follow-up with this with his PCP and/or oncologist as again he is not requiring any supplemental oxygen at this time and has no new concerns in this regard. There are no other acute findings to explain his weakness. He does not produce any urine therefore urinalysis was not obtained. He will therefore be discharged home in stable condition was advised to go to dialysis tomorrow if at all possible. I discussed return precautions in detail with the patient if new or worsening symptoms Departure - Departure Disposition: 01 Home, Self Care Clinical Impression: Weakness Condition: Good Instructions: ED Weakness [facility] Comments: You presented with weakness and concern for possible stroke. Weakness seems to have been progressive over the last week or possibly longer. I work-up today was generally reassuring. Your labs are stable and are not suggestive of infection, your renal function is stable as someone who is on chronic dialysis. You will need to go to dialysis tomorrow if possible given you missed today. We were concerned for possible stroke and did a head CT which showed no acute findings but you do have numerous older strokes. We proceeded with an MRI of y our brain and MRA of your brain to further evaluate for possible acute stroke and there was no acute stroke findings. On your chest x-ray, you do have signs of fluid buildup in the right side of the lung This is likely not an acute pneumonia and may be related to your fluid status from your kidney disease or your history of lung cancer. At this time, no acute intervention is needed but if you develop shortness of breath or fever we would need to see you back here in the ER otherwise you will need to follow-up with your primary doctor and oncologist for the right Lung x-ray findings. Please return to the ER if you have any new or worsening symptoms. Discharge Date/Time: 01/25/22 18:29
--- NOTE | 2022-01-25 12:09 | CT Report ---
PROCEDURE: Head W/O Stroke Protocol INDICATIONS: Neuro deficit, acute, stroke suspected TECHNIQUE: Noncontrast 4.5 mm thick angled axial sections acquired from the foramen magnum to the vertex, with c oronal reformats. For radiation dose reduction, the following was used: automated exposure control, adjustment of mA and/or kV according to patient size. COMPARISON: Head CT 09/24/2021. FINDINGS: Image quality: Fair. CSF spaces: Basal cisterns are patent. No extra-axial fluid collections. Ventricles are normal in size and shape. Brain: No midline shift. No intracranial masses or hemorrhage. Basal ganglia calcifications. Area of encephalomalacia in the right frontal lobe is unchanged. Hypodensity at the right basal ganglia is unchanged. Area of encephalomalacia in the left frontal parietal lobe is unchanged. Findings of gas main fitter sandra microvascular ischemic disease. No new infarct identified. Skull and face: Calvarium and visualized facial bones are intact, without suspicious lesions. Prior frontal craniotomy. Sinuses: Mucosal thickening in the left frontal sinus. Visualized sinuses and mastoids are otherwise clear. IMPRESSION: No acute intracranial hemorrhage. Prior multifocal infarcts are similar. Results were communicated to POLO Lawson at 01/25/2022 12:06 PM PST. This study fulfills neurological imaging criteria for inclusion or exclusion of acute stroke therapie s based on available published neurological imaging guidelines. Reviewed by: Ravinder Mendoza MD on 01/25/2022 12:08 PM PST Approved by: Ravinder Mendoza MD on 01/25/2022 12:08 PM PST Station ID: [id number]
[2022-01-25 12:13] LABS: BASOPHILS # (AUTO) 0.1 10^3/uL (0.0-0.1); BASOPHILS % (AUTO) 0.4 %; EOSINOPHILS % (AUTO) 0.3 %; HCT - HEMATOCRIT 29.1 % (42.0-52.0); HGB - HEMOGLOBIN 9.4 g/dL (14.0-18.0); LYMPHOCYTES # (AUTO) 0.3 10^3/uL (1.5-3.5); LYMPHOCYTES % (AUTO) 2.5 %; MEAN CORPUSCULAR HEMOGLOBIN 31.5 pg (27.0-31.0); MEAN CORPUSCULAR HGB CONC 32.3 g/dL (32.0-36.0); MEAN CORPUSCULAR VOLUME 97.7 fL (80.0-94.0); MEAN PLATELET VOLUME 10.7 fL (7.4-11.4); MONOCYTES # (AUTO) 0.8 10^3/uL (0.0-1.0); MONOCYTES % (AUTO) 6.8 %; NEUTROPHILS # (AUTO) 10.6 10^3/uL (1.5-6.6); NEUTROPHILS % (AUTO) 89.2 %; PLT - PLATELET COUNT 143 10^3/uL (130-450); RED BLOOD COUNT 2.98 10^6/uL (4.70-6.10); RED CELL DISTRIBUTION WIDTH 15.3 % (12.0-15.0); WHITE BLOOD COUNT 11.9 x10^3/uL (4.8-10.8)
[2022-01-25 12:21] LABS: PT - PROTHROMBIN TIME 11.8 secs (9.9-12.6)
[2022-01-25 12:38] LABS: ALBUMIN 2.7 g/dL (3.2-5.5); ALBUMIN/GLOBULIN RATIO 0.6 (1.0-2.2); CALCIUM 9.5 mg/dL (8.5-10.3); POTASSIUM 4.9 mmol/L (3.5-5.0); TOTAL PROTEIN 6.9 g/dL (6.7-8.2)
--- NOTE | 2022-01-25 12:51 | XRAY Report ---
PROCEDURE: Chest 1 View X-Ray INDICATIONS: chest pain TECHNIQUE: One view of the chest was acquired. COMPARISON: 02/11/2016 FINDINGS: Surgical changes and devices: Partially seen cervical fusion hardware. Right portacatheter terminate s in the upper SVC. Lungs and pleura: Right greater than left lung disease. Moderate right pleural effusion. Mediastinum: Heart size is at the upper limit of normal. Bones and chest wall: No suspicious bony lesions. Overlying soft tissues appear unremarkable. IMPRESSION: Moderate right pleural effusion and suspected underlying airspace disease and atelectasis. A right po rtacatheter terminates in the upper SVC. Reviewed by: Tyler Ulrich MD on 01/25/2022 12:50 PM PST Approved by: Tyler Ulrich MD on 01/25/2022 12:50 PM PST Station ID: [id number]
--- NOTE | 2022-01-25 16:35 | MRI Report ---
PROCEDURE: ANGIO HEAD WO INDICATIONS: subacute stroke, per telestroke TECHNIQUE: Noncontrast axial 3-D [id number] MR angiogram, with 3-dimensional maximum intensity projection (M IP) reformats of the internal carotid arteries and posterior circulation then performed. COMPARISON: Correlation is made with the accompanying brain MRI and the accompanying head CT, 2021 FINDINGS: Image quality: Motion artifact is noted. Anterior circulation: Intracranial internal carotid arteries demonstrate normal size and intralumina l flow signal. The flow within the paired anterior cerebral arteries is normal and symmetric. The f low within the middle cerebral arteries is normal and symmetric. The anterior communicating artery i s seen. No stenoses, occlusions, or aneurysms. Posterior circulation: Visualized portions of the vertebral arteries demonstrate normal caliber, and join to form a normal appearing basilar artery. The flow within the posterior cerebral arteries is normal and symmetric. No stenoses, occlusions, or aneurysms. IMPRESSION: Motion limited study, without a significant stenosis or occlusion seen. Reviewed by: Vikram Wilson MD on 01/25/2022 3:34 PM [facility] Approved by: Vikram Wilson MD on 01/25/2022 3:34 PM [facility] Station ID: [id number]
--- NOTE | 2022-01-25 16:39 | MRI Report ---
PROCEDURE: BRAIN WO INDICATIONS: subacute stroke TECHNIQUE: Noncontrast axial T1 spin echo, axial T2 fast spin echo, sagittal and axial FLAIR, coronal T2 fast sp in echo, axial gradient echo, axial diffusion and ADC through the brain. COMPARISON: Correlation is made with the accompanying brain MR angiogram and head CT, 01/25/2022. Co rrelation is also made with report only from prior head CT, 01/18/2012. FINDINGS: Image quality: Motion artifact is noted. CSF Spaces: Basal cisterns are patent. No extra-axial fluid collections. Ventricles are normal in size and shape. Brain: Areas of bilateral volume loss and encephalomalacia can be seen involving the superior aspects of both frontal lobes. Within the right frontal area of volume loss and encephalomalacia, there is a pparent biopsy change noted. There is also an additional area of encephalomalacia and volume loss inv olving the anterolateral left frontal lobe. Mild areas of hemosiderin deposition can be seen within t hese regions. No intracranial masses or hemorrhage. Lewis/white matter interface is normal. Brainstem appears norm al. Diffusion-weighted images demonstrate no acute ischemic insult. Normal intravascular flow voids are present. Skull and face: Craniotomy change can be seen on the right anteriorly. Calvarium has normal marrow s ignal. Orbits appear normal. Sinuses: There is focal mucosal thickening seen involving the left frontal sinus, as on series 9 joel ge 12. Sinuses and mastoids are otherwise relatively clear. IMPRESSION: No findings of acute or subacute infarction are seen. Bilateral areas of focal volume loss and encephalomalacia are seen, which are attributed to a remote infarction. Biopsy change of the right frontal lobe can be seen superiorly. Please correlate with known patient h istory. Focal left frontal sinus mucosal thickening noted. Reviewed by: Vikram Wilson MD on 01/25/2022 3:37 PM [place] Approved by: Vikram Wilson MD on 01/25/2022 3:37 PM [place] Station ID: [id number]
[2022-01-25 18:06] VITALS: BP 140/88
== END 2022-01-25 18:29 | disposition home or self-care (01) ==
LOC: EDSEX → EDUNIT# → ED 11:47
DX: R53.1 Weakness (principal); J90 Pleural effusion, not elsewhere classified; N18.9 Chronic kidney disease, unspecified; Z99.2 Dependence on renal dialysis; Z85.118 Personal history of other malignant neoplasm of bronchus and lung; F17.200 Nicotine dependence, unspecified, uncomplicated; Z66 Do not resuscitate
CPT/HCPCS: 36415; 80053; 83690; 84484; 85025; 85610; 93005; 96374; 99283

== ENCOUNTER → 2022-01-26 | Outpatient (CLI) | payer MEDICARE, MEDICAID | END | disposition short-term general hospital (02) | LOC: EMS 18:33 | DX: R53.1 Weakness (principal); R53.83 Other fatigue; R46.4 Slowness and poor responsiveness; Z99.2 Dependence on renal dialysis | CPT/HCPCS: A0425; A0429 ==